=== PATIENT | male | born 1955 | race Caucasian/White ===

== ENCOUNTER 2020-07-11 02:40 | Emergency (ER) | payer SELFPAY ==
[~2020-07-11] VITALS: Ht 182.9 cm; Wt 99.8 kg
[2020-07-11] MEDS ORDERED: ONDANSETRON HCL INJ 2MG/ML 2ML 2 MG/ML VIAL IV STA ×2 (02:43→07:45)
[2020-07-11] MEDS ORDERED: CHLORDIAZEPOXIDE HCL 25 MG CAP PO ONE (02:45)
[2020-07-11] MEDS ORDERED: MULTIVITAMINS- 12 INJECTION 10 ML, FOLIC ACID MDV 5 MG, THIAMINE HCL INJ 100 MG in SODI... IV ONE (02:45)
[2020-07-11 03:15] LABS: BASOPHILS # (AUTO) 0.1 (0.0-0.1); BASOPHILS % 0.9 % (0.0-1.0); EOSINOPHILS # (AUTO) 0.1 (0.0-0.4); EOSINOPHILS % 1.1 % (0.0-6.0); HEMATOCRIT 42.2 % (38.2-49.6); HEMOGLOBIN 15.2 g/dL (14.0-18.0); LYMPHOCYTES # (AUTO) 4.4 (1.0-3.2); LYMPHOCYTES % 40.7 % (18.0-39.1); MEAN CORPUSCULAR HEMOGLOBIN 36.1 pg (28-32); MEAN CORPUSCULAR VOLUME 100.2 fL (81-99); MONOCYTES # (AUTO) 1.6 (0.2-0.8); MONOCYTES % 14.8 % (4.4-11.3); NEUTROPHILS # (AUTO) 4.5 (2.1-6.9); NEUTROPHILS % 42.1 % (38.7-80.0); PLATELET COUNT 428 x10e3/uL (140-360); RED BLOOD COUNT 4.21 x10e6/uL (4.3-5.7); RED CELL DISTRIBUTION WIDTH 15.5 % (11.7-14.4)
[2020-07-11 03:35] LABS: ALANINE AMINOTRANSFERASE 87 IU/L (0-55); ALBUMIN 4.3 g/dL (3.5-5.0); ALBUMIN/GLOBULIN RATIO 0.9 (0.8-2.0); ALKALINE PHOSPHATASE 61 IU/L (40-150); ANION GAP 20.8 mmol/L (8-16); BLOOD UREA NITROGEN 12 mg/dL (7-26); BUN/CREATININE RATIO 11 (6-25); CALCIUM 8.7 mg/dL (8.4-10.2); CARBON DIOXIDE 22 mmol/L (22-29); CHLORIDE 101 mmol/L (98-107); CREATINE KINASE 142 IU/L (30-200); CREATININE, SERUM 1.06 mg/dL (0.72-1.25); EST GLOMERULAR FILTRATION RATE > 60 ML/MIN (60-); GLUCOSE 101 mg/dL (74-118); POTASSIUM 3.8 mmol/L (3.5-5.1); SODIUM 140 mmol/L (136-145)
[2020-07-11] MEDS ORDERED: ONDANSETRON HCL INJ 2MG/ML 2ML 2 MG/ML VIAL ONE (03:53)
--- NOTE | 2020-07-11 03:57 | Emergency Department Note ---
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 Arrival Mode: [place] Campaign Management Senior Manager Required: No Onset (how long ago): day(s) (2) Location: all over Quality: shakes, nausea Radiation: Reports non-radiation Severity: severe Onset quality: gradual Duration (how long): day(s) (2) Timing of current episode: intermittent Progression: worsening Chronicity: recurrent Context: Denies recent illness, Denies recent surgery Relieving factors: other (drinking etoh) Exacerbating factors: other (stop drinking etoh) Associated symptoms: Reports denies other symptoms Past Medical/Family History Physician Review I have reviewed the patient's past medical and family history. Any updates have been documented here. Past Medical History Recent Fever: No Clinical Suspicion of Infectio: No New/Unexplained Change in Ment: No Past Medical History: Hypothyroidism, Hepatitis C, Seizure Disorder, Anxiety, Depression Other Medical History: ETOH ABUSE/WITHDRAWL Other Surgery: SPLEENECTOMY EXPLORATORY LAP. Social History Smoking Cessation: Never Smoker Alcohol Use: Daily (heavy) Any Illegal Drug Use: No Family History Family history of heart diseas: No Review of Systems Review of Systems Constitutional: Reports no symptoms EENTM: Reports no symptoms Cardiovascular: Reports no symptoms Respiratory: Reports no symptoms Gastrointestinal: Reports no symptoms Genitourinary: Reports no symptoms Musculoskeletal: Reports no symptoms Integumentary: Reports no symptoms Neurological: Reports as per HPI Psychological: Reports no symptoms Endocrine: Reports no symptoms Hematological/Lymphatic: Reports no symptoms Physical Exam Related Data Allergies: Coded Allergies: No Known Allergies (Unverified , 07/11/20) Triage Vital Signs Vital Signs Date Time Temp Pulse Resp B/P (MAP) Pulse Ox O2 Delivery O2 Flow Rate FiO2 07/11/20 02:40 98.8 109 24 133/113 96 Room Air Vital signs reviewed: Yes Physical Exam CONSTITUTIONAL Constitutional: Present well-developed, Present well-nourished, Present distressed (mild) HENT HENT: Present normocephalic, Present atraumatic, Present oropharynx clear/moist, Present nose normal HENT L/R: Present left ext ear normal, Present right ext ear normal EYES Eyes: Reports PERRL, Reports conjunctivae normal NECK Neck: Present ROM normal PULMONARY Pulmonary: Present effort normal, Present breath sounds normal CARDIOVASCULAR Cardiovascular: Present regular rhythm, Present heart sounds normal, Present capillary refill normal, Present tachycardia GASTROINTESTINAL Abdominal: Present soft, Present nontender, Present bowel sounds normal GENITOURINARY Genitourinary: Present exam deferred SKIN Skin: Present warm, Present dry MUSCULOSKELETAL pt with left knee pain with rom, mild swelling present NEUROLOGICAL Neurological: Present alert, Present oriented x 3, Present no gross motor or sensory deficits PSYCHOLOGICAL Psychological: Present mood/affect normal, Present judgement normal Results Laboratory Result Diagram: 07/11/20 0255 07/11/20 0255 Laboratory Laboratory Tests Test 07/11/20 02:55 07/11/20 02:53 White Blood Count 10.75 x10e3/uL (4.8-10.8) Red Blood Count 4.21 x10e6/uL (4.3-5.7) Hemoglobin 15.2 g/dL (14.0-18.0) Hematocrit 42.2 % (38.2-49.6) Mean Corpuscular Volume 100.2 fL (81-99) Mean Corpuscular Hemoglobin 36.1 pg (28-32) Mean Corpuscular Hemoglobin Concent 36.0 g/dL (31-35) Red Cell Distribution Width 15.5 % (11.7-14.4) Platelet Count 428 x10e3/uL (140-360) Neutrophils (%) (Auto) 42.1 % (38.7-80.0) Lymphocytes (%) (Auto) 40.7 % (18.0-39.1) Monocytes (%) (Auto) 14.8 % (4.4-11.3) Eosinophils (%) (Auto) 1.1 % (0.0-6.0) Basophils (%) (Auto) 0.9 % (0.0-1.0) Neutrophils # (Auto) 4.5 (2.1-6.9) Lymphocytes # (Auto) 4.4 (1.0-3.2) Monocytes # (Auto) 1.6 (0.2-0.8) Eosinophils # (Auto) 0.1 (0.0-0.4) Basophils # (Auto) 0.1 (0.0-0.1) Absolute Immature Granulocyte (auto 0.04 x10e3/uL (0-0.1) Sodium Level 140 mmol/L (136-145) Potassium Level 3.8 mmol/L (3.5-5.1) Chloride Level 101 mmol/L (98-107) Carbon Dioxide Level 22 mmol/L (22-29) Anion Gap 20.8 mmol/L (8-16) Blood Urea Nitrogen 12 mg/dL (7-26) Creatinine 1.06 mg/dL (0.72-1.25) Estimat Glomerular Filtration Rate > 60 ML/MIN (60-) BUN/Creatinine Ratio 11 (6-25) Glucose Level 101 mg/dL (74-118) Calcium Level 8.7 mg/dL (8.4-10.2) Total Bilirubin 0.8 mg/dL (0.2-1.2) Aspartate Amino Transf (AST/SGOT) 109 IU/L (5-34) Alanine Aminotransferase (ALT/SGPT) 87 IU/L (0-55) Alkaline Phosphatase 61 IU/L (40-150) Creatine Kinase 142 IU/L (30-200) Creatine Kinase MB 1.30 ng/mL (0-5.0) Troponin I 0.005 ng/mL (0-0.300) Total Protein 8.9 g/dL (6.5-8.1) Albumin 4.3 g/dL (3.5-5.0) Globulin 4.6 g/dL (2.3-3.5) Albumin/Globulin Ratio 0.9 (0.8-2.0) Amylase Level 63 U/L (25-125) Lipase 21 U/L (8-78) Ethyl Alcohol Level 219.6 mg/dL (0.0-10.0) Coronavirus (PCR) Not detected (NOTDETECTED) Laboratory Tests Test 07/11/20 02:55 07/11/20 02:53 White Blood Count 10.75 x10e3/uL (4.8-10.8) Red Blood Count 4.21 x10e6/uL (4.3-5.7) Hemoglobin 15.2 g/dL (14.0-18.0) Hematocrit 42.2 % (38.2-49.6) Mean Corpuscular Volume 100.2 fL (81-99) Mean Corpuscular Hemoglobin 36.1 pg (28-32) Mean Corpuscular Hemoglobin Concent 36.0 g/dL (31-35) Red Cell Distribution Width 15.5 % (11.7-14.4) Platelet Count 428 x10e3/uL (140-360) Neutrophils (%) (Auto) 42.1 % (38.7-80.0) Lymphocytes (%) (Auto) 40.7 % (18.0-39.1) Monocytes (%) (Auto) 14.8 % (4.4-11.3) Eosinophils (%) (Auto) 1.1 % (0.0-6.0) Basophils (%) (Auto) 0.9 % (0.0-1.0) Neutrophils # (Auto) 4.5 (2.1-6.9) Lymphocytes # (Auto) 4.4 (1.0-3.2) Monocytes # (Auto) 1.6 (0.2-0.8) Eosinophils # (Auto) 0.1 (0.0-0.4) Basophils # (Auto) 0.1 (0.0-0.1) Absolute Immature Granulocyte (auto 0.04 x10e3/uL (0-0.1) Sodium Level 140 mmol/L (136-145) Potassium Level 3.8 mmol/L (3.5-5.1) Chloride Level 101 mmol/L (98-107) Carbon Dioxide Level 22 mmol/L (22-29) Anion Gap 20.8 mmol/L (8-16) Blood Urea Nitrogen 12 mg/dL (7-26) Creatinine 1.06 mg/dL (0.72-1.25) Estimat Glomerular Filtration Rate > 60 ML/MIN (60-) BUN/Creatinine Ratio 11 (6-25) Glucose Level 101 mg/dL (74-118) Calcium Level 8.7 mg/dL (8.4-10.2) Total Bilirubin 0.8 mg/dL (0.2-1.2) Aspartate Amino Transf (AST/SGOT) 109 IU/L (5-34) Alanine Aminotransferase (ALT/SGPT) 87 IU/L (0-55) Alkaline Phosphatase 61 IU/L (40-150) Creatine Kinase 142 IU/L (30-200) Total Protein 8.9 g/dL (6.5-8.1) Albumin 4.3 g/dL (3.5-5.0) Globulin 4.6 g/dL (2.3-3.5) Albumin/Globulin Ratio 0.9 (0.8-2.0) Amylase Level 63 U/L (25-125) Lipase 21 U/L (8-78) Ethyl Alcohol Level 219.6 mg/dL (0.0-10.0) Lab results reviewed: Yes Imaging Imaging results reviewed: Yes Impressions Procedure: [id number] DX/KNEE LEFT THREE VIEWS Exam Date: Exam Time: REPORT STATUS: Signed KNEE LEFT THREE VIEWS - 3 views HISTORY: Pain COMPARISON: None available. FINDINGS: Bones: No acute displaced fracture. Osseous alignment is within normal limits. Joints: The joint spaces are well-maintained. Soft tissues: The soft tissues appear unremarkable. IMPRESSION: No acute radiographic abnormality. Signed by: Dr. Alex Krishnan MD on 07/11/2020 3:55 AM Dictated By: ALEX KRISNHAN MD 4 Transcribed By: MILKA on 07/11/20354 COPY TO: LEVY HERNANDEZ MD~ Procedure: [id number] DX/CHEST SINGLE (PORTABLE) Exam Date: Exam Time: REPORT STATUS: Signed EXAMINATION: CHEST SINGLE (PORTABLE) INDICATION: ^S/P FALL, ETOH WITHDRAWAL ^Y COMPARISON: None FINDINGS: AP view TUBES and LINES: None. LUNGS: Limited by body habitus and slight rotation. There is no evidence of pneumonia or pulmonary edema. PLEURA: No pleural effusion or pneumothorax. HEART AND MEDIASTINUM: The cardiomediastinal silhouette is unremarkable. BONES AND SOFT TISSUES: No acute osseous lesion. Soft tissues are unremarkable. UPPER ABDOMEN: No free air under the diaphragm. IMPRESSION: No acute thoracic abnormality. Signed by: Dr. Alex Krishnan MD on 07/11/2020 3:54 AM Dictated By: ALEX KRISHNAN MD 3 Transcribed By: MILKA on 07/11/20353 COPY TO: LEVY HERNANDEZ MD~ Procedure: [id number] CT/CT BRAIN WO Exam Date: 07/11/20 Exam Time: 0330 REPORT STATUS: Signed EXAMINATION: Head CT without contrast. HISTORY:Status post fall. COMPARISON:None. TECHNIQUE: Multidetector axial images were obtained from the foramen magnum to the vertex without contrast. The images were reconstructed using brain and bone algorithms. Thin section brain images were reformatted into coronal and sagittal planes. Dose modulation, iterative reconstruction, and/or weight based adjustment of the mA/kV was utilized to reduce the radiation dose to as low as reasonably achievable. Intravenous contrast: None IMAGE QUALITY: Acceptable. FINDINGS: Skull/scalp: No lytic or blastic. lesions. No surgical changes. Parenchyma: Nonspecific bilateral frontoparietal patchy white matter hypodensity are likely related to small vessel ischemic changes. No acute hemorrhage, mass or acute major vascular territorial infarct. Arteries: No density suggestive of thrombosis. Dural sinuses: No abnormal density suggestive of thrombosis. Ventricles: Mild to moderate compensated dilatation due to volume loss. No acute hydrocephalus. Extra-axial spaces: No abnormal density. Brain volume: Moderate generalized predominantly bilateral frontal cerebral volume loss. Craniocervical junction: No mass, Chiari malformation, or basilar invagination. Sella: No mass. Paranasal/mastoid sinuses: Imaged portions unremarkable. IMPRESSION: 1. No acute intracranial abnormality, particularly no acute hemorrhage, mass or major vascular territorial infarct. 2. Mild supratentorial white matter microvascular ischemic changes. 3. Moderate predominantly bilateral frontal cerebral volume loss. Mild cerebellar volume loss. Signed by: Dr. Tana Alan M.D. on 07/11/2020 4:04 AM Dictated By: TANA ALAN MD 3 Transcribed By: MILKA on 07/11/20403 COPY TO: LEVY HERNANDEZ MD~ Procedures 12 Lead ECG Interpretation ECG Interpretation : ECG: ECG 1 Campaign Management Senior Manager: Interpreted by ED physician Date: Jul 11, 2020 Time: 03:09 Rhythm: sinus tachycardia Rate: tachycardia BPM: 102 QRS axis: normal ST segments normal: Yes T waves normal: Yes Clinical Impression: non-specific ECG Assessment & Plan Medical Decision Making MDM pt with etoh withdrawal, pt with tachycardia and hypertensive on arrival cbc,cmp, ekg, cxr, ct brain, etoh, ordered to eval for subdural bleed, etoh intoxication, electrolyte abnormality, anemia banana bag 1 liter ordered at rate of 150 cc/hour librium 25 mg po ordered zofran 4 mg iv ordered pt needs icu bed, no icu beds available at this facility dr calvo at [facility] accepts pt for transfer Assessment & Plan Final Impression: (1) Alcohol withdrawal (2) Alcohol withdrawal syndrome Depart Disposition: [facility]ANS TO OTHER [facility] Last Vital Signs Date Time Temp Pulse Resp B/P (MAP) Pulse Ox O2 Delivery O2 Flow Rate FiO2 07/11/20 03:33 111 28 144/109 96 Room Air 07/11/20 02:40 98.8 Medications in the ED Multivitamins 10 ml/Folic Acid 5 mg/Thiamine HCl 100 mg/Sodium Chloride 1,012 ml @ 150 mls/hr [id number] ONCE IV ; Start 07/11/20 at 02:45; Stop 07/11/20 at 09:29 Ondansetron HCl 4 mg NOW STAT IV ; Start 07/11/20 at 02:43; Stop 07/11/20 at 02:44 Chlordiazepoxide HCl 25 mg ONCE ONCE PO ; Start 07/11/20 at 02:45; Stop 07/11/20 at 02:46 Ondansetron HCl 4 mg STK-MED ONCE .ROUTE ; Start 07/11/20 at 03:53; Stop 07/11/20 at 03:46; Status DC LEVY HERNANDEZ MD Jul 11, 2020 03:57
--- NOTE | 2020-07-11 04:08 | Diagnostic Imaging Report ---
EXAMINATION: Head CT without contrast. HISTORY:Status post fall. COMPARISON:None. TECHNIQUE: Multidetector axial images were obtained from the foramen magnum to the vertex without contrast. The images were reconstructed using brain and bone algorithms. Thin section brain images were reformatted into coronal and sagittal planes. Dose modulation, iterative reconstruction, and/or weight based adjustment of the mA/kV was utilized to reduce the radiation dose to as low as reasonably achievable. Intravenous contrast: None IMAGE QUALITY: Acceptable. FINDINGS: Skull/scalp: No lytic or blastic. lesions. No surgical changes. Parenchyma: Nonspecific bilateral frontoparietal patchy white matter hypodensity are likely related to small vessel ischemic changes. No acute hemorrhage, mass or acute major vascular territorial infarct. Arteries: No density suggestive of thrombosis. Dural sinuses: No abnormal density suggestive of thrombosis. Ventricles: Mild to moderate compensated dilatation due to volume loss. No acute hydrocephalus. Extra-axial spaces: No abnormal density. Brain volume: Moderate generalized predominantly bilateral frontal cerebral volume loss. Craniocervical junction: No mass, Chiari malformation, or basilar invagination. Sella: No mass. Paranasal/mastoid sinuses: Imaged portions unremarkable. IMPRESSION: 1. No acute intracranial abnormality, particularly no acute hemorrhage, mass or major vascular territorial infarct. 2. Mild supratentorial white matter microvascular ischemic changes. 3. Moderate predominantly bilateral frontal cerebral volume loss. Mild cerebellar volume loss. Signed by: Dr. Tana Alan M.D. on 07/11/2020 4:04 AM
--- OUTSIDE RECORDS SUMMARY | 2020-07-11 04:08 | XMS REPORT | Clinical Summary ---
Author Author [facility] Organization [facility] Address Unknown Phone Unavailable Care Team Providers Care Assisted Living Director Name Role Phone Daly Underwood CONTROLLER INSTRUCTOR PCP Allergies No Known Allergies Medications End Date Status Medication Sig Dispensed Refills Start Date Active gabapentin (NEURONTIN) 1 capsule 90 capsule 0 300 mg every 6 hours 9 capsuleIndications: on Day 1; 1 Alcohol withdrawal capsule every syndrome without 8 hours on complication day 2.; 1 capsule every 12 hours on day 3; 1 capsule daily on day 4. Active folic acid (FOLVITE) 1 mg Take 1 tablet 30 tablet 0 tabletIndications: by mouth 9 Alcohol withdrawal daily. syndrome without complication Active metoprolol succinate Take 0.5 30 tablet 2 06/24 (TOPROL XL) 50 mg tablets by 9 extended release mouth daily. tabletIndications: Essential hypertension, benign Active naproxen (NAPROSYN) 500 Take 1 tablet 40 tablet 0 mg tabletIndications: by mouth 2 9 Chronic right-sided low times daily back pain with as needed for right-sided sciatica Pain. Active GUAIFENESIN-DM CR Take 1 tablet 30 tablet 0 (MUCINEX DM) 30-600 mg by mouth 2 0 tabletIndications: Acute times daily URI as needed for Cough or Congestion. Active loratadine (CLARITIN) 10 Take 1 tablet 30 tablet 0 mg tabletIndications: by mouth 0 Acute URI daily. Active chlordiazePOXIDE DO NOT TAKE 20 capsule 0 (LIBRIUM) 25 mg IF DRINKING 0 capsuleIndications: ALCOHOL. Take Alcohol withdrawal two tablets syndrome without every six complication hours on the first day, then one tablet every six hours on day 2 and 3. Active amLODIPine (NORVASC) 5 mg Take 1 tablet 30 tablet 1 tabletIndications: by mouth 0 Essential hypertension, daily. 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 08/07/2019 Discontinued (Reorder) naproxen (NAPROSYN) 500 Take 1 tablet 40 tablet 0 mg tabletIndications: by mouth 2 9 Chronic right-sided low times daily back pain with as needed for right-sided sciatica Pain. 07/14/2019 Discontinued sertraline (ZOLOFT) 50 mg Take 1 tablet 30 tablet 1 tabletIndications: ASTRID by mouth 9 (generalized anxiety daily for 60 disorder), Moderate days. episode of recurrent major depressive disorder 07/14/2019 Discontinued hydrOXYzine (ATARAX) 25 Take 1-2 60 tablet 1 mg tabletIndications: ASTRID tablets by 9 (generalized anxiety mouth nightly disorder), Moderate at bedtime as episode of recurrent needed for up major depressive disorder to 60 days for Anxiety or Insomnia. 09/10/2019 ledipasvir-sofosbuvir Take 1 tablet 28 tablet 2 (HARVONI) 90-400 mg by mouth 9 TabIndications: Chronic daily for 84 hepatitis C without days. 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 benign 09/07/2019 Discontinued (Reorder) sertraline (ZOLOFT) 50 mg Take 1 tablet 30 tablet 1 tabletIndications: ASTRID by mouth 9 (generalized anxiety daily for 60 disorder), Moderate days. episode of recurrent major depressive disorder 09/07/2019 Discontinued (Reorder) hydrOXYzine (ATARAX) 25 Take 1 to 2 60 tablet 1 mg tabletIndications: ASTRID tablets by 9 (generalized anxiety mouth nightly disorder), Moderate at bedtime as episode of recurrent needed for up major depressive disorder to 60 days for Anxiety or Insomnia. 10/13/2019 Discontinued (Reorder) loratadine (CLARITIN) 10 Take 1 tablet 30 tablet 0 mg tabletIndications: by mouth 9 Environmental allergies daily. 09/15/2019 Discontinued sertraline (ZOLOFT) 50 mg Take 1 tablet 30 tablet 0 tabletIndications: ASTRID by mouth 0 (generalized anxiety daily. disorder), Moderate episode of recurrent major depressive disorder 02/22/2020 Discontinued (Alternate ther apy) amLODIPine (NORVASC) 2.5 Take 1 tablet 30 tablet 0 mg tabletIndications: by mouth 0 Essential hypertension, daily. benign 09/15/2019 Discontinued hydrOXYzine (ATARAX) 25 Take 1-2 60 tablet 0 mg tabletIndications: ASTRID tablets by 0 (generalized anxiety mouth nightly disorder), Moderate at bedtime as episode of recurrent needed for major depressive disorder Anxiety or Insomnia. 10/09/2019 Discontinued sertraline (ZOLOFT) 50 mg Take 1 tablet 90 tablet 0 tabletIndications: ASTRID by mouth 0 (generalized anxiety daily for 90 disorder), Moderate days. episode of recurrent major depressive disorder 12/17/2019 hydrOXYzine (ATARAX) 25 Take 1-2 180 tablet 0 mg tabletIndications: ASTRID tablets by 0 (generalized anxiety mouth nightly disorder), Moderate at bedtime as episode of recurrent needed for up major depressive disorder to 90 days for Anxiety or Insomnia. 12/29/2019 Discontinued (Reorder) sertraline (ZOLOFT) 50 mg Take 1 tablet 30 tablet 1 tabletIndications: ASTRID by mouth 0 (generalized anxiety daily for 90 disorder), Moderate days. episode of recurrent major depressive disorder 06/21/2020 Discontinued sertraline (ZOLOFT) 50 mg Take 1 tablet 90 tablet 1 tabletIndications: ASTRID by mouth 0 (generalized anxiety daily for 90 disorder), Moderate days. episode of recurrent major depressive disorder 01/08/2020 hydrOXYzine (ATARAX) 25 Take 1 tablet 30 tablet 0 mg tabletIndications: ASTRID by mouth 3 0 (generalized anxiety times daily disorder) as needed for up to 10 days for Itching. Active Problems Problem Noted Date Hypothyroidism due to acquired atrophy of thyroid Essential hypertension, benign 02/06/2019 MDD (major depressive disorder) 02/06/2019 ASTRID (generalized anxiety disorder) 02/06/2019 Alcohol withdrawal 06/02/2018 Nausea 05/20/2018 Obesity, Class I, BMI 30-34.9 05/03/2018 Chronic right-sided low back pain with right-sided sc iatica since 201405/03/2018 Chronic hepatitis C without hepatic coma 05/03/2018 Alcoholic intoxication without complica tion Encounters Care Team Description Date Type Specialty Caryl Rodrigues MD Medications 06/21/2020 Refill Family Practice Emperatriz Ambrocio MD Zaidi, Hashim Q, MD Alcoholic intoxication without complicat ion (Primary Dx); Hypokalemia 04/09/2020 Emergency Emergency Medicine Ya Fischer NP 02/29/2020 Telephonic Gastroenterology Encounter Ania Adams MD Hypothyroidism due to acquired atrophy o f thyroid 02/15/2020 Telephonic Family Practice Encounter Ania Adams MD Medications 02/12/2020 Refill Internal Medicine Amy Stratton LVN 01/08/2020 Orders Only Family Practice Caryl Rodrigues MD ASTRID (generalized anxiety disorder); Moderate episode of recurrent major depressive disorder; Alcohol withdrawal syndrome without complication 12/29/2019 Telephonic Family Practice Encounter Caryl Rodrigues MD 12/29/2019 Orders Only Family Practice Casie Oswald NP Acute URI (Primary Dx); Essential hypertension; Preventative health care; Screening for HIV (human immunodeficiency virus); Homeless; Health education 10/13/2019 Office Visit Family Practice Daly Underwood NP Medications 10/09/2019 Refill Family Practice Aria Horn MD Alcohol use disorder, severe, in early r emission, in controlled environment, dependence (Primary Dx); ASTRID (generalized anxiety disorder); Moderate episode of recurrent major depressive disorder; History of posttraumatic stress disorder (PTSD) 09/15/2019 Office Visit Psychiatry Ya Fischer NP Chronic hepatitis C without hepatic coma (Primary Dx) 09/14/2019 Office Visit Gastroenterology Nolan Engel NP Essential hypertension, benign (Primary Dx); Screening for HIV (human immunodeficiency virus); ASTRID (generalized anxiety disorder); Moderate episode of recurrent major depressive disorder; Dietary counseling for Above / Below Normal BMI 09/07/2019 Office Visit Family Practice Nolan Engel NP Environmental allergies; Chronic right-sided low back pain with right-sided sciatica x 3 years 08/07/2019 Office Visit Family [facility] Ya Fischer NP Anderson, Tonya Nicole, LUIS 07/20/2019 Nurse Only Aria Horn MD ASTRID (generalized anxiety disorder); Moderate episode of recurrent major depressive disorder 07/14/2019 Office Visit Psychiatry after 07/11/2019 Immunizations Name Administration Dates Next Due Influenza Vaccine 11/14/2018 (Deferred: Vacci ne Unavailable) Influenza, Seasonal, 06/26/2017 Injectable Influenza, 06/30/2019 Vaccine<FLUCELVAX>(Multi- Dose) PPD 05/13/2019 PPV 23 (Pneumococcal 10/28/2017 Polysaccharide 23 Valent) Twinrix-HEP A&b 07/20/2019, 06/18/2019 Family History Medical History Relation Name Comments Hypertension Father Stroke Father Hypertension Mother Relation Name Status Comments Brother Alive Father Mother Alive Social History Date Tobacco Use Types Packs/Day Years Used Never Smoker Smokeless Tobacco: Never Used Tobacco Cessation: Counseling Given: Yes Drinks/Week oz/Week Comments Alcohol Use 60 Shots of liquor 60.0 Last time used 05/13/19 Yes Food Insecurity Answer Date Recorded Within the past 12 months, you worried that your Never salvador e 05/13/2019 food would run out before you got money to buy more. Within the past 12 months, the food you bought Never true 05/13/2019 just didn't last and you didn't have mo tish to get more. Sex Assigned at Date Recorded Not on file Industry Job Start Date Occupation Not on file Not on file Not on file Travel End Travel History Travel Start No recent travel history available. Last Filed Vital Signs Reading Time Taken Comments Vital Sign 151/93 04/09/2020 8:00 AM CDT Blood Pressure 72 04/09/2020 8:00 AM CDT Pulse 36.5 C (97.7 F) 04/09/2020 8:00 AM CDT Temperature 17 04/09/2020 8:00 AM CDT Respiratory Rate 96% 04/09/2020 8:00 AM CDT Oxygen Saturation - - Inhaled Oxygen Concentration 102.1 kg (225 lb) 10/13/2019 1:26 PM PART MAKER Weight 179.3 cm (5' 10.6") 10/13/2019 1:26 PM PART MAKER Height 31.74 10/13/2019 1:26 PM PART MAKER Body Mass Index Plan of Treatment Health Maintenance Due Date Last Done Comments Colorectal Cancer Scrn 05/20/2020 05/20/2019 Annual (FIT/FOBT) Age 50 to 75 IMM Influenza Seasonal 06/02/2020 06/30/2019, Jun to October (>/= 19 yrs) 06/26/2017 Goals Goal Patient Associated Recent Progress Patient-Stat Aut hor Goal Type Problems ed? 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 Mechanic Procedures Comments Procedure Name Priority Date/Time Associated Diag nosis LIPASE STAT 04/09/2020 7:06 AM CDT LIVER PROFILE STAT 04/09/2020 7:06 AM CDT BASIC METABOLIC PANEL STAT 04/09/2020 7:06 AM CDT CBC STAT 04/09/2020 6:00 AM CDT CBC/DIFF STAT 04/09/2020 6:00 AM CDT CONSULT CLINICAL CASE STAT 04/09/2020 MANAGEMENT (RN/SW) 5:45 AM CDT POC RAPID HIV Routine 10/13/2019 Screening for H IV (human 1:25 PM PART MAKER immunodeficiency virus) after 07/11/2019 Results * Liver Profile (04/09/2020 7:06 AM CDT) Total Protein 7.0 6.0 - 8.3 g/dL [facility] Bilirubin, 0.8 0.2 - 1.2 mg/dL [facility] Total Alkaline 70 34 - 104 U/L [facility] Phosphatase AST 83 (H) 13 - 39 U/L [facility] Direct 0.2 0.0 - 0.2 mg/dL [facility] Bilirubin ALT 53 (H) 7 - 52 U/L [facility] Albumin 3.8 (L) 4.2 - 5.5 g/dL [facility] Specimen Blood - Arm, left Performing Organization Address [facility] [address] [place] [address] [phone] * Lipase (04/09/2020 7:06 AM CDT) Lipase 14 11 - 82 U/L [facility] Specimen Blood - Arm, left Performing Organization Address [facility] [address] [place] [address] [phone] * Basic Metabolic Panel (04/09/2020 7:06 AM CDT) Sodium 141 136 - 145 mmol/L [facility] Potassium 3.1 (L) 3.5 - 5.1 mmol/L [facility] Chloride 101 98 - 107 mmol/L [facility] CO2 26 21 - 31 mmol/L [facility] Urea Nitrogen 9.0 7.0 - 25.0 mg/dL [facility] Creatinine 1.1 0.7 - 1.3 mg/dL [facility] Glucose 101 70 - 110 mg/dL [facility] Calcium 7.9 (L) 8.6 - 10.3 mg/dL [facility] GFR, Estimated 68 (L) >=90 mL/min/1.73 m2 [facility] Anion Gap 14 5 - 16 mmol/L [facility] Specimen Blood - Arm, left Performing Organization Address [facility] [address] [place] [address] [phone] * CBC/Diff (04/09/2020 6:00 AM CDT) WBC 10.3 4.5 - 12.0 K/uL [facility] RBC 3.65 (L) 4.60 - 6.20 M/uL [facility] Hemoglobin 13.2 (L) 14.0 - 18.0 g/dL [facility] Hematocrit 38.4 (L) 40.0 - 54.0 % [facility] MCV 105.2 (H) 82.0 - 92.0 fL [facility] MCH 36.2 (H) 27.0 - 31.0 pg [facility] MCHC 34.4 32.0 - 36.0 g/dL [facility] RDW 59.2 (H) 35.1 - 43.9 fL [facility] Platelet 447 (H) 150 - 400 K/uL [facility] Mean Platelet 10.2 9.4 - 12.4 fL [facility] Volume Percent NRBC 0.0 % [facility] Neutrophil 47.6 34.0 - 67.9 % [facility] Lymphs 29.8 21.8 - 50.0 % [facility] Monocytes 20.3 (H) 5.3 - 12.0 % [facility] Eos 0.8 0.8 - 5.0 % [facility] Basos 1.2 0.2 - 1.2 % [facility] Immature 0.3 0.0 - 0.5 % [facility] Granulocytes Neutrophils 4.91 1.78 - 5.36 K/uL [facility] (Absolute) Lymphs 3.07 1.32 - 3.57 K/uL [facility] (Absolute) Monocytes(Absol 2.09 (H) 0.30 - 0.82 K/uL [facility] RY suzette) Eos (Absolute) 0.08 0.04 - 0.54 K/uL [facility] Baso (Absolute) 0.12 (H) 0.01 - 0.08 K/uL [facility] Immature Grans 0.03 0.00 - 0.03 K/uL [facility] (Abs) Absolute NRBC 0.00 K/uL [facility] Specimen Blood Performing Organization Address City/State/Zipcode Ph one Number [facility] [address] [place] [address] * POC RAPID HIV (10/13/2019 1:25 PM PART MAKER) Rapid HIV Negative Result Rapid HIV Pass Control Specimen Blood after 07/11/2019 Advance Directives Patient Time Study Engineer Explanation Type Date Recorded Advance Directives 09/07/2019 1:49 PM and Living Will Advance Directives 10/13/2019 1:30 PM and Living Will
--- OUTSIDE RECORDS SUMMARY | 2020-07-11 04:09 | XMS REPORT | Clinical Summary ---
Author Author [facility] Address Unknown Phone Unavailable Care Team Providers Care Senior Controls Analyst Name Role Phone Asked, No Pcp PCP Unavailable Allergies No Known Active Allergies Medications End Date Status Medication Sig Dispensed Refills Start Date Active metoprolol succinate XL Take 25 mg by 0 (TOPROL-XL) 25 mg 24 hr mouth daily. tablet Active levothyroxine (SYNTHROID) Take 88 mcg 0 88 mcg tablet by mouth daily. 04/01/2020 Discontinued (Stop Taking at Discharge) ondansetron ODT (Zofran Take 1 tablet 6 tablet 0 ODT) 4 MG disintegrating (4 mg total) 0 tablet by mouth every 8 (eight) hours as needed for vomiting for up to 30 days. 03/09/2020 chlordiazePOXIDE Take 1 15 capsule 0 (LIBRIUM) 25 MG capsule capsule (25 0 mg total) by mouth 3 (three) times a day as needed for anxiety or withdrawal for up to 5 days. 04/09/2020 chlordiazePOXIDE 10mg tid x 24 capsule 0 (LIBRIUM) 5 MG capsule 2days, then 0 5mg tid x 2d, then 5mg bid x 2d, then 5mg qhs for 2d 05/01/2020 gabapentin (NEURONTIN) Take 1 90 capsule 0 100 mg capsule capsule (100 0 mg total) by mouth 3 (three) times a day for 30 days. 05/02/2020 pantoprazole (PROTONIX) Take 1 tablet 30 tablet 0 40 MG EC tablet (40 mg total) 0 by mouth daily for 30 days. 04/06/2020 traMADoL (Ultram) 50 mg Take 1 tablet 10 tablet 0 tabletIndications: acute (50 mg total) 0 pain by mouth every 6 (six) hours as needed for moderate pain for up to 5 days .acute pain. 04/22/2020 sulfamethoxazole-trimetho Take 1 tablet 42 tablet 0 prim (Bactrim DS) 800-160 by mouth 2 0 mg per tablet (two) times a day for 21 days. Active Problems Not on file Resolved Problems Problem Noted Date Resolved Date Sepsis 03/28/2020 04/01/2020 Encounters Care Team Description Date Type Specialty Kelly Tovar MA 04/11/2020 Telephone Orthopedic Surgery Tiburcio Dumont MD Adeniyi, Muniru O., MD Patel, MD Jose Hope Sanjay R., MD Sepsis, due to unspecified organism, uns pecified whether acute organ dysfunction present (HCC) (Primary Dx); Left leg cellulitis; Alcohol withdrawal syndrome without complication (HCC); Septic prepatellar bursitis of left knee 03/28/2020 [facility] Internal Pr dicine - Encounter 04/01/2020 03/28/2020 Travel Norah White MD 03/27/2020 Emergency Emergency Medicine Tristin Mcmillan Jr., MD Alcoholic intoxication with complication (HCC) (Primary Dx); Non-intractable vomiting with nausea, unspecified vomiting type 03/04/2020 Emergency Emergency Medicine 03/04/2020 Travel after 07/11/2019 Surgical History Surgery Date Site/Laterality Comments SPLENECTOMY, TOTAL 09/02/1979 - 09/01/1980 Medical History Medical History Date Comments Hepatitis C History of blood transfusion Depression Spleen injury Seizures (HCC) Alcoholism (HCC) Family History Medical History Relation Name Comments No Known Problems Brother Stroke Father No Known Problems Mother No Known Problems Sister Relation Name Status Comments Brother Alive Father Mother Alive Sister Social History Date Tobacco Use Types Packs/Day Years Used Never Smoker Smokeless Tobacco: Never Used Drinks/Week oz/Week Comments Alcohol Use "trying to stop and go into a treatment center" Yes Education Answer Date Recorded What is the highest level of school you have Bachelor's de gree (e.g., BA, 03/29/2020 completed or the highest degree you have received? A B, BS) Sex Assigned at Date Recorded Not on file Last Filed Vital Signs Reading Time Taken Comments Vital Sign 131/79 04/01/2020 8:21 AM CDT Blood Pressure 67 04/01/2020 2:08 PM CDT Pulse 35.8 C (96.4 F) 04/01/2020 8:21 AM CDT Temperature 18 04/01/2020 2:08 PM CDT Respiratory Rate 98% 04/01/2020 8:21 AM CDT Oxygen Saturation - - Inhaled Oxygen Concentration 95.3 kg (210 lb) 03/28/2020 5:16 AM CDT Weight 182.9 cm (6') 03/28/2020 5:16 AM CDT Height 28.48 03/28/2020 5:16 AM CDT Body Mass Index Plan of Treatment Health Maintenance Due Date Last Done Comments COLONOSCOPY SCREENING 11/10/2007 SHINGLES VACCINES (#1) 11/10/2007 INFLUENZA VACCINE 04/02/2020 06/26/2017 Procedures Comments Procedure Name Priority Date/Time Associated Diag nosis XR CHEST 1 VW PORTABLE Routine 04/01/2020 9:33 AM CDT ESTIMATED GFR Routine 04/01/2020 4:25 AM CDT MAGNESIUM LEVEL Routine 04/01/2020 4:25 AM CDT HEPATIC FUNCTION PANEL Routine 04/01/2020 4:25 AM CDT HC COMPLETE BLD COUNT Routine 04/01/2020 W/AUTO DIFF 4:25 AM CDT BASIC METABOLIC PANEL Routine 04/01/2020 4:25 AM CDT PROSTATE SPECIFIC ANTIGEN Routine 03/31/2020 9:53 AM CDT HEPATITIS ACUTE PANEL Routine 03/31/2020 5:04 AM CDT PROCALCITONIN Routine 03/31/2020 5:04 AM CDT ESTIMATED GFR Routine 03/31/2020 4:55 AM CDT PROTHROMBIN TIME WITH INR Routine 03/31/2020 4:55 AM CDT MAGNESIUM LEVEL Routine 03/31/2020 4:55 AM CDT HEPATIC FUNCTION PANEL Routine 03/31/2020 4:55 AM CDT HC COMPLETE BLD COUNT Routine 03/31/2020 W/AUTO DIFF 4:55 AM CDT BASIC METABOLIC PANEL Routine 03/31/2020 4:55 AM CDT CBC HEMOGRAM Routine 03/30/2020 6:10 AM CDT VANCOMYCIN LEVEL, TROUGH Timed 03/29/2020 8:01 PM CDT NBIA-BCWT-AYE-2 TOTAL Routine 03/29/2020 3:20 PM CDT COVID-19 QUALITATIVE PCR Routine 03/29/2020 2:46 PM CDT GRAM STAIN Routine 03/29/2020 2:00 PM CDT AEROBIC CULTURE Routine 03/29/2020 2:00 PM CDT ANAEROBIC CULTURE Routine 03/29/2020 2:00 PM CDT GENERAL Routine 03/29/2020 Septic prepatel lar 1:55 PM CDT bursitis of left knee CT ABDOMEN PELVIS W WO Routine 03/29/2020 CONTRAST 9:33 AM CDT URINE CULTURE Routine 03/29/2020 7:09 AM CDT URINALYSIS SCREEN AND Routine 03/29/2020 MICROSCOPY, WITH REFLEX 6:37 AM CDT TO CULTURE ESTIMATED GFR Routine 03/29/2020 4:52 AM CDT TRIGLYCERIDES Routine 03/29/2020 4:52 AM CDT LDH Routine 03/29/2020 4:52 AM CDT FIBRINOGEN Routine 03/29/2020 4:52 AM CDT FERRITIN LEVEL Routine 03/29/2020 4:52 AM CDT D-DIMER Routine 03/29/2020 4:52 AM CDT COMPREHENSIVE METABOLIC Routine 03/29/2020 PANEL 4:52 AM CDT C-REACTIVE PROTEIN Routine 03/29/2020 4:52 AM CDT HC COMPLETE BLD COUNT Routine 03/29/2020 W/AUTO DIFF 4:52 AM CDT TYPE AND SCREEN Routine 03/29/2020 4:[address] CHEST WO CONTRAST Routine 03/29/2020 2:02 AM CDT ARTERIAL BLOOD GAS Routine 03/29/2020 12:15 AM CDT RESPIRATORY PATHOGEN Routine 03/28/2020 PANEL 11:09 PM CDT LACTIC ACID LEVEL, SEPSIS Timed 03/28/2020 - NOW AND REPEAT 2X EVERY 1:45 PM CDT 3 HOURS TROPONIN Routine 03/28/2020 9:28 AM CDT LACTIC ACID LEVEL, SEPSIS Timed 03/28/2020 - NOW AND REPEAT 2X EVERY 9:28 AM CDT 3 HOURS COVID-19 QUALITATIVE PCR STAT 03/28/2020 9:05 AM CDT URINALYSIS SCREEN AND Routine 03/28/2020 MICROSCOPY, WITH REFLEX 8:21 AM CDT TO CULTURE URINE CULTURE Routine 03/28/2020 8:21 AM CDT XR CHEST 1 VW PORTABLE STAT 03/28/2020 7:00 AM CDT LACTIC ACID LEVEL, SEPSIS Timed 03/28/2020 - NOW AND REPEAT 2X EVERY 6:55 AM CDT 3 HOURS BLOOD CULTURE, AEROBIC & Routine 03/28/2020 ANAEROBIC 6:15 AM CDT ECG ED PRELIMINARY Routine 03/28/2020 INTERPRETATION 6:05 AM CDT SC CRITICAL CARE, E/M Routine 03/28/2020 30-74 MINUTES 6:05 AM CDT BLOOD CULTURE, AEROBIC & Routine 03/28/2020 ANAEROBIC 6:00 AM CDT TROPONIN Routine 03/28/2020 5:44 AM CDT ECG 12-LEAD STAT 03/28/2020 5:32 AM CDT XR KNEE 3 VW LEFT STAT 03/27/2020 6:48 PM CDT ESTIMATED GFR STAT 03/27/2020 5:56 PM CDT TROPONIN Timed 03/27/2020 5:56 PM CDT ALCOHOL LEVEL, BLOOD STAT 03/27/2020 5:56 PM CDT SEDIMENTATION RATE STAT 03/27/2020 5:56 PM CDT C-REACTIVE PROTEIN STAT 03/27/2020 5:56 PM CDT LACTIC ACID LEVEL, SEPSIS STAT 03/27/2020 - NOW AND REPEAT 2X EVERY 5:56 PM CDT 3 HOURS COMPREHENSIVE METABOLIC STAT 03/27/2020 PANEL 5:56 PM CDT HC COMPLETE BLD COUNT STAT 03/27/2020 W/AUTO DIFF 5:56 PM CDT BLOOD CULTURE, AEROBIC & Routine 03/27/2020 ANAEROBIC 5:56 PM CDT BLOOD CULTURE, AEROBIC & Routine 03/27/2020 ANAEROBIC 5:50 PM CDT ECG 12-LEAD STAT 03/27/2020 5:46 PM CDT XR CHEST 1 VW PORTABLE STAT 03/04/2020 2:13 PM CDT TROPONIN Timed 03/04/2020 11:09 AM CDT URINE DRUGS OF ABUSE STAT 03/04/2020 SCREEN 8:46 AM CDT URINALYSIS SCREEN AND Routine 03/04/2020 MICROSCOPY, WITH REFLEX 8:46 AM CDT TO CULTURE URINE CULTURE Routine 03/04/2020 8:46 AM CDT ESTIMATED GFR STAT 03/04/2020 7:52 AM CDT SALICYLATE LEVEL STAT 03/04/2020 7:52 AM CDT ACETAMINOPHEN LEVEL STAT 03/04/2020 7:52 AM CDT ALCOHOL LEVEL, BLOOD STAT 03/04/2020 7:52 AM CDT COMPREHENSIVE METABOLIC STAT 03/04/2020 PANEL 7:52 AM CDT HC COMPLETE BLD COUNT STAT 03/04/2020 W/AUTO DIFF 7:52 AM CDT TROPONIN Timed 03/04/2020 7:52 AM CDT ECG ED PRELIMINARY Routine 03/04/2020 INTERPRETATION 7:45 AM CDT ECG 12-LEAD STAT 03/04/2020 7:32 AM CDT after 07/11/2019 Results * XR Chest 1 Vw Portable (04/01/2020 9:33 AM CDT) Only the most recent of 3 results within the time period is included. Specimen Narrative Performed At EXAMINATION: XR CHEST 1 VW PORTABLE [facility] CLINICAL HISTORY: wheezing COMPARISON: To a previous examination from 03/28/2020 IMPRESSION: The cardiomediastinal silhouette is nor mal in appearance. The lungs are clear. There is no eviden ce of consolidation, congestion, or pneumothorax. A pleural effusion is not present. Visualized skeletal structures demonstr ate no definite abnormality. The left hemidiaphragm is slightly elev ated. [facility]-[id number] Procedure Note Hm Interface, Radiology Results Incoming - 04/01/2020 10:01 AM CDT EXAMINATION: XR CHEST 1 VW PORTABLE CLINICAL HISTORY: wheezing COMPARISON: To a previous examination from 03/28/2020 IMPRESSION: The cardiomediastinal silhouette is normal in appearance. The lungs are clear. There is no evidence of consolidation, congestion, or pneumothorax. A pleural effusion is not present. Visualized skeletal structures demonstrate no definite abnormality. The left hemidiaphragm is slightly elevated. [facility]-[id number] Performing Organization Address City/State/ZIP Code P robbie Number [facility] [address] [place] [address] * Estimated GFR (04/01/2020 4:25 AM CDT) Only the most recent of 5 results within the time period is included. Estimated GFR >=90 mL/min/1.73 m2 [facility] G1 >=90 Normal or high G2 60-89 Mildly decreased G3a 45-59 Mildly to moderately decreased G3b 30-44 Moderately to severely decreased G4 15-29 Severely decreased G5 <15 Kidney failure The eGFR was calculated using the Chronic Kidney Disease Epidemiology Collaboration (CKD-EPI) equation. Interpretation is based on recommendations of the National Kidney Foundation-Kidney Disease Outcomes Quality Initiative (NKF-KDOQI) published in 2014. Specimen Performing Organization Address City/State/ZIP Code P robbie Number [facility] [address] [address] PATHOLOGY AND GENOMIC MEDICINE [address] [address] [facility] * CBC with platelet and differential (04/01/2020 4:25 AM CDT) Only the most recent of 5 results within the time period is included. Pathologist [facility] WBC 10.6 4.5 - 11.0 k/uL [facility] RBC 3.18 (L) 4.40 - 6.00 M/uL [facility] HGB 11.6 (L) 14.0 - 18.0 g/dL [facility] HCT 34.6 (L) 41.0 - 51.0 % [facility] MCV 108.8 (H) 82.0 - 100.0 fL [facility] MCH 36.5 (H) 27.0 - 34.0 pg [facility] MCHC 33.5 31.0 - 37.0 g/dL [facility] RDW - SD 59.9 (H) 37.0 - 55.0 fL [facility] MPV 10.1 8.8 - 13.2 fL [facility] Platelet count 371 150 - 400 K/uL [facility] Nucleated RBC 0.20 /100 WBC [facility] Neutrophils 51.3 39.0 - 69.0 % [facility] Lymphocytes 28.7 25.0 - 45.0 % [facility] Monocytes 15.5 (H) 0.0 - 10.0 % [facility] Eosinophils 3.3 0.0 - 5.0 % [facility] Basophils 0.8 0.0 - 1.0 % [facility] Immature 0.4Comment: "Immature 0.0 - 1.0 % [facility] granulocytes granulocytes" (promyelocytes, METHOD IST myelocytes, metamyelocytes) [facility] Specimen Blood Performing Organization Address City/[facility] [place] [address] PATHOLOGY AND GENOMIC MEDICINE [address] * Magnesium level (04/01/2020 4:25 AM CDT) Only the most recent of 2 results within the time period is included. Magnesium 1.4 (L) 1.7 - 2.4 mg/dL [facility] Specimen Blood Performing Organization Address City/[facility] [place] [address] PATHOLOGY AND GENOMIC MEDICINE [address] * Hepatic function panel (04/01/2020 4:25 AM CDT) Only the most recent of 2 results within the time period is included. Albumin 3.5 3.5 - 5.0 g/dL [facility] Total bilirubin 0.7 0.2 - 1.2 mg/dL [facility] Bilirubin 0.2 0.0 - 0.4 mg/dL [facility] direct [facility] Alkaline 56 30 - 115 U/L [facility] phosphatase [facility] Protein 6.7 6.3 - 8.2 g/dL [facility] ALT 38 10 - 55 U/L [facility] AST 42 15 - 46 U/L [facility] Specimen Blood Performing Organization Address City/State/ZIP [place] [address] PATHOLOGY AND GENOMIC MEDICINE [address] * Basic metabolic panel (04/01/2020 4:25 AM CDT) Only the most recent of 2 results within the time period is included. [facility] Sodium 140 135 - 148 mEq/L [facility] Potassium 3.5 3.5 - 5.0 mEq/L [facility] Chloride 100 99 - 109 mEq/L [facility] CO2 27 24 - 31 mEq/L [facility] Anion gap 13@ANIO 7 - 15 mEq/L [facility] BUN 11 8 - 24 mg/dL [facility] Creatinine 0.80 0.70 - 1.20 mg/dL [facility] Glucose 107 (H) 65 - 99 mg/dL [facility] Calcium 8.0 (L) 8.6 - 10.6 mg/dL [facility] Specimen Blood Performing Organization Address City/[facility] [place] [address] PATHOLOGY AND GENOMIC MEDICINE [address] * Prostate specific antigen (03/31/2020 9:53 AM CDT) [facility] PSA 3.7 0.0 - 4.0 ng/mL [facility] Comment: BAHAI The CONCHA 8000 PSA immunoassay HOSPITAL was used. Results obtained with different assay methods or kits should not be used interchangeably and may be different. Specimen Blood Performing Organization Address City/State/[place] [address] PATHOLOGY AND GENOMIC MEDICINE [address] * Procalcitonin (03/31/2020 5:04 AM CDT) Procalcitonin 0.07 <=0.07 ng/mL [facility] Comment: INTERPRETIVE INFORMATION: Procalcitonin Procalcitonin > 2.00 ng/mL: Procalcitonin levels above 2.00 ng/mL on the first day of ICU admission represent a high risk for progression to severe sepsis and/or septic shock. Procalcitonin < 0.50 ng/mL: Procalcitonin levels below 0.50 ng/mL on the first day of ICU admission represent a low risk for progression to severe sepsis and/or septic shock. If the procalcitonin measurement is performed shortly after the systemic infection process has started (usually less than 6 hours), these values may still be low. As various non-infectious conditions are known to induce procalcitonin as well, procalcitonin levels between 0.5 ng/mL and 2.00 ng/mL should be reviewed carefully to take into account the specific clinical background and condition(s) of the individual patient. Performed By: [place] [address] Street Light Mechanic: Mirian Davies DO, MPH Performed by [facility], [address] [place] [address] [email or web address] Estrada MD - Lab. Director Specimen Serum Performing Organization Address City/[facility] Code P robbie Number [facility] [address] [place] [address] REF [address] [place] [address] * Hepatitis acute panel (03/31/2020 5:04 AM CDT) Pathologist [facility] Hepatitis A IgM Non-reactive Non-reactive [facility] Hepatitis B Non-reactive Non-reactive [facility] core IgM [facility] Hepatitis B Non-reactive Non-reactive [facility] surface Ag [facility] Hepatitis C Ab Reactive (A) Non-reactive [facility] Comment: BAHAI HCV antibody testing initially HOSPITAL Reactive. Confirmation by HCV RNA PCR will be performed and reported separately when completed. Repeat HCV RNA PCR will not be performed if done within 30 days. Specimen Serum Performing Organization Address City/State/ZIP [facility] P robbie Number [facility] DEPARTMENT OF [address] [place] [address] PATHOLOGY AND GENOMIC MEDICINE [address] * Prothrombin time with INR (03/31/2020 4:55 AM CDT) Prothrombin 13.7 11.5 - 14.5 sec [facility] INR 1.0 [facility] Comment: BAHAI The International Normalized [place] Ratio (INR) is a therapeutic HOSPITAL monitoring tool for patients who are stable on oral anticoagulant therapy. An INR of 2.0-3.0 is suggested for deep vein thrombosis/pulmonary embolism. Specimen Blood Performing Organization Address City/[facility] [place] [address] PATHOLOGY [facility] MEDICINE [address] * CBC hemogram (03/30/2020 6:10 AM CDT) Pathologist [facility] WBC 14.8 (H) 4.5 - 11.0 k/uL [facility] RBC 3.49 (L) 4.40 - 6.00 M/uL [facility] HGB 12.9 (L) 14.0 - 18.0 g/dL [facility] HCT 37.6 (L) 41.0 - 51.0 % [facility] MCV 107.7 (H) 82.0 - 100.0 fL [facility] MCH 37.0 (H) 27.0 - 34.0 pg [facility] MCHC 34.3 31.0 - 37.0 g/dL [facility] RDW - SD 59.5 (H) 37.0 - 55.0 fL [facility] MPV 10.6 8.8 - 13.2 fL [facility] Platelet count 414 (H) 150 - 400 K/uL [facility] Nucleated RBC 0.30 /100 WBC [facility] Specimen Blood Performing Organization Address City/[facility] P robbie Number [address] [address] PATHOLOGY AND [facility] MEDICINE [address] * Vancomycin level, trough (03/29/2020 8:01 PM CDT) Vancomycin, 15.1 10.0 - 20.0 ug/mL [facility] trough Comment: BAHAI Therapeutic Ranges: [place] Peak 30.0 - 40.0 HOSPITAL ug/mL Trough 10.0 - 20.0 ug/mL Specimen Blood Performing Organization Address City/State/ZIP Code P robbie Number [facility] DEPARTMENT [address] [facility] [address] [place] [address] PATHOLOGY AND GENOMIC MEDICINE [facility] [place]HAI [address] [facility] [address] [place] [address] [facility] * Hwrm-PMMB-[id number]-2 total (03/29/2020 3:20 PM CDT) [id number] Non-reactive Non-reactive [facility] total Comment: BAHAI This test should not be used HOSPITAL for the diagnosis of acute SARS-CoV-2/COVID-19 infection. Results are for the detection of total SARS-CoV-2 antibodies. Reactive results can be indicative of acute or recent infection. Non-reactive results do not preclude SARS-CoV-2 infection and should not be used as the sole basis for patient management decisions. Results must be combined with clinical observations, patient history, and epidemiological information. The sensitivity of the SARS-CoV-2 Total assay early after infection is unknown. False reactive results may occur due to cross-reactivity from pre-existing antibodies or other possible causes. At this time, it is unknown for how long antibodies to SARS-CoV-2 virus may persist following infection. This test has not been FDA cleared or approved. This test has been authorized by FDA under an EUA for use by authorized laboratories. This test has been authorized only for the presence of total antibodies against SARS-CoV-2, not for any other viruses or pathogens. This test is only authorized for the duration of the declaration that circumstances exist justifying the authorization of emergency use of in vitro diagnostics for detection and/or diagnosis of COVID-19 under Section 564(b)(1) of the Act, 21 U.S.C. 360bbb-3(b)(1), unless authorization is terminated or revoked sooner. Specimen Serum Performing Organization Address City/State/ZIP Code P robbie Number [facility] DEPARTMENT [address] [place] [address] PATHOLOGY AND GENOMIC MEDICINE [facility] [place]HAI [address] [place] [id number] [facility] * COVID-19 qualitative PCR (03/29/2020 2:46 PM CDT) Only the most recent of 2 results within the time period is included. Interpretation Negative results do not [facility] preclude 2019-nCoV infection BAHAI and should not be used as the HOSPITAL sole basis for treatment or other patient management decisions. Negative results must be combined with clinical observations, patient history, and epidemiological information. COVID-19 Not-Detected Not-Detected [facility] qualitative PCR BAHAI result HOSPITAL COVID-19 See link below for PDF Lab [facility] qualitative PCR ReportComment: Case Number: BAHAI [id number] HOSPITAL Specimen Nasopharyngeal swab Performing Organization Address City/[facility]/ZIP Code P robbie Number [facility] [place] [address] PATHOLOGY AND GENOMIC MEDICINE [address] * Aerobic culture (03/29/2020 2:00 PM CDT) Aerobic culture Staphylococcus aureus [facility] isolate Occasional BAHAI susceptibility to follow HOSPITAL This organism is Methicillin Resistant. (A) Comment: Specimen Information Specimen Source: Abscess Specimen Site: Knee Specimen Abscess - Knee Antibiotic Method Susceptibility Organism Ampicillin [place] mcg/mL: Resistant Staphylococcus aureus Cefazolin [place] mcg/mL: Resistant Staphylococcus aureus Chloramphenicol [place] mcg/mL: Susceptible Staphylococcus aureus Clindamycin [place] <=0.5 mcg/mL: Susceptible Staphylococcus aureus Doxycycline [place] <=0.5 mcg/mL: Susceptible Staphylococcus aureus Erythromycin [place] <=0.25 mcg/mL: Susceptible Staphylococcus aureus Linezolid [place] 2 mcg/mL: Susceptible Staphylococcus aureus Minocycline [place] <=1 mcg/mL: Susceptible Staphylococcus aureus Oxacillin [place] >4 mcg/mL: Resistant Staphylococcus aureus Penicillin G [place] >1 mcg/mL: Resistant Staphylococcus aureus Rifampin [place] <=0.25 mcg/mL: Susceptible Staphylococcus aureus Tetracycline [place] <=0.5 mcg/mL: Susceptible Staphylococcus aureus Trimethoprim/Sulfamethoxazole [place] <=0.5/9.5 mcg/mL: Susceptible Staphylococcus aureus Vancomycin [place] 1 mcg/mL: Susceptible Staphylococcus aureus Performing Organization Address City/[facility] Code P robbie Number [facility] DEPARTMENT OF [address] [place] [address] PATHOLOGY AND GENOMIC MEDICINE [address] * Gram stain (03/29/2020 2:00 PM CDT) Gram stain Rare WBC's [facility] isolate No organisms seen BAHAI Comment: HOSPITAL Specimen Information Specimen Source: Abscess Specimen Site: Knee Specimen Abscess - Knee Performing Organization Address City/State/ZIP Code P robbie Number [facility] DEPARTMENT OF [address] [place] [address] PATHOLOGY AND GENOMIC MEDICINE [facility] [place]HAI [address] [place] [address] HOSPITAL * Anaerobic culture (03/29/2020 2:00 PM CDT) Anaerobic No anaerobic organisms [facility] culture isolate isolated. BAHAI Comment: HOSPITAL Specimen Information Specimen Source: Abscess Specimen Site: Knee Specimen Abscess - Knee Performing Organization Address City/[facility]/ZIP Code P robbie Number [facility] DEPARTMENT OF [address] [place] [address] PATHOLOGY AND GENOMIC MEDICINE [place]HAI [address] [place] [address] * Other (03/29/2020 1:55 PM CDT) Narrative Performed At Jose Walters MD 03/29/20 2:04 PM Other Date/Time: 03/29/2020 1:58 PM Performed by: Jose Walters MD Authorized by: Jose Walters M D Consent: Consent obtained: Verbal Consent given by: Patient Risks discussed: Bleeding, infectio n, pain, poor cosmetic result, nerve damage and incomplete drainage Alternatives discussed: No treatmen t, delayed treatment and observation Indications: Indications: Prepatellar septic bur sa Pre-procedure details: Skin preparation: Betadine and Chlo raPrep Preparation: Patient was prepped and draped in the usual sterile fashion Anesthesia (see MAR for exact dosages): Anesthesia method: Local infiltrati on Local anesthetic: Lidocaine 1% w/o epi Post-procedure details: Patient tolerance of procedure: Jeremiah erated well, no immediate complications Comments: I infiltrated the anterior knee with local anesthetic Utilzied a #15 blade and made a 5mm inc ision in the front of the knee I probed bursa and obtained a culture s wab from the bursa I packed the wound with 1/2 inch packin g and applied a clean dressing I sent culture for aerobic and anaerobi c cultures * CT Abdomen Pelvis W Wo Contrast (03/29/2020 9:33 AM CDT) Specimen Narrative Performed At EXAMINATION: CT ABDOMEN PELVIS W WO CONTRAST RA DIANT CLINICAL HISTORY: Hematuria unknown cause, renal stone protocol first and then urogram protocol of IV contrast on ly COMPARISON: CT chest dated March 29 020 TECHNIQUE: CT of the abdomen and pelv is with and without intravenous contrast. C T imaging was performed with iterative reconstruction techniques and/or automated exposure control to reduce ra diation dose. FINDINGS: LOWER THORAX: The visualized lung bas es are clear. There is elevation of the left hemidiaphragm. HEPATOBILIARY: There is severe hepati c steatosis. There are multiple calcified gallstones in the gallbladder neck. SPLEEN: The spleen is surgically abse nt, however there is a small remnant splenule. PANCREAS: No focal masses or ductal d ilation. ADRENALS: No adrenal nodules. KIDNEYS: No stones or hydronephrosis bilaterally. There is an exophytic nonenhancing cystic lesion in the super ior pole of the left kidney measuring 2.2 cm. This compatible with a Bosniak 2 le jenna. GI TRACT: Visualized portions of the bowel demonstrate no distention or wall thickening. PERITONEUM/RETROPERITONEUM: No free a ir or fluid. No lymphadenopathy. PELVIC ORGANS/BLADDER: Unremarkable. VASCULATURE: Abdominal aorta is nonaneu rysmal. BONES AND SOFT TISSUES: Unremarkable. IMPRESSION: 1.No etiology of hematuria was identifi ed. 2.Severe hepatic steatosis. [facility]-[id number] Dictated and approved by radiology resi dent/fellow: Aba Garcia M.D. I, Raf Gross MD, personally reviewed the images and resident's/fellow's findings and agree with the final repor t. Procedure Note [facility], Radiology Results Incoming - 03/29/2020 11:40 AM CDT EXAMINATION: CT ABDOMEN PELVIS W WO CONTRAST CLINICAL HISTORY: Hematuria unknown cause, renal stone protocol first and then urogram protocol of IV contrast only COMPARISON: CT chest dated March 29, 2020 TECHNIQUE: CT of the abdomen and pelvis with and without intravenous contrast. CT imaging was performed with iterative reconstruction techniques and/or automated exposure control to reduce radiation dose. FINDINGS: LOWER THORAX: The visualized lung bases are clear. There is elevation of the left hemidiaphragm. HEPATOBILIARY: There is severe hepatic steatosis. There are multiple calcified gallstones in the gallbladder neck. 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 PANCREAS: No focal masses or ductal dilation. ADRENALS: No adrenal nodules. KIDNEYS: No stones or hydronephrosis bilaterally. There is an exophytic nonenhancing cystic lesion in the superior pole of the left kidney measuring 2.2 cm. This compatible with a Bosniak 2 lesion. GI TRACT: Visualized portions of the bowel demonstrate no distention or wall thickening. PERITONEUM/RETROPERITONEUM: No free air or fluid. No lymphadenopathy. PELVIC ORGANS/BLADDER: Unremarkable. VASCULATURE: Abdominal aorta is nonaneurysmal. BONES AND SOFT TISSUES: Unremarkable. IMPRESSION: 1.No etiology of hematuria was identifie d. 2.Severe hepatic steatosis. [facility]-[id number] Dictated and approved by residential coordinator/fellow: Aba Garcia M.D. I, Raf Gross MD, personally reviewed the images and resident's/fellow's findings and agree with the final report. Performing Organization Address City/State/ZIP [place] [address] * Urine culture (03/29/2020 7:09 AM CDT) Only the most recent of 3 results within the time period is included. [facility] Urine culture No growth after 24 hours [facility] isolate Comment: BAHAI Specimen Information HOSPITAL Specimen Source: Urine Specimen Site: Clean catch Specimen Urine Performing Organization Address City/State/ZIP Code P robbie Number [facility] DEPARTMENT OF [address] [place] [address] PATHOLOGY AND GENOMIC MEDICINE [address] * Urinalysis screen and microscopy, with reflex to culture (03/29/2020 6:37 AM CDT) Only the most recent of 3 results within the time period is included. Specimen site Clean catch [facility] Color, UA Solange YELLOW [facility] Appearance, UA Clear Clear [facility] Specific 1.016 1.005 - 1.030 [facility] gravity, UA [facility] pH, UA 8.0 5.0 - 8.0 [facility] Protein, UA Negative Negative [facility] Glucose, UA Negative Negative [facility] Ketones, UA Negative Negative [facility] Bilirubin, UA Negative Negative [facility] Blood, UA Moderate (A) Negative [facility] Nitrite, UA Negative NEGATIVE [facility] Urobilinogen, 4.0 <2.0 E.U./dL [facility] UA [facility] Leukocyte Negative Negative [facility] esterase, UA [facility] WBC, UA 7 (H) 0 - 5 /Hpf [facility] RBC, UA 155 (H) 0 - 5 /HPF [facility] Bacteria, UA None seen None seen [facility] Yeast, UA None seen None Seen [facility] Yeast with None seen [facility] pseudohyphae, [facility] Specimen Urine Performing Organization Address City/State/[facility] [place] [address] PATHOLOGY AND GENOMIC MEDICINE [address] * Fibrinogen (03/29/2020 4:52 AM CDT) [facility] Fibrinogen 407.0Comment: The reference 200.0 - 450.0 mg/d L [facility] range has changed starting BAHAI 01/31/2010 @12:00pm [facility] Specimen Blood Performing Organization Address City/State/[facility] [place] [address] PATHOLOGY AND GENOMIC MEDICINE [address] * D-dimer (03/29/2020 4:52 AM CDT) D-dimer 3.97 (H) 0.00 - 0.40 ug/mL [facility] Comment: FEU [facility]HAI When combined with low [place] clinical probability, D-dimer HOSPITAL results of less than 0.5 ug/ml FEU have a good negative predictive value in excluding PE or DVT. For D-dimer results greater than 0.5 ug/ml FEU further testing is indicated if PE or DVT is suspected clinically. Elevated D-dimer results have been reported in DVT, PE, and DIC cases and may indicate the presence of a clot. D-dimer results may be elevated due to old age, , inflammatory diseases, trauma, post-operative states, sepsis, and malignancies. Specimen Blood Performing Organization Address City/State/ZIP Code [place] [address] PATHOLOGY AND GENOMIC MEDICINE [address] * C-reactive protein (03/29/2020 4:52 AM CDT) Only the most recent of 2 results within the time period is included. CRP 7.32 (H) 0.00 - 1.00 mg/dL [facility] Specimen Blood Performing Organization Address City/State/ZIP Code [place] [address] PATHOLOGY AND GENOMIC MEDICINE [address] * Triglycerides (03/29/2020 4:52 AM CDT) Triglycerides 69 0 - 149 mg/dL [facility] Specimen Blood Performing Organization Address City/State/ZIP Code [place] [address] PATHOLOGY AND GENOMIC MEDICINE [address] * LDH (03/29/2020 4:52 AM CDT) LDH 312 300 - 600 U/L [facility] Specimen Blood Performing Organization Address City/State/ZIP Code [place] [address] PATHOLOGY AND GENOMIC MEDICINE [address] * Ferritin level (03/29/2020 4:52 AM CDT) Ferritin level 593 (H) 18 - 464 ng/mL [facility] Specimen Blood Performing Organization Address City/State/ZIP Code [place] [address] PATHOLOGY AND GENOMIC MEDICINE [address] * Comprehensive metabolic panel (03/29/2020 4:52 AM CDT) Only the most recent of 3 results within the time period is included. Sodium 131 (L) 135 - 148 mEq/L [facility] Potassium 3.8 3.5 - 5.0 mEq/L [facility] Chloride 93 (L) 99 - 109 mEq/L [facility] CO2 26 24 - 31 mEq/L [facility] Anion gap 12@ANIO 7 - 15 mEq/L [facility] BUN 10 8 - 24 mg/dL [facility] Creatinine 0.80 0.70 - 1.20 mg/dL [facility] Glucose 93 65 - 99 mg/dL [facility] Calcium 7.9 (L) 8.6 - 10.6 mg/dL [facility] Protein 6.9 6.3 - 8.2 g/dL [facility] Albumin 3.7 3.5 - 5.0 g/dL [facility] A/G ratio 1.16 0.70 - 3.80 [facility] Alkaline 58 30 - 115 U/L [facility] phosphatase [facility] AST 62 (H) 15 - 46 U/L [facility] ALT 47 10 - 55 U/L [facility] Total bilirubin 3.3 (H) 0.2 - 1.2 mg/dL [facility] Specimen Blood Performing Organization Address City/[facility]/ZIP [place] [address] PATHOLOGY AND GENOMIC MEDICINE [address] * Type and screen (03/29/2020 4:45 AM CDT) ABO grouping O [facility] Rh type POS [facility] Antibody screen NEG [facility] (gel) [facility] Specimen Blood Performing Organization Address City/[facility] P robbie Number [place] [phone] PATHOLOGY AND GENOMIC MEDICINE [address] * CT Chest Wo Contrast (03/29/2020 2:02 AM CDT) Specimen Narrative Performed At EXAMINATION: CT CHEST WO CONTRAST [facility] CLINICAL HISTORY: 64 years Male PUI TECHNIQUE: Multiple axial images of t he chest were obtained without intravenous contrast. Sagittal and sophia nal computerized reformatted images were also obtained. CT imaging was performed with iterative reconstruction techniques and/or automated exposure control to reduce radiation do se. COMPARISON: None. IMPRESSION: Lungs and airways: No acute airspace di sease or suspicious pulmonary nodules. Pleura: No pleural effusion or pneumoth orax. Mediastinum and lymph nodes: No lymphad enopathy. Cardiovascular: The heart size is gordon l. No pericardial effusion. The thoracic aorta is normal in caliber. Upper abdomen: There is fatty infiltrat ion of the liver. There is a calcified gallstones are present within the nondi stended gallbladder. No pericholecystic inflammatory changes are identified. Bones: No suspicious osseous lesions. Other: None. SUMMARY: 1.No acute abnormality identified in th e abdomen or pelvis. [facility]-[id number] Procedure Note Interface, Radiology Results Incoming - 03/29/2020 2:16 AM CDT EXAMINATION: CT CHEST WO CONTRAST CLINICAL HISTORY: 64 years Male PUI TECHNIQUE: Multiple axial images of the chest were obtained without intravenous contrast. Sagittal and coronal computerized reformatted images were also obtained. CT imaging was performed with iterative reconstruction techniques and/or automated exposure control to reduce radiation dose. COMPARISON: None. IMPRESSION: Lungs and airways: No acute airspace disease or suspicious pulmonary nodules. Pleura: No pleural effusion or pneumothorax. Mediastinum and lymph nodes: No lymphadenopathy. Cardiovascular: The heart size is normal. No pericardial effusion. The thoracic aorta is normal in caliber. Upper abdomen: There is fatty infiltration of the liver. There is a calcified gallstones are present within the nondistended gallbladder. No pericholecystic inflammatory changes are identified. Bones: No suspicious osseous lesions. Other: None. SUMMARY: 1.No acute abnormality identified in the abdomen or pelvis. [facility]-[id number] Performing Organization Address City/State/ZIP Code P robbie Number [facility] [address] [place] [address] * Arterial blood gas (03/29/2020 12:15 AM CDT) pH, arterial 7.45 7.35 - 7.45 Units [facility] pCO2, arterial 40 35 - 45 mmHg [facility] pO2, arterial 67 (L) 83 - 108 mmHg [facility] Bicarbonate, 27.8 21.0 - 28.0 mEq/L [facility] Base excess, 4.0 (H) -0.2 - 0.3 mEq/L [facility] O2 saturation, 94 (L) 95 - 98 % [facility] FiO2 21.0 [facility] Total CO2 25 mEq/L [facility] O2 content 16.4 15.0 - 23.0 VOL % [facility] Specimen Blood Performing Organization Address City/State/ZIP Code P robbie Number [facility] DEPARTMENT [address] [place] [address] PATHOLOGY AND GENOMIC MEDICINE [facility] [id number] [place] [address] [address] [place] [address] [facility] * Respiratory pathogen panel (03/28/2020 11:09 PM CDT) Adenovirus PCR Not Detected [facility] Comment: BAHAI Specimen Information HOSPITAL Specimen Source: Nares Specimen Site: Left Coronavirus Not Detected [facility] HKU1 PCR [facility] Coronavirus Not Detected [facility] NL63 PCR [facility] Coronavirus Not Detected [facility] 229E PCR [facility] Coronavirus Not Detected [facility] OC43 PCR [facility] Human Not Detected [facility] metapneumovirus [facility] Not Detected [facility] rhinovirus/ente [facility]I rovirus PCR HOSPITAL Influenza A PCR Not Detected [facility] Influenza A/H1 Not Reported [facility] PCR [facility] Influenza A/H3 Not Reported [facility] PCR [facility] Influenza Not Reported [facility] A/H1-2009 PCR [facility] Influenza B PCR Not Detected [facility] Parainfluenza Not Detected [facility] virus 1 PCR [facility] Parainfluenza Not Detected [facility] virus 2 PCR [facility] Parainfluenza Not Detected [facility] virus 3 PCR [facility] Parainfluenza Not Detected [facility] virus 4 PCR [facility] Respiratory Not Detected [facility] syncytial virus BAHAI PCR [facility] Bordetella Not Detected [facility] pertussis PCR [facility] Bordetella Not Detected [facility] parapertussis [facility] Chlamydia Not Detected [facility] pneumoniae PCR [facility] Mycoplasma Not Detected [facility] pneumoniae PCR [facility] Influenza A no Not Reported [facility] sub type [facility] Specimen Nares - Left Performing Organization Address City/State/ZIP Code P robbie Number [facility] DEPARTMENT OF [address] [place] [address] PATHOLOGY AND GENOMIC MEDICINE [facility] [place] [address] [place] [id number] [facility] * Lactic acid level, SEPSIS - Now and repeat 2x every 3 hours (03/28/2020 1:45 PM CDT) Only the most recent of 4 results within the time period is included. Lactic acid 1.7 0.5 - 2.2 mmol/L [facility] Specimen Blood Performing Organization Address City/State/ZIP Code P robbie Number [facility] [address] [facility] [address] [place] [address] PATHOLOGY AND GENOMIC MEDICINE [facility] [address] [facility] [address] [place] [address] [facility] * Troponin (03/28/2020 9:28 AM CDT) Only the most recent of 5 results within the time period is included. Troponin <0.006 0.000 - 0.040 ng/mL [facility] Comment: BAHAI In patients suspected of [place] having a myocardial HOSPITAL infarction, along with all other appropriate clinical measures and actions including ECG and other diagnostics as appropriate, measure Ultra TnI at 0 hrs and at 3 hrs. Myocardial infarction VERY LIKELY The 0 hr TnI level is > 0.10 ng/mL Myocardial infarction LIKELY The 0 hr TnI level is > 0.04 ng/mL and 3 hr level is increased or decreased by at least 0.020 ng/mL Myocardial infarction VERY UNLIKELY Both the 0 hr and 3 hr TnI levels <= 0.04 ng/mL(within normal limits) OR 0 hr is > 0.04 ng/mL and 3 hr is increased OR decreased by less than 0.020 ng/mL Specimen Blood Performing Organization Address City/State/ZIP Code [place] [address] [facility]. [address] [place] [address] PATHOLOGY AND GENOMIC MEDICINE [facility] [place] [address] [facility] [address] [place] [address] [facility] * Blood culture, aerobic & anaerobic (03/28/2020 6:15 AM CDT) Only the most recent of 4 results within the time period is included. Blood culture No growth after 5 days of [facility] isolate incubation. [facility]I Comment: HOSPITAL Specimen Information Specimen Source: Blood Specimen Site: Forearm, left Specimen Blood - Forearm, left Performing Organization Address City/[facility] Code P robbie Number [facility] DEPARTMENT OF [address] [place] [address] PATHOLOGY AND GENOMIC MEDICINE [facility] [place] [address] [place], [place] [id number] [place] [address] * ECG ED Preliminary Interpretation - Not an Order (03/28/2020 6:05 AM CDT) Only the most recent of 2 results within the time period is included. Narrative Performed At Tiburcio Dumont MD 03/29/20 7:38 AM ECG ED Preliminary Interpretation - Not an Order Performed by: Tiburcio Dumont MD Authorized by: Tiburcio Dumont M D ECG reviewed by ED Physician in the abs ence of a treatment coordinator: yes Interpretation: Interpretation: non-specific Rate: ECG rate: 88 ECG rate assessment: normal Rhythm: Rhythm: sinus rhythm Ectopy: Ectopy: none QRS: QRS axis: Normal QRS intervals: Normal Conduction: Conduction: normal ST segments: ST segments: Normal T waves: T waves: normal Other findings: Other findings: prolonged qTc interva l * CRITICAL CARE (03/28/2020 6:05 AM CDT) Narrative Performed At Tiburcio Dumont MD 03/29/20 7:38 AM Critical Care Performed by: Tiburcio Dumont MD Authorized by: Tiburcio Dumont M D Critical care provider statement: Critical care time (minutes): 35 Critical care was necessary to treat or prevent imminent or life-threatening deterioration of the f ollowing conditions: Sepsis and toxidrome Critical care was time spent personal ly by me on the following activities: Ordering and performing t reatments and interventions, ordering and review of laboratory studi es, ordering and review of radiographic studies, pulse oximetry, r e-evaluation of patient's condition, review of old charts, develo pment of treatment plan with patient or surrogate, discussions with consultants, discussions with primary provider, evaluation of patient 's response to treatment, examination of patient, interpretation of cardiac output measurements and obtaining history from patient or surro gate * ECG 12 lead (03/28/2020 5:32 AM CDT) Only the most recent of 3 results within the time period is included. Ventricular 88 [facility] rate Atrial rate 88 [facility] SC interval 132 [facility] QRSD interval 76 [facility] QT interval 406 [facility] QTC interval 491 [facility] P axis 1 35 [facility] QRS axis 1 3 [facility] T wave axis 37 [facility] EKG impression ^^^ Poor data quality, [facility] M[facility] interpretation may be adversely affected-Normal sinus rhythm-Prolonged QT-Abnormal ECG-In automated comparison with ECG of 27-MAR-2020 17:46,-No significant change was found- Specimen Narrative Performed At This result has an attachment that is n ot available. Performing Organization Address City/[facility]/ZIP Code P robbie Number [facility] MUSE [address] [place] [phone] * XR Knee 3 Vw Left (03/27/2020 6:48 PM CDT) Specimen Narrative Performed At EXAMINATION: XR KNEE 3 VW LEFT [facility] CLINICAL HISTORY: trauma COMPARISON: None. IMPRESSION: Single crosstable lateral film demonstr ates no definite fracture or effusion. [facility]-[id number] Procedure Note Hm Interface, Radiology Results Incoming - 03/27/2020 6:56 PM CDT EXAMINATION: XR KNEE 3 VW LEFT CLINICAL HISTORY: trauma COMPARISON: None. IMPRESSION: Single crosstable lateral film demonstrates no definite fracture or effusion. [id number] Performing Organization Address [facility]/ZIP Code P robbie Number [facility] [address] [place] [phone] * Sedimentation rate (03/27/2020 5:56 PM CDT) Sedimentation 13 (H) 1 - 10 mm/hr PHILLIPS rate [facility] Specimen Blood Performing Organization Address City/State/ZIP [place] [address] PATHOLOGY AND GENOMIC MEDICINE [address] * Alcohol level, blood (03/27/2020 5:56 PM CDT) Only the most recent of 2 results within the time period is included. Alcohol 365.7 mg/dl [facility] Alcohol percent 0.37 (H) 0.00 - 0.08 % [facility] Comment: [facility]HAI Normal [place] None Detected HOSPITAL Legal Intoxication in [place] 80 mg/dL (0.08%) - Whole Blood Toxic Concentration 200 mg/dL (0.2%) Potentially Fatal 350 - 500 mg/dL (0.35 - 0.5%) Specimen Blood Performing Organization Address City/[facility] [place] [address] PATHOLOGY AND GENOMIC MEDICINE [address] * Urine drugs of abuse screen (03/04/2020 8:46 AM CDT) Amphetamine Negative [facility] screen, urine [facility] Barbiturate Negative [facility] screen, urine [facility] Benzodiazepine Positive (A) [facility] screen, urine [facility] Cocaine screen, Negative [facility] urine [facility] Methadone Negative [facility] metabolite BAHAI (EDDP), urine [facility] Opiates screen, Negative [facility] urine [facility] Oxycodone Negative [facility] screen, urine [facility] Phencyclidine Negative [facility] screen, urine [facility] Tricyclic Negative [facility] screen, urine [facility] Cannabinoid Negative [facility] screen, urine Comment: [facility] Drug screen minimum [place] concentration of detectability HOSPITAL Amphetamines 1000 ng/mL Barbiturates 200 ng/mL Benzodiazepines 300 ng/mL Cocaine 300 ng/mL Methadone 300 ng/mL Opiates 300 ng/mL Oxycodone 300 ng/mL Phencyclidine 25 ng/mL Cannabinoids 50 ng/mL Tricyclics 1000 ng/mL Results are from screening tests and should only be used for medical evaluation. Drug testing for legal purposes requires definitive (or confirmatory) testing methods, which are available upon request. Contact the laboratory if definitive testing is required. Specimen Urine - Urine, clean catch Performing Organization Address City/State/ZIP [place] [address] PATHOLOGY AND GENOMIC MEDICINE [address] * Acetaminophen level (03/04/2020 7:52 AM CDT) Acetaminophen <15.0 10.0 - 30.0 ug/mL [facility] Specimen Blood Performing Organization Address [facility]/State/[facility] [place] [address] PATHOLOGY AND GENOMIC MEDICINE [address] * Salicylate level (03/04/2020 7:52 AM CDT) Salicylate <0.3 (L) 5.0 - 30.0 mg/dL WINSTED Comment: BAHAI Therapeutic Range: [place] 5 - 30 mg/dL [facility] Specimen Blood Performing Organization Address [facility] [place] [address] PATHOLOGY AND GENOMIC MEDICINE [address] after 07/11/2019 Advance Directives For more information, please contact: [phone] 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
--- OUTSIDE RECORDS SUMMARY | 2020-07-11 04:09 | XMS REPORT | Clinical Summary ---
Author Author ADINA [facility] Address Unknown Phone Unavailable Care Team Providers Care Outsole Handler Name Role Phone Pcp, No PCP Unavailable Allergies No Known Allergies Medications End Date Status Medication Sig Dispensed Refills Start Date Active levothyroxine (SYNTHROID, Take 88 mcg 0 LEVOTHROID) 88 MCG tablet by mouth Every morning on an empty stomach. 07/26/2020 Active multivitamins (FOLTX, Take 1 tablet 30 tablet 0 FOLBIC) 2-1.13-25 mg Tab by mouth 0 tablet daily for 60 days. 06/04/2020 chlordiazePOXIDE Take 1 30 capsule 0 (LIBRIUM) 25 MG capsule capsule (25 0 mg total) by mouth 3 (three) times daily for 2 days, THEN 1 capsule (25 mg total) 2 (two) times daily for 3 days, THEN 1 capsule (25 mg total) daily for 3 days. Max Daily Amount: 75 mg. Active Problems Problem Noted Date Alcohol withdrawal syndrome with complication 2019 Elevated LFTs 05/26/2020 Hypomagnesemia 05/26/2020 Hypertension 05/26/2020 Hypothyroidism 05/26/2020 Encounters Care Team Description Date Type Specialty Norris Salmon MD Li, Ya, MD Alcohol withdrawal syndrome with complic ation (HCC) (Primary Dx); Tremors of nervous system 05/26/2020 Emergency General Internal Me dicine - 05/27/2020 05/26/2020 Orders Only General Internal Me dicine 05/26/2020 Travel Lyndsay Villa MD History of alcohol abuse (Primary Dx); Fall, initial encounter; Hypokalemia; Alcohol withdrawal syndrome with complication (HCC) 03/16/2020 Emergency Emergency Medicine 03/16/2020 Orders Only General Internal Me dicine 03/16/2020 Travel after 07/11/2019 Social History Date Tobacco Use Types Packs/Day Years Used Never Smoker Smokeless Tobacco: Never Used Drinks/Week oz/Week Comments Alcohol Use 10 Standard drinks or equivalent 10.0 1/2 a "handle" per da y Yes Sex Assigned at Date Recorded Not on file Last Filed Vital Signs Reading Time Taken Comments Vital Sign 150/85 05/27/2020 8:15 AM CDT Blood Pressure 80 05/27/2020 8:15 AM CDT Pulse 35.9 C (96.7 F) 05/27/2020 8:15 AM CDT Temperature 18 05/27/2020 8:15 AM CDT Respiratory Rate 94% 05/27/2020 8:15 AM CDT Oxygen Saturation - - Inhaled Oxygen Concentration 105.5 kg (232 lb 9.4 oz) 05/27/2020 9:00 AM CDT Weight 182.9 cm (6') 05/26/2020 3:55 AM CDT Height 31.54 05/26/2020 3:55 AM CDT Body Mass Index Plan of Treatment Health Maintenance Due Date Last Done Comments COLON CANCER SCREENING 1955 COLONOSCOPY INFLUENZA VACCINE (#1) 2020 06/26/2017 LIPID PANEL 05/27/2023 05/27/2020 Procedures Comments Procedure Name Priority Date/Time Associated Diag nosis RHYTHM STRIP - SCAN 05/31/2020 9:21 AM CDT REPORT OF PROCEDURE - 05/31/2020 ENDOSCOPY SCAN 9:21 AM CDT VITAMIN B12 Routine 05/27/2020 3:34 AM CDT LIPID PANEL Routine 05/27/2020 3:34 AM CDT COMPREHENSIVE METABOLIC Routine 05/27/2020 PANEL 3:34 AM CDT TSH/FREE T4 IF INDICATED Routine 05/26/2020 3:19 PM CDT US ABDOMEN LIMITED STAT 05/26/2020 7:50 AM CDT SARS-COV2/RT-PCR ([facility] & STAT 05/26/2020 REF LABS) 6:21 AM CDT URINALYSIS W/ REFLEX STAT 05/26/2020 URINE CULTURE 5:35 AM CDT RAPID DRUG SCREEN, URINE STAT 05/26/2020 5:35 AM CDT ECG 12-LEAD Routine 05/26/2020 4:38 AM CDT Procedure Note - Interface, External Ris In - 05/26/2020 4:41 AM CDT Ventricula r Rate 86 BPM Atrial Rate 86 BPM P-R Interval 144 ms QRS Duration 90 ms Q-T Interval 424 ms QTC Calculatio n(Bazett) 507 ms P Victoria 49 degrees R Victoria 13 degrees T Victoria 15 degrees Normal sinus rhythm Prolonged QT Abnormal ECG When compared with ECG of 0 15:45, No significan t change was found ECG 12-LEAD STAT 05/26/2020 4:38 AM CDT CBC W/PLT COUNT & AUTO STAT 05/26/2020 DIFFERENTIAL 4:24 AM CDT MAGNESIUM STAT 05/26/2020 4:24 AM CDT LIPASE STAT 05/26/2020 4:24 AM CDT HEPATIC FUNCTION PANEL STAT 05/26/2020 4:24 AM CDT ETHANOL STAT 05/26/2020 4:24 AM CDT BASIC METABOLIC PANEL (7) STAT 05/26/2020 4:24 AM CDT CBC W/PLT COUNT & AUTO STAT 05/26/2020 DIFFERENTIAL 4:24 AM CDT XR CHEST 1 VIEW STAT 05/26/2020 PORTABLE/BEDSIDE 4:23 AM CDT REPORT OF PROCEDURE - 03/22/2020 ENDOSCOPY SCAN 10:52 AM CDT ECG 12-LEAD Routine 03/16/2020 3:45 PM CDT Procedure Note - Interface, External Ris In - 03/16/2020 3:47 PM CDT Ventricula r Rate 83 BPM Atrial Rate 83 BPM P-R Interval 134 ms QRS Duration 80 ms Q-T Interval 424 ms QTC Calculatio n(Bazett) 498 ms P Victoria 41 degrees R Victoria 2 degrees T Victoria 26 degrees Normal sinus rhythm Prolonged QT Abnormal ECG No previous ECGs available ECG 12-LEAD STAT 03/16/2020 3:45 PM CDT CBC W/PLT COUNT & AUTO STAT 03/16/2020 DIFFERENTIAL 3:12 PM CDT ETHANOL STAT 03/16/2020 3:12 PM CDT COMPREHENSIVE METABOLIC STAT 03/16/2020 PANEL 3:12 PM CDT CBC W/PLT COUNT & AUTO STAT 03/16/2020 DIFFERENTIAL 3:[address] BRAIN WITHOUT IV STAT 03/16/2020 CONTRAST 2:59 PM CDT after 07/11/2019 Results * RHYTHM STRIP - SCAN (05/31/2020 9:21 AM CDT) Narrative Performed At This result has an attachment that is n ot available. * EKG-SCANNED (05/31/2020 9:21 AM CDT) Only the most recent of 2 results within the time period is included. Narrative Performed At This result has an attachment that is n ot available. * Vitamin B12 (05/27/2020 3:34 AM CDT) Vitamin B12 235 213 - 816 pg/mL [facility] Specimen Blood - Entire right upper arm (body structure) Narrative Performed At Geochemist ID - SHAQUILLE Mazariegos [facility] Performing Organization Address City/State/Zipcode Ph one Number [place] [address] [facility] * Lipid panel (05/27/2020 3:34 AM CDT) Triglycerides 70 mg/dL [facility] Cholesterol 139 mg/dL [facility] HDL 65 mg/dL [facility] LDL Calculated 60 mg/dL [facility] Specimen Blood - Entire right upper arm (body structure) Narrative Performed At Triglyceride Reference Range: [facility] Low Risk <150 Borderline 150-199 High Risk 200-499 Very High Risk >=500 Cholesterol Reference Range: Low Risk <200 Borderline 200-239 High Risk >240 HDL Cholesterol Reference Range: Low Risk >=60 High Risk <40 LDL Cholesterol Reference Range: Optimal <100 Near Optimal 100-129 Borderline 130-159 High 160-189 Very High >=190 Geochemist ID - Tamar T Specimen slightly icteric Performing Organization Address [facility] one Number [facility] [address] [facility] [address] * Comprehensive metabolic panel (05/27/2020 3:34 AM CDT) Only the most recent of 2 results within the time period is included. Protein, Total 6.7 6.0 - 8.5 gm/dL [facility] Albumin 3.7 3.5 - 5.0 g/dL [facility] Alkaline 54 30 - 115 U/L [facility] Total Bilirubin 4.3 (H) 0.1 - 1.2 mg/dL [facility] Sodium 137 135 - 148 meq/L [facility] Potassium 3.3 (L) 3.6 - 5.5 meq/L [facility] Chloride 100 98 - 106 meq/L [facility] CO2 26 20 - 29 meq/L [facility] BUN 12 10 - 26 mg/dL [facility] Creatinine 0.78 0.50 - 1.20 mg/dL [facility] Glucose 94 70 - 110 mg/dL [facility] Calcium 7.7 (L) 8.5 - 10.5 mg/dL [facility] AST 251 (H) 5 - 40 U/L [facility] ALT 191 (H) 5 - 50 U/L [facility] EGFR 101Comment: ESTIMATED GFR IS mL/min/1.73 sq m [facility] NOT ACCURATE CREATININE LABORATORY CLEARANCE IN PREDICTING GLOMERULAR FILTRATION RATE. ESTIMATED GFR IS NOT APPLICABLE FOR DIALYSIS PATIENTS. Specimen Blood - Entire right upper arm (body structure) Narrative Performed At Geochemist ID - Tamar T [facility] Specimen slightly icteric Performing Organization Address [facility] one Number [facility] [address] [facility] [address] * TSH/Free T4 If Indicated (05/26/2020 3:19 PM CDT) TSH 1.608 0.350 - 5.500 uIU/mL [facility] Specimen Blood Narrative Performed At Geochemist ID - DAVID [facility] Performing Organization Address City/State/Zipcode Ph one Number [facility] [place] [address] [facility] [address] [place], [place] [address] * US abdomen limited (05/26/2020 7:50 AM CDT) Specimen Narrative Performed At FINAL REPORT [facility] TECHNIQUE: Grayscale ultrasound of the right abdomen. INDICATION: Elevated LFT. COMPARISON: None. FINDINGS: MIDLINE VASCULATURE: The visualized inf erior vena cava is patent. Portal vein is patent and measures 1 cm in diameter. The maximum visualized aortic diameter is 2.5 cm. LIVER: Markedly echogenic liver. Liver measures 16.6 cm in craniocaudal dimension.. No focal lesio ns. BILIARY: Gallbladder: Cholelithiasis. No gallbla dder wall thickening, pericholecystic fluid, or distention. N egative sonographic Talley sign. Common bile duct measures 0.4 cm, withi n normal limits. No intrahepatic biliary ductal dilatation. PANCREAS: Incompletely visualized due t o overlying bowel gas. PERITONEUM: No free fluid. RIGHT KIDNEY: The right kidney is gordon l in size and measures 11.1 cm in length. No hydronephrosis. No sonogr aphically evident solid mass lesion. IMPRESSION: Hepatic steatosis and/or diffuse hepato cellular disease. Cholelithiasis without sonographic evid ence of acute cholecystitis.. Signed: Keiko Daniel MD Report Verified Date/Time: 05/26/2020 07:55:09 Reading Location: [facility] Reading Room - [place] [address] Procedure Note Interface, External Ris In - 05/26/2020 7:58 AM CDT FINAL REPORT TECHNIQUE: Grayscale ultrasound of the right abdomen. INDICATION: Elevated LFT. COMPARISON: None. FINDINGS: MIDLINE VASCULATURE: The visualized inferior vena cava is patent. Portal vein is patent and measures 1 cm in diameter. The maximum visualized aortic diameter is 2.5 cm. LIVER: Markedly echogenic liver. Liver measures 16.6 cm in craniocaudal dimension.. No focal lesions. BILIARY: Gallbladder: Cholelithiasis. No gallbladder wall thickening, pericholecystic fluid, or distention. Negative sonographic Talley sign. Common bile duct measures 0.4 cm, within normal limits. No intrahepatic biliary ductal dilatation. PANCREAS: Incompletely visualized due to overlying bowel gas. PERITONEUM: No free fluid. RIGHT KIDNEY: The right kidney is normal in size and measures 11.1 cm in length. No hydronephrosis. No sonographically evident solid mass lesion. IMPRESSION: Hepatic steatosis and/or diffuse hepatocellular disease. Cholelithiasis without sonographic evidence of acute cholecystitis.. Signed: Keiko Daniel MD Report Verified Date/Time: 05/26/2020 07:55:09 Reading Location: [facility] Diagnostic Imaging Reading Room - [place] [address] Performing Organization Address City/State/Zipcode Ph one Number [facility] * SARS-CoV2/RT-PCR (Asymptomatic ONLY) (05/26/2020 6:21 AM CDT) SARS-COV2/RT-PC Negative Not Detected, [facility] R Negative, See [facility] external report for MEDICAL CENTER linked test SARS-COV-2 [facility] PERFORMING LAB [facility] Specimen Other - Nasopharyngeal wall structure (body structure) Narrative Performed At Negative result for this test determine s that SARS-CoV-2 RNA was not present in [facility] the specimen above the Limit of Detecti on (LOD). However, Negative results do [facility] not preclude SARS-CoV-2 infection and s hould not be used as the sole basis for treatment or patient management decisio ns. Negative results must be combined with clinical observations, patient his tory, and epidemiological information. A false negative result may occur if a sp ecimen is improperly collected, transported or handled. A false negat freda result should be considered if patient's recent exposures or clinical presentation indicate that COVID-19 (SARS-CoV-2) is likely and diagnostic t ests for other causes of illness are negative. Re-testing should be consid ered in cases of suspected false negatives. The limit of detection for this assay i s 800 copies/mL. This SARS CoV-2 test is a real-time RT- PCR test intended for the qualitative detection of nucleic acid from SARS-CoV -2 in a nasopharyngeal swab specimen collected from individuals suspected of COVID-19 by their healthcare provider. This test has not been Food and Drug Ad ministration (FDA) cleared or approved. This is a modified version of an appr asa Emergency Use Authorization (EUA) and is in the process of review by the FDA. Once authorized by the FDA, the issued EUA will be effective until the declaration that circumstances exist justifying the authorization of the megan rgency use of in vitro diagnostic tests for detection and/or diagnosis of COVID -19 is terminated under Section 564(b)(2) of the Act or the EUA is revoked under Section 564(g) of the Act. Fact Sheet for Healthcare Providers: https://www.[employer]/sites/default/files/product/documents/Fact_Sheet_HC_Provi zxhu_Kjgs_RHXM-MmD-6.pdf Fact Sheet for Healthcare Patients: https://www.[employer]/sites/default/files/product/documents/Fact_Sheet_Patients _Wvfd_LOLA-TiU-0.pdf Performing Laboratory: [address] [place] [address] Performing Organization Address City/State/Zipcode Ph one Number [place] [address] [facility] * Urinalysis w/Microscopic + Reflex to Culture (05/26/2020 5:35 AM CDT) Color, UA Yellow [facility] Clarity, UA Clear [facility] Specific 1.015 1.001 - 1.035 [facility] [place] pH, UA 7.0 5.0 - 8.0 [facility] Protein, UA Negative Negative [facility] Glucose, UA Negative Negative [facility] Ketones, UA Trace (A) Negative [facility] Bilirubin, UA Negative Negative [facility] Blood, UA Negative Negative [facility] Nitrite, UA Negative Negative [facility] Leukocytes, UA Negative Negative [facility] Urobilinogen, 0.2 0.2 - 1.0 mg/dL [facility]A [facility] Bacteria, UA None Seen [facility] RBC, UA None Seen /HPF [facility] WBC, UA None Seen /HPF [facility] SQUAMOUS None Seen /HPF [facility] EP[facility]HELIAL [facility] Specimen Source [facility] Specimen Urine - Urine specimen collection, clean catch (procedure) Performing Organization Address [facility] one Number [facility] [place] [address] [facility] [address] * Rapid drug screen, urine (05/26/2020 5:35 AM CDT) Barbiturate Negative Negative [facility] Benzodiazepine Positive (A) Negative [facility] Cocaine Negative Negative [facility] (Metab.) Screen LABOR[facility] Opiate Screen Negative Negative [facility] Cannabinoid Negative Negative [facility] Amph/Methamph Negative Negative [facility] Phencyclidine Negative Negative [facility] pH, UA 7.0 5.0 - 8.0 [facility] Specimen Urine Narrative Performed At [facility] Cocaine 300 n g/mL Cannabinoid 50 ng/ mL Benzodiazepine 200 ng/mL Barbiturate 200 ng/ mL Phencyclidine 25 ng/m L Opiate 300 n g/mL Amphetamine/ 1000 ng/m L Methamphetamine This assay provides an unconfirmed qual itative test result for the clinical management of patients in emergency sit uations. Chain of custody not maintained. Some xeio-ile-kbetuty medications, as w ell as adulterants, may cause inaccurate results. Clinical correlation should be applied. A more comprehensive drug screen or confirmation of a detected dr weiss may be performed upon request. Geochemist ID - ELIEL Performing Organization Address [facility] one Number [facility] [place] [address] [facility] [place] [address] * ECG 12 lead (05/26/2020 4:38 AM CDT) Only the most recent of 2 results within the time period is included. Specimen Narrative Performed At [facility] Ventricular Rate 86 BPM Atrial Rate 86 BPM P-R Interval 144 ms QRS Duration 90 ms Q-T Interval 424 ms QTC Calculation(Bazett) 507 ms P Victoria 49 degrees R Victoria 13 degrees T Victoria 15 degrees Normal sinus rhythm Prolonged QT Abnormal ECG When compared with ECG of 16-MAR-2020 1 5:45, No significant change was found Confirmed by Rafael Patel ([id number]) on 06/17/2020 4:48:15 PM Procedure Note Interface, External Ris In - 06/17/2020 4:48 PM CDT Ventricular Rate 86 BPM Atrial Rate 86 BPM P-R Interval 144 ms QRS Duration 90 ms Q-T Interval 424 ms QTC Calculation(Bazett) 507 ms P Victoria 49 degrees R Victoria 13 degrees T Victoria 15 degrees Normal sinus rhythm Prolonged QT Abnormal ECG When compared with ECG of 16-MAR-2020 15:45, No significant change was found Confirmed by Rafael Patel ([id number]) on 06/17/2020 4:48:15 PM Performing Organization Address City/State/[facility] Ph one Number [facility] * CBC with platelet count + automated diff (05/26/2020 4:24 AM CDT) Only the most recent of 2 results within the time period is included. WBC 9.6 4.0 - 10.0 K/L [facility] RBC 4.13 (L) 4.20 - 5.80 M/L [facility] Hemoglobin 15.1 13.0 - 16.8 GM/DL [facility] Hematocrit 41.2 36.0 - 50.0 % [facility] MCV 99.8 (H) 82.0 - 99.0 fL [facility] MCH 36.6 (H) 27.0 - 33.0 pg [facility] MCHC 36.7 (H) 32.0 - 36.0 GM/DL [facility] RDW 15.9 (H) 12.0 - 15.0 % [facility] Platelets 332 150 - 430 K/CU MM [facility] MPV 10.0 6.0 - 11.5 fL [facility] nRBC 0 0 - 0 /100 WBC [facility] % Neutros 45 % [facility] % Lymphs 38 % [facility] % Monos 16 % [facility] % Eos 1 % [facility] % Baso 1 % [facility] # Neutros 4.32 1.80 - 8.00 K/L [facility] # Lymphs 3.62 1.48 - 4.50 K/L [facility] # Monos 1.50 (H) 0.00 - 1.30 K/L [facility] # Eos 0.12 0.00 - 0.50 K/L [facility] # Baso 0.05 0.00 - 0.20 K/L [facility] Immature 0 0 - 0 % [facility] Granulocytes-Re [facility] lative Specimen Blood Performing Organization Address [facility] one Number [facility] [place] [address] [facility] [place] [address] [place] [address] * Magnesium (05/26/2020 4:24 AM CDT) Magnesium 1.1 (L) 1.5 - 3.0 mg/dL [facility] Specimen Blood Narrative Performed At [facility]ochemist [facility] Performing Organization Address [facility] one Number [facility] [place] [address] [facility] [place] [address] * Lipase (05/26/2020 4:24 AM CDT) Lipase 14 6 - 51 U/L [facility] Specimen Blood Narrative Performed At Geochemist [email or web address] [facility] Specimen slightly icteric Performing Organization Address [facility] one Number [facility] [place] [address] [facility] [place] [address] * Ethanol (05/26/2020 4:24 AM CDT) Only the most recent of 2 results within the time period is included. Ethanol Lvl 25 (H) <=10 mg/dL [facility] Specimen Blood Narrative Performed At [email or web address] [email or web address] [facility] Performing Organization Address [facility] one Number [facility] [place] [address] [facility] [place] [address] * Hepatic function panel (05/26/2020 4:24 AM CDT) Protein, Total 8.6 (H) 6.0 - 8.5 gm/dL [facility] Albumin 4.5 3.5 - 5.0 g/dL [facility] Total Bilirubin 3.9 (H) 0.1 - 1.2 mg/dL [facility] Bilirubin, 1.4 (H) 0.0 - 0.4 mg/dL [facility] Alkaline 64 30 - 115 U/L [facility] AST 309 (H) 5 - 40 U/L [facility] ALT 244 (H) 5 - 50 U/L [facility] Specimen Blood Narrative Performed At Geochemist [employer] [facility] Specimen slightly icteric Performing Organization Address [facility] one Number [facility] [address] [facility] [place] [address] * Basic metabolic panel (Na, K+, Cl, CO2, Glu, Ca, BUN, Cr) (05/26/2020 4:24 AM CDT) Sodium 140 135 - 148 meq/L [facility] Potassium 3.5 (L) 3.6 - 5.5 meq/L [facility] Chloride 94 (L) 98 - 106 meq/L [facility] CO2 25 20 - 29 meq/L [facility] BUN 10 10 - 26 mg/dL [facility] Creatinine 0.94 0.50 - 1.20 mg/dL [facility] Glucose 76 70 - 110 mg/dL [facility] Calcium 9.5 8.5 - 10.5 mg/dL [facility] EGFR 81Comment: ESTIMATED GFR IS mL/min/1.73 sq m [facility] NOT ACCURATE CREATININE LABORATORY CLEARANCE IN PREDICTING GLOMERULAR FILTRATION RATE. ESTIMATED GFR IS NOT APPLICABLE FOR DIALYSIS PATIENTS. Specimen Blood Narrative Performed At Geochemist [facility] [facility] Specimen slightly icteric Performing Organization Address [facility] one Number [facility] [place] [address] [facility] [place] [address] * XR chest 1 view portable / bedside (05/26/2020 4:23 AM CDT) Specimen Narrative Performed At FINAL REPORT [email or web address] RAD, CHEST, 1 VIEW, NON DEPT CLINICAL HISTORY: ALCOHOL PROBLEM TECHNIQUE: Single view of the chest. COMPARISON: None IMPRESSION: There are no focal infiltrates or effus ions. No pneumothorax. The cardiomediastinal silhouette is magnifi ed by technique. The osseous structures appear intact. Signed: Leonidas Baird MD Report Verified Date/Time: 05/26/2020 04:25:20 Procedure Note Interface, External Ris In - 05/26/2020 4:27 AM CDT FINAL REPORT RAD, CHEST, 1 VIEW, NON DEPT CLINICAL HISTORY: ALCOHOL PROBLEM TECHNIQUE: Single view of the chest. COMPARISON: None IMPRESSION: There are no focal infiltrates or effusions. No pneumothorax. The cardiomediastinal silhouette is magnified by technique. The osseous structures appear intact. Signed: Leonidas Baird MD Report Verified Date/Time: 05/26/2020 04:25:20 Performing Organization Address [facility] one Number [facility] * CT brain without IV contrast (03/16/2020 2:59 PM CDT) Specimen Narrative Performed At FINAL REPORT [email or web address] CT, BRAIN, WITHOUT CONTRAST INDICATION: Head trauma, minor, normal mental status (Age 19-64y) ALCOHOL PROBLEM FALL TECHNIQUE: Noncontrast axial imaging wa s obtained from the vertex to the skull base. Axial images were recon structed using a bone algorithm. DOSE REDUCTION: Dose modulation, iterat freda reconstruction, and/or weight-based adjustment of the mA/kV wa s utilized to reduce the radiation dose to as low as reasonably achievable. COMPARISON: None. FINDINGS: Intracranial: No intracranial hemorrhag e or abnormal extra-axial collection. No evidence of acute territ orial infarct. No mass effect. No hydrocephalus. Generalized cerebral atrophy with ex va cuo dilatation of the ventricular system proportionate to sul ci. Scattered foci of hypoattenuation within the periventricu lar and subcortical white matter are a nonspecific finding common ly attributed to chronic small vessel ischemic disease. Osseous structures: No fracture. No geovani picious lesion. Paranasal sinuses and mastoid air cells : No evidence of sinusitis. Mastoids are clear. Orbital contents: Globes are intact. IMPRESSION: No acute intracranial hemorrhage. If there is persistent clinical concern for intracranial pathology, MR examination is recommended for furth er characterization. Signed: Giselle Medina MD Report Verified Date/Time: 03/16/2020 15:07:36 Procedure Note Interface, External Ris In - 03/16/2020 3:09 PM CDT FINAL REPORT CT, BRAIN, WITHOUT CONTRAST INDICATION: Head trauma, minor, normal mental status (Age 19-64y) ALCOHOL PROBLEM FALL TECHNIQUE: Noncontrast axial imaging was obtained from the vertex to the skull base. Axial images were reconstructed using a bone algorithm. DOSE REDUCTION: Dose modulation, iterative reconstruction, and/or weight-based adjustment of the mA/kV was utilized to reduce the radiation dose to as low as reasonably achievable. COMPARISON: None. FINDINGS: Intracranial: No intracranial hemorrhage or abnormal extra-axial collection. No evidence of acute territorial infarct. No mass effect. No hydrocephalus. Generalized cerebral atrophy with ex vacuo dilatation of the ventricular system proportionate to sulci. Scattered foci of hypoattenuation within the periventricular and subcortical white matter are a nonspecific finding commonly attributed to chronic small vessel ischemic disease. Osseous structures: No fracture. No suspicious lesion. Paranasal sinuses and mastoid air cells: No evidence of sinusitis. Mastoids are clear. Orbital contents: Globes are intact. IMPRESSION: No acute intracranial hemorrhage. If there is persistent clinical concern for intracranial pathology, MR examination is recommended for further characterization. Signed: Giselle Medina MD Report Verified Date/Time: 03/16/2020 15:07:36 Performing Organization Address City/State/Zipcode Ph one Number GE RIS after 07/11/2019 Insurance Type Payer Benefit Subscriber ID Effective Phone Address Plan / Dates Group CDC REVIEW CDC REVIEW [id number] 2020- [address] [place] [address] Advance Directives For more information, please contact: [phone] Date Inactivated Comments Code Status Date Activated 05/27/2020 1:14 PM Full Code 05/26/2020 6:21 AM This code status was determined by: Patient
--- OUTSIDE RECORDS SUMMARY | 2020-07-11 04:10 | XMS REPORT | Continuity of Care Document ---
Author Author [facility] t Organization [facility] Address [address] [place] [address] Phone Unavailable Care Team Providers Care Hearing Aid Repair Technician Name Role Phone Pcp, No PCP Unavailable Monserrat HERNANDEZ Attphys Unavailable Leslie Rodrigues MD Attphys Tiburcio Kelly MD Attphys Tracey BERUMEN, Ya Attphys TIBURCIO KELLY Attphys Unavailable Guy HYMAN, Kelly Attphys Unavailable Josh LAMBERT Attphys Unavailable Cristóbal BERUMEN, Monserrat Awan Attphys Julia BERUMEN, Betito Dey Attphys Rivera BERUMEN, Phillip Bourne Attphys Gennaro BERUMEN, Santosh Burrell Attphys Jose BERUMEN, Jose Hernandez Attphys Christopher BERUMEN, Lizette Almazan Attphys [phone] Talon BERUMEN, Ivteh Umana Attphys TALON, IVETH ROSA Attphys Unavailable Deyanira BERUMEN, Betito Crow Attphys Aaliyah MACHINE FELLER, S Ya Attphys [phone] Bryan BERUMEN, G Ania Attphys Viral RING STRIKER, Amy Attphys Unavailable Darek MACHINE FELLER, Tiffani Jason Attphys Yasmine MACHINE FELLER, U Daly Attphys Kory BERUMEN, Leslie Knapp Attphys Toro MACHINE FELLER, Nolan Attphys Bharath RING STRIKER, Maryjo Garciaya Attphys Unavailable LI, YA Admphys Unavailable RIVERA, MUNIRU Admphys Unavailable Payers Payer Name Policy Type Policy Number Effective Date Expiration Date S scotty [facility] REVIEWCDC [id number] MELL ANTOINE [id number] 2020 00:00:00 [facility] Problems Condition Name Condition Details Condition Category Status Onset Date Resolution Date Last Treatment Date Treating Clinician Comments Source Alcohol withdrawal syndrome with complication Alcohol withdrawal syndrome with complication Disease Active 2020-05-26 00:00:00 [facility] Elevated LFTs Elevated LFTs Disease Active 2020-05-26 00:00:00 [facility] Hypomagnesemia Hypomagnesemia Disease Active 2020-05-26 00:00:00 [facility] Hypertension Hypertension Disease Active 2020-05-26 00:00:00 [facility] Hypothyroidism Hypothyroidism Disease Active 2020-05-26 00:00:00 [facility] Hypothyroidism due to acquired atrophy of thyroid Hypo thyroidism due to acquired atrophy of thyroid Disease Active 2019-02-06 00:00:00 [facility] Essential hypertension, benign Essential hypertension, benign Disea se Active 2019-02-06 00:00:00 [facility] MDD (major depressive disorder) MDD (major depressive disorder) Dis ease Active 2019-02-06 00:00:00 [facility] ASTRID (generalized anxiety disorder) ASTRID (generalized anxiety diso rder) Disease Active 2019-02-06 00:00:00 [facility] Alcohol withdrawal Alcohol withdrawal Disease Active 2018-06-02 00:00:0 0 [facility] Nausea Nausea Disease Active 2018-05-20 00:00:00 [facility] Obesity, Class I, BMI 30-34.9 Obesity, Class I, BMI 30-34.9 Disease Active 2018-05-03 00:00:00 [facility] Chronic right-sided low back pain with right-sided sci atica since 2014 Chronic right-sided low back pain with right-sided sciatica since 2014 Disease Active 2018-05-03 00:00:00 [facility] Chronic hepatitis C without hepatic coma Chronic hepat itis C without hepatic coma Disease Active 2018-05-03 00:00:00 [facility] Alcoholic intoxication without complication Alcoholic intoxication without complication Disease Active [facility] History of Past Illness Condition Name Condition Details Condition Category Status Onset Date Resolution Date Last Treatment Date Treating Clinician Comments Source Sepsis Sepsis Disease Resolved 2020-03-28 00:00:00 2020-04-01 00:00:00 2020-04-01 12:54:11 Alan Queen Allergies, Adverse Reactions, Alerts Allergy Name Allergy Type Status Severity Reaction(s) Onset Date Inacti ve Date Treating Clinician Comments Source No Known Allergies DA Active U 2020-03-11 00:00:00 [facility] No Known Allergies DA Active U 2019-04-20 00:00:00 [facility] Family History Family Member Diagnosis Comments Start Date Stop Date Source Natural brother No Known Problems Emanuel Queen Natural father Stroke [facility] Natural father Hy[facility] Natural father [facility] Natural mother No Known Problems Darrion joyce Sabianist Natural mother Hypertension [facility] Natural sister No Known Problems Darrion Queen Social History Social Habit Start Date Stop Date Quantity Comments Source Sex [facility] Alcohol intake 2020-04-09 00:00:00 2020-04-09 00:00:00 Current drinker of alcohol (finding) [facility] Tobacco use and exposure 2020-03-29 00:00:00 2020-03-29 00:00:00 Kym r used [facility] History SDOH Education 2020-03-29 00:00:00 2020-03-29 00:00:00 17 [facility] History SDOH Food Worry 2019-05-13 00:00:00 2019-05-13 00:00:00 1 [facility] History SDOH Food Scarcity 2019-05-13 00:00:00 2019-05-13 00:00:00 1 [facility] Alcohol Comment 2019-05-13 00:00:00 2019-05-13 00:00:00 Last time u sed 05/13/19 [facility] Smoking Status Start Date Stop Date Source Never smoker [facility] Medications Ordered Medication Name Filled Medication Name Start Date Stop Da te Current Medication? Ordering Clinician Indication Dosage Frequency Signature (SIG) Comments Components Source sertraline (ZOLOFT) 50 mg tablet 2020-06-21 00:00:00 Yes Moderate episode of recurrent major depressive disorder TAKE 1 TABLET BY [facility] EVERY DAY [facility] levothyroxine (SYNTHROID, LEVOTHROID) 88 MCG tablet 05-27 11:14:18 Yes 88ug Take 88 mcg by mouth Every morning on an empty stomach. [facility] multivitamins (FOLTX, FOLBIC) 2-1.13-25 mg Tab tablet 2020-05-27 00:00:00 2020-07-26 23:59:00 Yes 1{tbl} QD Take 1 tab let by mouth daily for 60 days. [facility] Antoline r chlordiazePOXIDE (LIBRIUM) 25 MG capsule 2020-05 00:00:00 2020-06-04 23:59:00 No Take 1 capsule (25 mg total) by mouth 3 (three) times daily for 2 days, THEN 1 capsule (25 mg total) 2 (two) times daily for 3 days, THEN 1 capsule (25 mg total) daily for 3 days. Max Daily Amount: 75 mg. [facility] pantoprazole (PROTONIX) 40 MG EC tablet 00:00:00 2020-05-02 23:59:00 No 40mg QD Take 1 tablet (40 mg total) by mouth daily for 30 days. Alan Queen metoprolol succinate XL (TOPROL-XL) 25 mg 24 hr tablet 2020-04-01 15:47:22 Yes 25mg QD Take 25 mg by mouth daily. Aaln Queen levothyroxine (SYNTHROID) 88 mcg tablet 2020-04-01 15:47:22 Yes 88ug QD Take 88 mcg by mouth daily. Alan alexis gabapentin (NEURONTIN) 100 mg capsule 2020-04-01 00:00 :00 2020-05-01 23:59:00 No 100mg Q.[id number] Take 1 capsule (100 mg total) by mouth 3 (three) times a day for 30 days. Alan Queen sulfamethoxazole-trimethoprim (Bactrim DS) 800-160 mg per ta blet 2020-04-01 00:00:00 2020-04-22 23:59:00 No 1{tbl} Q.5D Take 1 tablet by mouth 2 (two) times a day for 21 days. Alan agustin chlordiazePOXIDE (LIBRIUM) 5 MG capsule 00:00:00 2020-04-09 23:59:00 No 10mg tid x 2da ys, then 5mg tid x 2d, then 5mg bid x 2d, then 5mg qhs for 2d Alan Queen traMADoL (Ultram) 50 mg tablet 2020-04-01 00:00:00 5 23:59:00 No acute pain 50mg Q6H Take 1 tablet (50 mg total) by mouth every 6 (six) hours as needed for moderate pain for up to 5 days .acute pain. Alan Queen ondansetron ODT (Zofran ODT) 4 MG disintegrating tablet 2020-03-04 00:00:00 2020-04-01 00:00:00 No 4mg Q8H Take 1 tablet (4 mg total) by mouth every 8 (eight) hours as needed for vomiting for up to 30 days. Alan Queen chlordiazePOXIDE (LIBRIUM) 25 MG capsule 2020-03 00:00:00 2020-03-09 23:59:00 No 25mg Q.[id number] Ta ke 1 capsule (25 mg total) by mouth 3 (three) times a day as needed for anxiety or withdrawal for up to 5 days. Alan Queen amLODIPine (NORVASC) 5 mg tablet 2020-02-22 00:00:00 Yes Essential hypertension, benign 5mg QD Take 1 tablet by mouth daily. [facility] levothyroxine (SYNTHROID) 88 mcg tablet 2020-02-15 00:00:00 Yes Hypothyroidism due to acquired atrophy of thyroid 88ug QD Take 1 tablet by mouth daily. [facility] chlordiazePOXIDE (LIBRIUM) 25 mg capsule 2019-12-29 00:00:00 Yes Alcohol withdrawal syndrome without complication DO NOT TAKE IF DRINKING ALCOHOL. Take two tablets every six hours on the first day, then one tablet every six hours on day 2 and 3. [facility] sertraline (ZOLOFT) 50 mg tablet 2019-12-29 00:00:00 2020-06 00:00:00 No Moderate episode of recurrent major depressive disorder 50mg QD Take 1 tablet by mouth daily for 90 days. [facility] hydrOXYzine (ATARAX) 25 mg tablet 2019-12-29 00:00:00 2019 23:59:00 No ASTRID (generalized anxiety disorder) 25mg Take 1 tablet by mouth 3 times daily as needed for up to 10 days for Itching. [facility] GUAIFENESIN-DM CR (MUCINEX DM) 30-600 mg tablet 2019-10-13 0 0:00:00 Yes Acute URI 1{tbl} Take 1 tablet by gucci th 2 times daily as needed for Cough or Congestion. [facility] loratadine (CLARITIN) 10 mg tablet 2019-10-13 00:00:00 Y es Acute URI 10mg QD Take 1 tablet by mouth daily. [facility] sertraline (ZOLOFT) 50 mg tablet 2019-10-13 00:00:00 2019-12 00:00:00 No Moderate episode of recurrent major depressive disorder 50mg QD Take 1 tablet by mouth daily for 90 days. [facility] hydrOXYzine (ATARAX) 25 mg tablet 2019-09-15 00:00:00 2019 23:59:00 No Moderate episode of recurrent major depressive disorder 25mg Take 1-2 tablets by mouth nightly at bedtime as needed for up to 90 days for Anxiety or Insomnia. [facility] sertraline (ZOLOFT) 50 mg tablet 2019-09-15 00:00:00 2019-10 00:00:00 No Moderate episode of recurrent major depressive disorder 50mg QD Take 1 tablet by mouth daily for 90 days. [facility] amLODIPine (NORVASC) 2.5 mg tablet 2019-09-07 00:00:00 00:00:00 No Essential hypertension, benign 2.5mg QD Take 1 tablet by mo uth daily. [facility] sertraline (ZOLOFT) 50 mg tablet 2019-09-07 00:00:00 2019-09 00:00:00 No Moderate episode of recurrent major depressive disorder 50mg QD Take 1 tablet by mouth daily. [facility] hydrOXYzine (ATARAX) 25 mg tablet 2019-09-07 00:00:00 2019 00:00:00 No Moderate episode of recurrent major depressive disorder 25mg Take 1-2 tablets by mouth nightly at bedtime as needed for Anxiety or Insomnia. [facility] naproxen (NAPROSYN) 500 mg tablet 2019-08-07 00:00:00 Yes Chronic right- sided low back pain with right-sided sciatica 500mg Take 1 tablet by mouth 2 times daily as needed for Pain. [facility] loratadine (CLARITIN) 10 mg tablet 2019-08-07 00:00:00 00:00:00 No Environmental allergies 10mg QD Take 1 tablet by mouth andreia ly. [facility] sertraline (ZOLOFT) 50 mg tablet 2019-07-14 00:00:00 2019-09 00:00:00 No Moderate episode of recurrent major depressive disorder 50mg QD Take 1 tablet by mouth daily for 60 days. [facility] hydrOXYzine (ATARAX) 25 mg tablet 2019-07-14 00:00:00 2019 00:00:00 No Moderate episode of recurrent major depressive disorder 25mg Take 1 to 2 tablets by mouth nightly at bedtime as needed for up to 60 days for Anxiety or Insomnia. [facility] metoprolol succinate (TOPROL XL) 50 mg extended release tabl et 2019-06-24 00:00:00 Yes Essential hypertension, benign 25mg QD Take 0.5 tablets by mouth daily. [facility] levothyroxine (SYNTHROID) 88 mcg tablet 00:00:00 2020-02-15 00:00:00 No Hypothyroidism due to acquired atrophy of thyro id 88ug QD Take 1 tablet by mouth daily. [facility] amLODIPine (NORVASC) 5 mg tablet 2019-06-24 00:00:00 2020-02 00:00:00 No Essential hypertension, benign 5mg QD Take 1 tablet by mouth mei rodriguez [facility] ledipasvir-sofosbuvir (HARVONI) 90-400 mg Tab 20 20-06-17 00:00:00 2019-09-10 23:59:00 No Chronic hepatitis C without hepatic coma 1{tbl} QD Take 1 tablet [facility] tablet 2019-06-16 00:00:00 2019-07 00:00:00 No Moderate episode of recurrent major depressive disorder 50mg QD Take 1 tablet by mouth daily for 60 days. [facility] hydrOXYzine (ATARAX) 25 mg tablet 2019-06-16 00:00:00 2018 00:00:00 No Moderate episode of recurrent major depressive disorder 25mg Take 1-2 tablets by mouth nightly at bedtime as needed for up to 60 days for Anxiety or Insomnia. [facility] loratadine (CLARITIN) 10 mg tablet 2019-06-08 00:00:00 05-14-06 00:00:00 No Environmental allergies 10mg QD Take 1 tablet by mouth andreia oakley [facility] naproxen (NAPROSYN) 500 mg tablet 2019-06-08 00:00:00 2018 00:00:00 No Chronic right-sided low back pain with right-sided sciatica 500m g Take 1 tablet by mouth 2 times daily as needed for Pain. [facility] gabapentin (NEURONTIN) 300 mg capsule 2019-05-13 00:00:00 Yes Alcohol withdrawal syndrome without complication 1 capsule every 6 hours on Day 1; 1 capsule every 8 hours on day 2.; 1 capsule every 12 hours on day 3; 1 capsule daily on day 4. [facility] folic acid (FOLVITE) 1 mg tablet 2019-05-13 00:00:00 Yes Alcohol withdrawal syndrome without complication 1mg QD Take 1 tablet by mouth daily. [facility] Immunizations Ordered Immunization Name Filled Immunization Name Date Status Comments Source Twinrix-HEP A&b 2019-07-20 00:00:00 Completed [facility] Influenza, Vaccine<FLUCELVAX>(Multi-Dose) 2019-06-30 00:00 :00 Completed [facility] Twinrix-HEP A&b 2019-06-18 00:00:00 Completed [facility] PPD 2019-05-13 00:00:[address] [facility] [place] [facility] 23 (Pneumococcal Polysaccharide 23 Valent) 2017-10 00:00:00 Completed [facility] Influenza, Seasonal, Injectable 2017-06-26 00:00:00 Comple italia [facility] Vital Signs Vital Name Observation Time Observation Value Comments Source Body weight 2020-05-27 09:00:00 105.5 kg [facility] BMI 2020-05-27 09:00:00 31.54 kg/m2 [facility] Systolic blood pressure 2020-05-27 08:15:00 150 mm[Hg] [facility] Diastolic blood pressure 2020-05-27 08:15:00 85 mm[Hg] [facility] Heart rate 2020-05-27 08:15:00 80 /min [facility] Body temperature 2020-05-27 08:15:00 35.94 Carmen [facility] Respiratory rate 2020-05-27 08:15:00 18 /min [facility] Oxygen saturation in Arterial blood by Pulse oximetry 05-27 08:15:00 94 /[facility] 2020-05-26 03:55:00 182.9 cm [facility] Systolic blood pressure 2020-04-09 08:00:00 151 mm[Hg] [facility] Diastolic blood pressure 2020-04-09 08:00:00 93 mm[Hg] [facility] Heart rate 2020-04-09 08:00:00 72 /min [facility] Body temperature 2020-04-09 08:00:00 36.5 Carmen [facility] Respiratory rate 2020-04-09 08:00:00 17 /min [facility] Oxygen saturation in Arterial blood by Pulse oximetry 04-09 08:00:00 96 /min [facility] Heart rate 2020-04-01 14:08:00 67 /min Alan Queen Respiratory rate 2020-04-01 14:08:00 18 /min Kandy Queen Systolic blood pressure 2020-04-01 08:21:02 131 mm[Hg] Alan Queen Diastolic blood pressure 2020-04-01 08:21:02 79 mm[Hg] Alan Queen Body temperature 2020-04-01 08:21:02 35.78 Carmen Hous ton [facility] Oxygen saturation in Arterial blood by Pulse oximetry 04-01 08:21:02 98 /min Alan Queen Body height 2020-03-28 05:16:00 182.9 cm Alan Queen Body weight 2020-03-28 05:16:00 95.255 kg Alan Felixist BMI 2020-03-28 05:16:00 28.48 kg/m2 Alan Queen Body height 2019-10-13 13:26:00 179.3 cm [facility] Body weight 2019-10-13 13:26:00 102.059 kg [facility] BMI 2019-10-13 13:26:00 31.74 kg/m2 [facility] Procedures Procedure Date / Time Performed Performing Clinician Sour e RHYTHM STRIP - SCAN 2020-05-31 09:21:44 Provider, Default Scanni dandre [facility] REPORT OF PROCEDURE - ENDOSCOPY SCAN 2020-05-31 09:21:40 Pro vider, Default Scanning [facility] COMPREHENSIVE METABOLIC PANEL 2020-05-27 03:34:00 Tracey [facility] LIPID PANEL 2020-05-27 03:34:00 Tracey [facility] VITAMIN B12 2020-05-27 03:34:00 Sheri Levy [facility] TSH/FREE T4 IF INDICATED 2020-05-26 15:19:00 Sheri Levy eeq [facility] US ABDOMEN LIMITED 2020-05-26 07:50:00 Olivia Webb [facility] SARS-COV2/RT-PCR (HS & REF LABS) 2020-05-26 06:21:00 Esteban Lees [facility] RAPID DRUG SCREEN, URINE 2020-05-26 05:35:00 Joseph Kelly [facility] URINALYSIS W/ REFLEX URINE CULTURE 2020-05-26 05:35:00 Norris Concepcion [facility] ECG 12-LEAD 2020-05-26 04:38:23 Unknown, Hl7 Doctor [facility] BASIC METABOLIC PANEL (7) 2020-05-26 04:24:00 Wilmer Kellyel [facility] ETHANOL 2020-05-26 04:24:00 Luis Antonio Norris Tiburcio [facility] HEPATIC FUNCTION PANEL 2020-05-26 04:24:00 Norris Kelly [facility] LIPASE 2020-05-26 04:24:00 Norris Kellyel [facility] MAGNESIUM 2020-05-26 04:24:[facility] AUTO DIFFERENTIAL 2020-05-26 04:24:00 [facility] PORT[facility]/BEDSIDE 2020-05-26 04:23:00 [facility] BASIC METABOLIC PANEL 2020-04-09 07:06:00 Dianna Leonardo [facility] LIVER PROFILE 2020-04-09 07:06:00 Dianna Leonardo [facility] LIPASE 2020-04-09 07:06:00 Dianna Leonardo [facility] CBC/DIFF 2020-04-09 06:00:00 Dianna Leonardo [facility] CBC 2020-04-09 06:00:00 Dianna Leonardo [facility] CONSULT CLINICAL CASE MANAGEMENT (RN/SW) 2020-04-09 05:45:46 Dianna Leonardo [facility] XR CHEST 1 VW PORTABLE 2020-04-01 09:33:06 David Castano BASIC METABOLIC PANEL 2020-04-01 04:25:00 David Castano HC COMPLETE BLD COUNT W/AUTO DIFF 2020-04-01 04:25:00 David Castano HEPATIC FUNCTION PANEL 2020-04-01 04:25:00 David Castano MAGNESIUM LEVEL 2020-04-01 04:25:00 David Castano ESTIMATED GFR 2020-04-01 04:25:00 David Castano PROSTATE SPECIFIC ANTIGEN 2020-03-31 09:53:00 Lokesh Sandoval PROCALCITONIN 2020-03-31 05:04:00 David Castano HEPATITIS ACUTE PANEL 2020-03-31 05:04:00 David Castano BASIC METABOLIC PANEL 2020-03-31 04:55:00 PallDavid maldonado HC COMPLETE BLD COUNT W/AUTO DIFF 2020-03-31 04:55:00 David Castano HEPATIC FUNCTION PANEL 2020-03-31 04:55:00 David Castano MAGNESIUM LEVEL 2020-03-31 04:55:00 David Castano PROTHROMBIN TIME WITH INR 2020-03-31 04:55:00 David Castano ESTIMATED GFR 2020-03-31 04:55:00 David Castano CBC HEMOGRAM 2020-03-30 06:10:00 Indra Burdick VANCOMYCIN LEVEL, TROUGH 2020-03-29 20:01:00 Indra Burdick TPAA-AZAG-EHO-2 TOTAL 2020-03-29 15:20:00 Irina HolmJulieth Alan Queen COVID-19 QUALITATIVE PCR 2020-03-29 14:46:00 Indra Burdick ANAEROBIC CULTURE 2020-03-29 14:00:00 Jose Walters AEROBIC CULTURE 2020-03-29 14:00:00 Jose Walters GRAM STAIN 2020-03-29 14:00:00 Jose Walters GENERAL 2020-03-29 13:55:[address] ABDOMEN PELVIS W WO CONTRAST 2020-03-29 09:33:54 Lokesh Sandoval URINE CULTURE 2020-03-29 07:09:00 Lokesh Sandoval Meth odist URINALYSIS SCREEN AND MICROSCOPY, WITH REFLEX TO CULTURE 202 06:37:00 Lokesh Sandoval HC COMPLETE BLD COUNT W/AUTO DIFF 2020-03-29 04:52:00 Alta Nohemi jhonatan Phillips [facility] C-REACTIVE PROTEIN 2020-03-29 04:52:00 Irina Holm [facility] COMPREHENSIVE METABOLIC PANEL 2020-03-29 04:52:00 HolmIrina D-DIMER 2020-03-29 04:52:00 HolmIrina perez on [facility] FERRITIN LEVEL 2020-03-29 04:52:00 HolmIrina on [facility] FIBRINOGEN 2020-03-29 04:52:00 Holm, Irina Kahn on [facility] LDH 2020-03-29 04:52:00 HolmIrina on [facility] TRIGLYCERIDES 2020-03-29 04:52:00 Holm, Irina Kahn on [facility] ESTIMATED GFR 2020-03-29 04:52:00 HolmIrina on [facility] TYPE AND SCREEN 2020-03-29 04:45:[address] on [facility] [address] CHEST WO CONTRAST 2020-03-29 02:02:45 Irina Holm ARTERIAL BLOOD GAS 2020-03-29 00:15:00 Irina Holm [facility] RESPIRATORY PATHOGEN PANEL 2020-03-28 23:09:00 HolmIrina dennis LACTIC ACID LEVEL, SEPSIS - NOW AND REPEAT 2X EVERY 3 HOURS 2020-03-28 13:45:00 Tiburcio Dumont LACTIC ACID LEVEL, SEPSIS - NOW AND REPEAT 2X EVERY 3 HOURS 2020-03-28 09:28:00 Tiburcio Dumont TROPONIN 2020-03-28 09:28:00 Indra Burdick COVID-19 QUALITATIVE PCR 2020-03-28 09:05:00 Tiburcio Dumont URINE CULTURE 2020-03-28 08:21:00 Tiburcio Dumont n [facility] URINALYSIS SCREEN AND MICROSCOPY, WITH REFLEX TO CULTURE 202 08:21:00 Tiburcio Dumont XR CHEST 1 VW PORTABLE 2020-03-28 07:00:00 Tiburcio Dumont LACTIC ACID LEVEL, SEPSIS - NOW AND REPEAT 2X EVERY 3 HOURS 2020-03-28 06:55:00 Tiburcio Dumont BLOOD CULTURE, AEROBIC & ANAEROBIC 2020-03-28 06:15:00 Nicolás Dumont MS CRITICAL CARE, E/M 30-74 MINUTES 2020-03-28 06:05:41 Tiffani Dumont ECG ED PRELIMINARY INTERPRETATION 2020-03-28 06:05:41 Rishabh Dumont BLOOD CULTURE, AEROBIC & ANAEROBIC 2020-03-28 06:00:00 Nicolás Dumont TROPONIN 2020-03-28 05:44:00 Philip Phillips ECG 12-LEAD 2020-03-28 05:32:11 Philip Phillips XR KNEE 3 VW LEFT 2020-03-27 18:48:23 Rachel Qureshi BLOOD CULTURE, AEROBIC & ANAEROBIC 2020-03-27 17:56:00 Rachel Pimentel HC COMPLETE BLD COUNT W/AUTO DIFF 2020-03-27 17:56:00 Rachel Murphy COMPREHENSIVE METABOLIC PANEL 2020-03-27 17:56:00 Alessandra Qureshi LACTIC ACID LEVEL, SEPSIS - NOW AND REPEAT 2X EVERY 3 HOURS 2020-03-27 17:56:00 Rachel Qureshi C-REACTIVE PROTEIN 2020-03-27 17:56:00 Rachel Qureshi SEDIMENTATION RATE 2020-03-27 17:56:00 Rachel Qureshi ALCOHOL LEVEL, BLOOD 2020-03-27 17:56:00 Rachel Qureshi TROPONIN 2020-03-27 17:56:00 Philip Phillips ESTIMATED GFR 2020-03-27 17:56:00 Rachel Qureshi [facility] BLOOD CULTURE, AEROBIC & ANAEROBIC 2020-03-27 17:50:00 DerickRachel simmons Alan Queen ECG 12-LEAD 2020-03-27 17:46:59 Philip Phillips REPORT OF PROCEDURE - ENDOSCOPY SCAN 2020-03-22 10:52:20 Pro vider, Default Scanning [facility] ECG 12-LEAD 2020-03-16 15:45:45 Unknown, Hl7 Doctor [facility] COMPREHENSIVE METABOLIC PANEL 2020-03-16 15:12:00 [facility] ETHANOL 2020-03-16 15:12:00 [facility] CBC W/PLT COUNT & AUTO DIFFERENTIAL 2020-03-16 15:12:[address] [facility] [address] BRAIN WITHOUT IV CONTRAST 2020-03-16 14:59:00 [facility] XR CHEST 1 VW PORTABLE 2020-03-04 14:13:44 Herman Mcmillan TROPONIN 2020-03-04 11:09:00 Philip Phillips URINE CULTURE 2020-03-04 08:46:00 Herman Mcmillan URINALYSIS SCREEN AND MICROSCOPY, WITH REFLEX TO CULTURE 202 08:46:00 Herman Mcmillan URINE DRUGS OF ABUSE SCREEN 2020-03-04 08:46:00 Herman Mcmillan TROPONIN 2020-03-04 07:52:00 Philip Phillips HC COMPLETE BLD COUNT W/AUTO DIFF 2020-03-04 07:52:00 Fredo Mcmillan COMPREHENSIVE METABOLIC PANEL 2020-03-04 07:52:00 Herman Mcmillan ALCOHOL LEVEL, BLOOD 2020-03-04 07:52:00 Herman Mcmillan ACETAMINOPHEN LEVEL 2020-03-04 07:52:00 Herman Mcmillan uston Sabianist SALICYLATE LEVEL 2020-03-04 07:52:00 Herman Mcmillan on Sabianist ESTIMATED GFR 2020-03-04 07:52:00 Herman Mcmillanto n Sabianist ECG ED PRELIMINARY INTERPRETATION 2020-03-04 07:45:24 Fredo Mcmillan ECG 12-LEAD 2020-03-04 07:32:00 Philip Phillips POC RAPID HIV 2019-10-13 13:25:00 Casie Oswald [facility] Plan of Care Planned Activity Planned Date Details Comments Source Future Scheduled Test 2023-05-27 00:00:00 Lipid panel (proce dure) [code = 25630219] [facility] Future Scheduled Test 2020-06-02 00:00:00 IMM Influenza Seas onal Jun to October (>/= 19 yrs) [code = IMM Influenza Seasonal Jun to October (>/= 19 yrs)] [facility] Scheduled Test 2020-05-20 00:00:00 Screening for lisa gnant neoplasm of colon (procedure) [code = 846877525] [facility] Scheduled Test 2020-05-03 00:00:00 INFLUENZA VACCINE (#1) [code = INFLUENZA VACCINE (#1)] [facility] Future Scheduled Test 2020-04-02 00:00:00 INFLUENZA VACCINE [code = INFLUENZA VACCINE] [facility] Scheduled Test 2007-11-10 00:00:00 COLONOSCOPY SCREEN ING [code = COLONOSCOPY SCREENING] [facility] Scheduled Test 2007-11-10 00:00:00 SHINGLES VACCINES (#1) [code = SHINGLES VACCINES (#1)] [facility] Scheduled Test 1955 00:00:00 Screening for lisa gnant neoplasm of colon (procedure) [code = 651406844] [facility] Encounters Start Date/Time End Date/Time Encounter Type Admission Type [facility] Care Department Encounter ID Source 2020-04-09 05:17:18 2020-04-09 08:56:00 Emergency LIZZIE LAMBERT [facility] [id number] [facility] 2020-03-28 00:00:00 2020-04-01 00:00:00 Inpatient KORY CASTANO [facility] [id number] [facility] 2020-03-27 00:00:00 2020-03-27 00:00:00 Emergency ZAIRA MARIANO [facility] [id number] [facility] 2020-03-04 00:00:00 2020-03-04 00:00:00 Emergency HERMAN MCMILLAN [facility] [id number] [facility] 2020-03-02 00:00:00 2020-03-02 00:00:[address] [facility] [id number] [place] [facility] 2020-02-29 06:53:30 2020-02-29 06:53:[address] [facility] [id number] [place] [facility] 2020-02-15 12:12:38 2020-02-15 12:12:[address] [facility] [id number] [place] [facility] 2020-01-08 00:00:00 2020-01-08 00:00:[address] [facility] [id number] [facility] 2020-01-08 00:00:00 2020-01-08 00:00:[address] [facility] [id number] [place] [facility] 2019-12-29 07:32:11 2019-12-29 07:32:[address] [facility] [id number] [place] [facility] 2019-12-18 00:00:00 2019-12-18 00:00:[address] [facility] [id number] [facility] 2019-12-07 00:00:00 2019-12-07 00:00:[address] [facility] [id number] [facility] 2019-11-10 11:37:00 2019-11-10 11:37:00 Emergency E [facility] 7500 [facility] 2019-10-27 00:00:00 2019-10-27 00:00:[address] [facility] [id number] [facility] 2019-10-13 13:20:21 2019-10-13 13:20:[address] [facility] [id number] [facility] 2019-09-15 09:54:38 2019-09-15 09:54:[address] [facility] [id number] [facility] 2019-09-14 13:40:31 2019-09-14 13:40:[address] [facility] [id number] [place] [facility] 2019-09-08 00:00:00 2019-09-08 00:00:[address] [facility] [id number] [facility] 2019-09-07 13:51:26 2019-09-07 13:51:[address] [facility] [id number] [facility] 2019-08-07 13:23:18 2019-08-07 13:23:[address] [facility] [id number] [facility] 2019-07-20 13:22:06 2019-07-20 13:22:[address] [facility] [id number] [facility] 2019-07-14 10:18:46 2019-07-14 10:18:[address] [facility] [id number] [facility] 2019-07-06 10:41:35 2019-07-06 10:41:[address] [facility] [id number] [facility] 2019-07-02 00:00:00 2019-07-02 00:00:[address] [facility] [id number] [facility] 2019-06-30 09:54:05 2019-06-30 09:54:[address] [facility] [id number] [facility] 2019-06-25 00:00:00 2019-06-25 00:00:[address] [facility] [id number] [facility] 2019-06-24 08:00:17 2019-06-24 08:00:[address] [facility] [id number] [facility] 2019-06-22 13:34:20 2019-06-22 13:34:[address] [facility] [id number] [facility] 2019-06-18 10:57:40 2019-06-18 10:57:[address] [facility] [id number] [facility] 2019-06-18 00:00:00 2019-06-18 00:00:[address] [facility] [id number] [facility] 2019-02-06 11:24:10 2019-02-06 11:24:[address] [facility] [id number] [facility] 2019-01-31 16:53:43 2019-01-31 16:53:43 Emergency [facility] [id number] [facility] 2018-12-25 00:00:00 2018-12-25 00:00:[address] [facility] [id number] [facility] 2018-11-14 09:10:40 2018-11-14 09:10:[address] [facility] [id number] [facility] 2018-10-15 15:55:00 2018-10-15 15:55:00 Emergency [facility] [id number] [facility] 2018-10-09 18:51:03 2018-10-09 18:51:[address] [facility] [id number] [facility] 2018-06-02 08:56:20 2018-06-02 08:56:20 Emergency [facility] [id number] [facility] 2018-06-01 15:13:00 2018-06-01 15:13:00 Emergency [facility] [id number] [facility] 2018-05-20 08:00:38 2018-05-20 08:00:[address] [facility] [id number] [facility] 2018-05-19 22:46:25 2018-05-19 22:46:25 Emergency [facility] [id number] [facility] 2018-05-03 08:32:20 2018-05-03 08:32:[address] [facility] [id number] [facility] Results Test Description Test Time Test Comments Results Result Comments Source KNEE LEFT THREE VIEWS 2020-07-11 03:55:00 [facility] 1955 Sex: M [place] [address] Patient Name: BILL BELTRAN MR #: [id number] : 1955 Age/Sex: 64/M Req #: [id number] [facility] Physician: Ordered by: LEVY HERNANDEZ MD Report #: [id number] Location: ER Room/Bed: Procedure: [id number] DX/KNEE LEFT THREE VIEWS Exam Date: Exam Time: REPORT STATUS: Signed KNEE LEFT THREE VIEWS - 3 views HISTORY: Pain COMPARISON: None available. FINDINGS: Bones: No acute displaced fracture. Osseous alignment is within normal limits. Joints: The joint spaces are well-maintained. Soft tissues: The soft tissues appear unremarkable. IMPRESSION: No acute radiographic abnormality. Signed by: Dr. Alycia Judd MD on 07/11/2020 3:55 AM Dictated By: ALYCIA JUDD MD 4 Transcribed By: MILKA on 07/11/20354 COPY TO: LEVY HENRANDEZ MD [facility] (PORTABLE) 2020-07-11 03:54:00 [facility] : 1955 Sex: M [facility] [address] [place] [address] Patient Name: BILL BELTRAN MR #: [id number] : 1955 Age/Sex: 64/M Req #: [id number] [facility] Physician: Ordered by: LEVY HERNANDEZ MD Report #: [id number] Location: ER Room/Bed: Procedure: [id number] DX/CHEST SINGLE (PORTABLE) Exam Date: Exam Time: REPORT STATUS: Signed EXAMINATION: CHEST SINGLE (PORTABLE) INDICATION: S/P FALL, ETOH WITHDRAWAL Y COMPARISON: None FINDINGS: AP view TUBES and LINES: None. LUNGS: Limited by body habitus and slight rotation. There is no evidence of pneumonia or pulmonary edema. PLEURA: No pleural effusion or pneumothorax. HEART AND MEDIASTINUM: The cardiomediastinal silhouette is unremarkable. BONES AND SOFT TISSUES: No acute osseous lesion. Soft tissues are unremarkable. UPPER ABDOMEN: No free air under the diaphragm. IMPRESSION: No acute thoracic abnormality. Signed by: Dr. Alycia escalante MD on 07/11/2020 3:54 AM Dictated By: ALYCIA JUDD MD 3 Transcribed By: MILKA on 07/11/20353 COPY TO: LEVY HERNANDEZ MD ECG 12 lead 2020-06-17 16:48:21 Ashley Ivy xternal Ris In - 06/17/2020 4:48 PM CDTVentricular Rate 86 BPMAtrial Rate 86 BPMP-R Interval 144 msQRS Duration 90 msQ-T Interval 424 msQTC Calculation(Bazett) 507 msP [place] 49 degreesR [place] 13 degreesT [place] 15 degreesNormal sinus rhythmProlonged QTAbnormal ECGWhen compared with ECG of 16-MAR-2020 15:45,No significant change was foundConfirmed by Rafael Patel ([id number]) on 06/17/2020 4:48:15 PM [facility] Vitamin B12 2020-05-27 10:38:00 Test Item Vitamin B12 (test code = 2132-9) 235 pg/mL 213-816 DENISE (test code = DENISE) Consulting Services Manager ID - SHAQUILLE C Lab Interpretation (test code = 01357-3) Normal [facility] UCLAVITAMIN [id number] 10:38:00* Test Item Value Reference Range Interpretation Comments VITAMIN B12 (BEAKER) (test code = 774) 235 pg/mL 213-816 Consulting Services Manager ID - SHAQUILLE CComprehensive metabolic [id number] 04:18:00* Test Item Value Reference Range Interpretation Comments Protein, Total (test code = 2885-2) 6.7 6.0- 8.5 gm/dL Albumin (test code = 91988-8) 3.7 g/dL 3.5-5 Alkaline Phosphatase (test code = 6768-6) 54 U/L 30-115 Total Bilirubin (test code = 1975-2) 4.3 mg/dL 0.1-1.2 H Sodium (test code = 2951-2) 137 meq/L 135-148 Potassium (test code = 2823-3) 3.3 meq/L 3.6-5.5 L Chloride (test code = 2075-0) 100 meq/L 98-106 CO2 (test code = 8-9) 26 meq/L 20-29 BUN (test code = 3094-0) 12 mg/dL 10-26 Creatinine (test code = 2160-0) 0.78 mg/dL 0.5-1.2 Glucose (test code = 2345-7) 94 mg/dL 70-110 Calcium (test code = 29407-3) 7.7 mg/dL 8.5-10.5 L AST (test code = 1920-8) 251 U/L 5-40 H ALT (test code = 1742-6) 191 U/L 5-50 H EGFR (test code = 88867-5) 101 mL/min/1.73 sq m ESTIMATED GFR IS NOT ACCURATE CREATININE CLEARANCE IN PREDICTING GLOMERULAR FILTRATION RATE. ESTIMATED GFR IS NOT APPLICABLE FOR DIALYSIS PATIENTS. DENISE (test code = DENISE) Consulting Services Manager ID - Tamar TSpecimen slightly icter ic Lab Interpretation (test code = 93275-4) Abnormal [facility] [id number] 04:18:00* Test Item Value Reference Range Interpretation Comments TOTAL PROTEIN (BEAKER) (test code = 770) 6.7 gm/dL 6.0-8.5 ALBUMIN (BEAKER) (test code = 1145) 3.7 g/dL 3.5-5.0 ALKALINE PHOSPHATASE (BEAKER) (test code = 346) 54 U/L 30-115 BILIRUBIN TOTAL (BEAKER) (test code = 377) 4.3 mg/dL 0.1-1.2 H SODIUM (BEAKER) (test code = 381) 137 meq/L 135-148 POTASSIUM (BEAKER) (test code = 379) 3.3 meq/L 3.6-5.5 L CHLORIDE (BEAKER) (test code = 382) 100 meq/L 98-106 CO2 (BEAKER) (test code = 355) 26 meq/L 20-29 BLOOD UREA NITROGEN (BEAKER) (test code = 354) 12 mg/dL 10-26 CREATININE (BEAKER) (test code = 358) 0.78 mg/dL 0.50-1.20 GLUCOSE RANDOM (BEAKER) (test code = 652) 94 mg/dL 70-110 CALCIUM (BEAKER) (test code = 697) 7.7 mg/dL 8.5-10.5 L AST (SGOT) (BEAKER) (test code = 353) 251 U/L 5-40 H ALT (SGPT) (BEAKER) (test code = 347) 191 U/L 5-50 H EGFR (BEAKER) (test code = 1092) 101 mL/min/1.73 sq m ESTIMATED GFR IS NOT ACCURATE CREATININE CLEARANCE IN PREDICTING GLOMERULAR FILTRATION RATE. ESTIMATED GFR IS NOT APPLICABLE FOR DIALYSIS PATIENTS. Consulting Services Manager EMMA Wiseman slightly ictericLipid [id number] 04:17:00* Test Item Value Reference Range Interpretation Comments Triglycerides (test code = 2571-8) 70 mg/dL Cholesterol (test code = 2093-3) 139 mg/dL HDL (test code = 2085-9) 65 mg/dL LDL Calculated (test code = 58897-3) 60 mg/dL DENISE (test code = DENISE) Triglyceride Reference Range : Low Risk <150 Borderline 150-199 High Risk 200-499 Very High Risk >=500 Cholesterol Reference Range: Low Risk <200 Borderline 200-239 High Risk >240 HDL Cholesterol Reference Range: Low Risk >=60 High Risk <40 LDL Cholesterol Reference Range: Optimal <100 Near Optimal 100-129 Borderline 130-159 High 160-189 Very High >=190 Consulting Services Manager EMMA Wolf Tamar Tahiradolfoimen slightly icteric [facility] [id number] 04:17:00* Test Item Value Reference Range Interpretation Comments TRIGLYCERIDES (BEAKER) (test code = 540) 70 mg/dL CHOLESTEROL (BEAKER) (test code = 631) 139 mg/dL HDL CHOLESTEROL (BEAKER) (test code = 976) 65 mg/dL LDL CHOLESTEROL CALCULATED (BEAKER) (test code = 633) 60 mg/dL Triglyceride Reference Range: Low Risk <150 Borderline 150-199 High Risk 200-499 Very High Risk >=500Cholesterol Reference Range: Low Risk <200 Borderline 200-239 High Risk >240HDL Cholesterol Reference Range: Low Risk >=60 High Risk <40LDL Cholesterol Reference Range: Optimal <100 Near Optimal 100-129 Borderline 130-159 High 160-189 Very High >=190 Consulting Services Manager ID - Tamar TSpecimen slightly ictericTSH/Free T4 If [id number] 16:25:00* Test Item Value Reference Range Interpretation Comments TSH (test code = 74724-8) 1.608 0.350- 5.500 uIU/mL DENISE (test code = DENISE) Consulting Services Manager ID - DAVID Lab Interpretation (test code = 11409-3) Normal [facility] CenterTSH/FREE T4 IF [id number] 16:25:00* Test Item Value Reference Range Interpretation Comments THYROID STIMULATING HORMONE (BEAKER) (test code = 772) 1.608 uIU /mL 0.350-5.500 Consulting Services Manager ID - DAVIDSARS-CoV2/RT-PCR (Asymptomatic ONLY)2020-05-26 14:16:00* Test Item Value Reference Range Interpretation Comments SARS-COV2/RT-PCR (test code = 23187-2) Negative N ot Detected, Negative, See external report for linked test SARS-COV-2 PERFORMING LAB (test code = 08213-0) [facility] DENISE (test code = DENISE) Negative result for this trevor t determines that SARS-CoV-2 RNA was not present in the specimen above the Limit of Detection (LOD). However, Negative results do not preclude SARS-CoV-2 infection and should not be used as the sole basis for treatment or patient management decisions. Negative results must be combined with clinical observations, patient history, and epidemiological information. A false negative result may occur if a specimen is improperly collected, transported or handled. A false negative result should be considered if patient's recent exposures or clinical presentation indicate that COVID-19 (SARS-CoV-2) is likely and diagnostic tests for other causes of illness are negative. Re-testing should be considered in cases of suspected false negatives. The limit of detection for this assay is 800 copies/mL. This SARS CoV-2 test is a real-time RT-PCR test intended for the qualitative detection of nucleic acid from SARS-CoV-2 in a nasopharyngeal swab specimen collected from individuals suspected of COVID-19 by their healthcare provider. This test has not been Food and Drug Administration (FDA) cleared or approved. This is a modified version of an approved Emergency Use Authorization (EUA) and is in the process of review by the FDA. Once authorized by the FDA, the issued EUA will be effective until the declaration that circumstances exist justifying the authorization of the emergency use of in vitro diagnostic tests for detection and/or diagnosis of COVID-19 is terminated under Section 564(b)(2) of the Act or the EUA is revoked under Section 564(g) of the Act. Fact Sheet for Healthcare Providers:https://www.[employer]/sites/default/files/product/documents/Fact_Shee w_JI_Nosnudqaj_Dqcq_RNHP-YqL-0.pdf Fact Sheet for Healthcare Patients:https://www.[employer]/sites/default/files/pro duct/documents/Wbmb_Zfxzu_Lwmlnesx_Pcwf_OBXN-DbD-4.pdf Performing Laboratory:[facility] Keena [place], [place] [address] [place], [place] [address]ARS-COV2/RT-PCR ([facility])2020-05-26 14:16:00* Test Item Value Reference Range Interpretation Comments SARS-COV2/RT-PCR (test code = 2087533) Negative N ot Detected, Negative, See external report for linked test SARS-COV-2 PERFORMING LAB (test code = 5522269) [facility] Negative result for this test determines that SARS-CoV-2 RNA was not present in the specimen above the Limit of Detection (LOD). However, Negative results do n ot preclude SARS-CoV-2 infection and should not be used as the sole basis for tr eatment or patient management decisions. Negative results must be combined with clinical observations, patient history, and epidemiological information. A false negative result may occur if a specimen is improperly collected, transported or handled. A false negative result should be considered if patient's recent expo sures or clinical presentation indicate that COVID-19 (SARS-CoV-2) is likely and diagnostic tests for other causes of illness are negative. Re-testing should be considered in cases of suspected false negatives.The limit of detection for this assay is 800 copies/mL.This SARS CoV-2 test is a real-time RT-PCR test intended for the qualitative detection of nucleic acid from SARS-CoV-2 in a nasopharyn geal swab specimen collected from individuals suspected of COVID-19 by their [facility] provider.This test has not been Food and Drug Administration (FDA) clear ed or approved. This is a modified version of an approved Emergency Use Authori zation (EUA) and is in the process of review by the FDA. Once authorized by [facility], the issued EUA will be effective until the declaration that circumstances exist justifying the authorization of the emergency use of in vitro diagnostic tests for detection and/or diagnosis of COVID-19 is terminated under Section 564 (b)(2) of the Act or the EUA is revoked under Section 564(g) of the Act.Fact She et for Healthcare Providers:https://www.[employer]/sites/default/files/product/d ocuments/Albk_Jiokw_NP_Vcahzgmds_Xbne_MHQD-DxF-5.pdfFact Sheet for Healthcare Pa nandini:https://www.[employer]/sites/default/files/product/documents/Fact_Sheet_P txgkmfa_Olpd_INHL-JgT-2.pdfPerforming Laboratory:[facility] r[address] [facility].[place], [place] [address]Y/S, ABDOMINAL, [id number] 07:55:00 Abdomen limited area? Add comment if clarification is needed.->Liverand gallbladderReason for exam:->ALCOHOL PROBLEM, elevated LFTlast drink yesterday around 1999, detoxingFINAL REPORT TECHNIQUE: Grayscale ultrasound of the right abdomen. INDICATION: Elevated LFT. COMPARISON: None. FINDINGS: MIDLINE VASCULATURE: The visualized inferior vena cava is patent. Portal vein is patent and measures 1 cm in diameter. The maximum visualized aortic diameter is 2.5 cm. LIVER: Markedly echogenic liver. Liver measures 16.6 cm in craniocaudal dimension.. No focal lesions. BILIARY:Gallbladder: Cholelithiasis. No gallbladder wall thickening, pericholecystic fluid, or distention. Negative sonographic Talley sign.Common bile duct measures 0.4 cm, within normal limits. No intrahepatic biliary ductal dilatation. PANCREAS: Incompletely visualized due to overlying bowel gas. PERITONEUM: No free fluid. RIGHT KIDNEY: The right kidney is normal in size and measures 11.1 cm in length. No hydronephrosis. No sonographically evident solid mass lesion. IMPRESSION:Hepatic steatosis and/or diffuse hepatocellular disease. C holelithiasis without sonographic evidence of acute cholecystitis.. Signed: Keiko Bean MDReport Verified Date/Time: 05/26/2020 07:55:09 Reading Loc ation: [facility] Diagnostic Imaging Reading Room - [facility] F1 1129 Electronically sig allan by: KEIKO BARRAZA MD on 05/26/2020 07:55 AM US abdomen limited 2020-05-26 07:55:00Interface, External Ris In - 05/26/2020 7:58 AM CDTFINAL REPORT TECHNIQUE: Grayscale ultrasound of the right abdomen. INDICATION: Elevated LFT. COMPARISON: None. FINDINGS: MIDLINE VASCULATURE: The visualized inferior vena cava is patent. Portal vein is patent and measures 1 cm in diameter. The maximum visualized aortic diameter is 2.5 cm. LIVER: Markedly echogenic liver. Liver measures 16.6 cm in craniocaudal dimension.. No focal lesions. BILIARY:Gallbladder: Cholelithiasis. No gallbladder wall thickening, pericholecystic fluid, or distention. Negative sonographic Talley sign.Common bile duct measures 0.4 cm, within normal limits. No intrahepatic biliary ductal dilatation. PANCREAS: Incompletely visualized due to overlying bowel gas. PERITONEUM: No free fluid. RIGHT KIDNEY: The right kidney is normal in size and measures 11.1 cm in length. No hydronephrosis. No sonographically evident solid mass lesion. IMPRESSION:Hepatic steatosis and/or diffuse hepatocellular disease. Cholelithiasis without sonographic evidence of acute cholecystitis.. Signed: Keiko Barraza MDReport Verified Date/Time: 05/26/2020 07:55:09 Reading Location: [facility] Diagnostic Imaging Reading Room - [place] [address] [facility] UCLARapid drug screen, urine 2020-05-26 06:12:00* Test Item Value Reference Range Interpretation Comments Barbiturate Screen (test code = 47506-4) Negative Negative Benzodiazepine Screen (test code = 34426-3) Positive Negative A Cocaine (Metab.) Screen (test code = 3397-7) Negative Negative Opiate Screen (test code = 27878-1) Negative Negative Cannabinoid Screen (test code = 23680-6) Negative Negative Amph/Methamph Screen (test code = 65160-2) Negative Negative Phencyclidine Screen (test code = 94091-0) Negative Negative pH, UA (test code = 5803-2) 7.0 5.0-8.0 DENISE (test code = DENISE) DRUG CUTOF F CONC.Cocaine 300 ng/mLCannabinoid 50 ng/mLBenzodiazepine 200 ng/mLBarbiturate 200 ng/mLPhencyclidine 25 ng/mLOpiate 300 ng/mLAmphetamine/ 1000 ng/mL Methamphetamine This assay provides an unconfirmed qualitative test result for the clinical management of patients in emergency situations. Chain of custody not maintained. Some ldkw-qwc-bnqnzgi medications, as well as adulterants, may cause inaccurate results. Clinical correlation should be applied. A more comprehensive drug scr een or confirmation of a detected drug may be performed upon request.Consulting Services Manager ID - ELIEL Lab Interpretation (test code = 58739-4) Abnormal [facility] UCLARAD DRUG SCREEN, [id number] 06:12:00* Test Item Value Reference Range Interpretation Comments BARBITURATE URINE (BEAKER) (test code = 725) Negative Negative BENZODIAZEPINE SCREEN URINE (BEAKER) (test code = 726) Positive Negative A COCAINE (METAB.) SCREEN (BEAKER) (test code = 1164) Negative Ne gative OPIATE SCREEN URINE (BEAKER) (test code = 734) Negative Negativ e CANNABINOID SCREEN URINE (BEAKER) (test code = 727) Negative Ne gative AMPH/METHAMPH SCREEN (BEAKER) (test code = 1438) Negative Negat freda PHENCYCLIDINE SCREEN URINE (BEAKER) (test code = 608) Negative Negative PH UA (BEAKER) (test code = 467) 7.0 5.0-8.0 DRUG CUTOFF CONC.Cocaine 300 ng/mLCannabinoid 50 ng/mLBenzodiazepine 200 ng/mLBarbiturate 200 ng/mLPhencyclidine 25 ng/mLOpiate 300 ng/mLA mphetamine/ 1000 ng/mL MethamphetamineThis assay provides an unconfi rmed qualitative test result for the clinical management of patients in emergenc y situations. Chain of custody not maintained. Some smag-cyr-jufutps medications , as well as adulterants, may cause inaccurate results. Clinical correlation glen uld be applied. A more comprehensive drug screen or confirmation of a detected d rug may be performed upon request.Consulting Services Manager ID - SHANNONUrinalysis w/Microscopic + Reflex to [id number] 05:57:00* Test Item Value Reference Range Interpretation Comments Color, UA (test code = 5778-6) Yellow Clarity, UA (test code = 5767-9) Clear Specific Logan, UA (test code = 5811-5) 1.015 1.001-1.035 pH, UA (test code = 5803-2) 7.0 5.0-8.0 Protein, UA (test code = 94106-0) Negative Negative Glucose, UA (test code = 365) Negative Negative Ketones, UA (test code = 2514-8) Trace Negative A Bilirubin, UA (test code = 16280-9) Negative Negative Blood, UA (test code = 96122-9) Negative Negative Nitrite, UA (test code = 5802-4) Negative Negative Leukocytes, UA (test code = 5799-2) Negative Negative Urobilinogen, UA (test code = 08857-1) 0.2 mg/dL 0.2-1 Bacteria, UA (test code = 87684-6) None Seen RBC, UA (test code = 799-7) None Seen /HPF WBC, UA (test code = 52495-3) None Seen /HPF SQUAMOUS EPITHELIAL (test code = 72855-8) None Seen /HPF Specimen Source (test code = 2795) Lab Interpretation (test code = 64098-3) [facility] [id number] 05:57:00* Test Item Value Reference Range Interpretation Comments COLOR (BEAKER) (test code = 470) Yellow CLARITY (BEAKER) (test code = 469) Clear SPECIFIC GRAVITY UA (BEAKER) (test code = 468) 1.015 1.001-1 .035 PH UA (BEAKER) (test code = 467) 7.0 5.0-8.0 PROTEIN UA (BEAKER) (test code = 464) Negative Negative GLUCOSE UA (BEAKER) (test code = 365) Negative Negative KETONES UA (BEAKER) (test code = 371) Trace Negative A BILIRUBIN UA (BEAKER) (test code = 462) Negative Negative BLOOD UA (BEAKER) (test code = 461) Negative Negative NITRITE UA (BEAKER) (test code = 465) Negative Negative LEUKOCYTE ESTERASE UA (BEAKER) (test code = 466) Negative Negat freda UROBILINOGEN UA (BEAKER) (test code = 463) 0.2 mg/dL 0.2-1.0 BACTERIA (BEAKER) (test code = 517) None Seen RBC UA-MANUAL (BEAKER) (test code = 1659) None Seen /HPF WBC UA-MANUAL (BEAKER) (test code = 1661) None Seen /HPF SQUAMOUS EPITHELIAL MANUAL (BEAKER) (test code = 1663) None Seen /H PF SOURCE(BEAKER) (test code = 2795) Basic metabolic panel (Na, K+, Cl, CO2, Glu, Ca, BUN, Cr)2020-05-26 04:57:00* Test Item Value Reference Range Interpretation Comments Sodium (test code = 2951-2) 140 meq/L 135-148 Potassium (test code = 2823-3) 3.5 meq/L 3.6-5.5 L Chloride (test code = 2075-0) 94 meq/L 98-106 L CO2 (test code = 8-9) 25 meq/L 20-29 BUN (test code = 3094-0) 10 mg/dL 10-26 Creatinine (test code = 2160-0) 0.94 mg/dL 0.5-1.2 Glucose (test code = 2345-7) 76 mg/dL 70-110 Calcium (test code = 86062-6) 9.5 mg/dL 8.5-10.5 EGFR (test code = 38523-3) 81 mL/min/1.73 sq m ESTIMATED GFR IS NOT ACCURATE CREATININE CLEARANCE IN PREDICTING GLOMERULAR FILTRATION RATE. ESTIMATED GFR IS NOT APPLICABLE FOR DIALYSIS PATIENTS. DENISE (test code = DENISE) Consulting Services Manager ID - ELIELSpecglorian slightly icteri c Lab Interpretation (test code = 99184-7) Abnormal [facility] UCLAHepatic function [id number] 04:57:00* Test Item Value Reference Range Interpretation Comments Protein, Total (test code = 2885-2) 8.6 6.0- 8.5 gm/dL H Albumin (test code = 63551-6) 4.5 g/dL 3.5-5 Total Bilirubin (test code = 1975-2) 3.9 mg/dL 0.1-1.2 H Bilirubin, Direct (test code = 1968-7) 1.4 mg/dL 0-0.4 H Alkaline Phosphatase (test code = 6768-6) 64 U/L 30-115 AST (test code = 1920-8) 309 U/L 5-40 H ALT (test code = 1742-6) 244 U/L 5-50 H DENISE (test code = DENISE) Consulting Services Manager ID - Fara slightly icteri c Lab Interpretation (test code = 96650-3) Abnormal [facility] UCLALipase2020-09-24 04:57:00* Test Item Value Reference Range Interpretation Comments Lipase (test code = 3040-3) 14 U/L 6-51 DEINSE (test code = DENISE) Consulting Services Manager ID - ELIELSpecimen slightly icteri c Lab Interpretation (test code = 24849-7) Normal [facility] UCLAMagnesium2020-09-24 04:57:00* Test Item Value Reference Range Interpretation Comments Magnesium (test code = 29403-2) 1.1 mg/dL 1.5-3 L DENISE (test code = DENISE) Consulting Services Manager ID - ELIEL Lab Interpretation (test code = 56349-9) Abnormal [facility] UCLAMAGNESIUM2020-09-24 04:57:00* Test Item Value Reference Range Interpretation Comments MAGNESIUM (BEAKER) (test code = 627) 1.1 mg/dL 1.5-3.0 L Consulting Services Manager ID - SHANNONBASIC METABOLIC [id number] 04:57:00* Test Item Value Reference Range Interpretation Comments SODIUM (BEAKER) (test code = 381) 140 meq/L 135-148 POTASSIUM (BEAKER) (test code = 379) 3.5 meq/L 3.6-5.5 L CHLORIDE (BEAKER) (test code = 382) 94 meq/L 98-106 L CO2 (BEAKER) (test code = 355) 25 meq/L 20-29 BLOOD UREA NITROGEN (BEAKER) (test code = 354) 10 mg/dL 10-26 CREATININE (BEAKER) (test code = 358) 0.94 mg/dL 0.50-1.20 GLUCOSE RANDOM (BEAKER) (test code = 652) 76 mg/dL 70-110 CALCIUM (BEAKER) (test code = 697) 9.5 mg/dL 8.5-10.5 EGFR (BEAKER) (test code = 1092) 81 mL/min/1.73 sq m ESTIMATED GFR IS NOT ACCURATE CREATININE CLEARANCE IN PREDICTING GLOMERULAR FILTRATION RATE. ESTIMATED GFR IS NOT APPLICABLE FOR DIALYSIS PATIENTS. Consulting Services Manager ID - SHANNONSpecimen slightly [id number] 04:57:00* Test Item Value Reference Range Interpretation Comments LIPASE (BEAKER) (test code = 749) 14 U/L 6-51 Consulting Services Manager ID - SHANNONSpecimen slightly ictericHEPATIC FUNCTION [id number] 04:57:00* Test Item Value Reference Range Interpretation Comments TOTAL PROTEIN (BEAKER) (test code = 770) 8.6 gm/dL 6.0-8.5 H ALBUMIN (BEAKER) (test code = 1145) 4.5 g/dL 3.5-5.0 BILIRUBIN TOTAL (BEAKER) (test code = 377) 3.9 mg/dL 0.1-1.2 H BILIRUBIN DIRECT (BEAKER) (test code = 706) 1.4 mg/dL 0.0-0.4 H ALKALINE PHOSPHATASE (BEAKER) (test code = 346) 64 U/L 30-115 AST (SGOT) (BEAKER) (test code = 353) 309 U/L 5-40 H ALT (SGPT) (BEAKER) (test code = 347) 244 U/L 5-50 H Consulting Services Manager ID - SHANNONSpecimen slightly fbhwtieUfrjgql2010-82-57 04:55:00* Test Item Value Reference Range Interpretation Comments Ethanol Lvl (test code = 5643-2) 25 mg/dL <=10 H DENISE (test code = DENIES) Consulting Services Manager ID - ELIEL Lab Interpretation (test code = 18095-3) [facility]normal [facility] Center[facility]ANOL2020-[facility] 04:55:00* Test Item Value Reference Range Interpretation Comments ETHANOL (BEAKER) (test code = 400) 25 mg/dL <=10 H Consulting Services Manager ID - ELIELCBC with platelet count + automated [id number] 04:43:00 * Test Item Value Reference Range Interpretation Comments WBC (test code = 6690-2) 9.6 4.0- 10.0 K/L RBC (test code = 789-8) 4.13 4.20- 5.80 M/L L MCHC (test code = 786-4) 36.7 32.0- 36.0 GM/DL H Hematocrit (test code = 4544-3) 41.2 % 36-50 MCV (test code = 787-2) 99.8 fL 82-99 H MCH (test code = 785-6) 36.6 pg 27-33 H RDW (test code = 788-0) 15.9 % 12-15 H Platelets (test code = 777-3) 332 150- 430 K/CU MM MPV (test code = 61760-8) 10.0 fL 6-11.5 nRBC (test code = 413) 0 0- 0 /100 WBC % Neutros (test code = 429) 45 % % Lymphs (test code = 430) 38 % % Monos (test code = 431) 16 % % Eos (test code = 432) 1 % % Baso (test code = 437) 1 % # Neutros (test code = 670) 4.32 1.80- 8.00 K/L # Lymphs (test code = 414) 3.62 1.48- 4.50 K/L # Monos (test code = 415) 1.50 0.00- 1.30 K/L H # Eos (test code = 416) 0.12 0.00- 0.50 K/L # Baso (test code = 417) 0.05 0.00- 0.20 K/L Immature Granulocytes-Relative (test code = 2801) 0 % 0-0 Lab Interpretation (test code = 81199-1) Abnormal [facility] W/PLT COUNT & AUTO [id number] 04:43:00* Test Item Value Reference Range Interpretation Comments WHITE BLOOD CELL COUNT (BEAKER) (test code = 775) 9.6 K/ L 4.0- 10.0 RED BLOOD CELL COUNT (BEAKER) (test code = 761) 4.13 M/ L 4.20-5 .80 L HEMOGLOBIN (BEAKER) (test code = 410) 15.1 GM/DL 13.0-16.8 HEMATOCRIT (BEAKER) (test code = 411) 41.2 % 36.0-50.0 MEAN CORPUSCULAR VOLUME (BEAKER) (test code = 753) 99.8 fL 82. 0-99.0 H MEAN CORPUSCULAR HEMOGLOBIN (BEAKER) (test code = 751) 36.6 pg 27.0-33.0 H MEAN CORPUSCULAR HEMOGLOBIN CONC (BEAKER) (test code = 752) 36.7 GM/DL 32.0-36.0 H RED CELL DISTRIBUTION WIDTH (BEAKER) (test code = 412) 15.9 % 12.0-15.0 H PLATELET COUNT (BEAKER) (test code = 756) 332 K/CU MM 150-430 MEAN PLATELET VOLUME (BEAKER) (test code = 754) 10.0 fL 6.0-11 .5 NUCLEATED RED BLOOD CELLS (BEAKER) (test code = 413) 0 /100 WBC 0 -0 NEUTROPHILS RELATIVE PERCENT (BEAKER) (test code = 429) 45 % LYMPHOCYTES RELATIVE PERCENT (BEAKER) (test code = 430) 38 % MONOCYTES RELATIVE PERCENT (BEAKER) (test code = 431) 16 % EOSINOPHILS RELATIVE PERCENT (BEAKER) (test code = 432) 1 % BASOPHILS RELATIVE PERCENT (BEAKER) (test code = 437) 1 % NEUTROPHILS ABSOLUTE COUNT (BEAKER) (test code = 670) 4.32 K/ L 1.80-8.00 LYMPHOCYTES ABSOLUTE COUNT (BEAKER) (test code = 414) 3.62 K/ L 1.48-4.50 MONOCYTES ABSOLUTE COUNT (BEAKER) (test code = 415) 1.50 K/ L 0. 00-1.30 H EOSINOPHILS ABSOLUTE COUNT (BEAKER) (test code = 416) 0.12 K/ L 0.00-0.50 BASOPHILS ABSOLUTE COUNT (BEAKER) (test code = 417) 0.05 K/ L 0. 00-0.20 IMMATURE GRANULOCYTES-RELATIVE PERCENT (BEAKER) (test code = 2801) 0 % 0-0 RAD, CHEST, 1 VIEW, NON [id number] 04:25:00Reason for exam:->ALCOHOL PROBLEMlast drink yesterday around 1999, detoxingShould this be performed at the bedside?->YesFINAL REPORT RAD, CHEST, 1 VIEW, NON DEPT CLINICAL HISTORY: ALCOHOL PROBLEM TECHNIQUE: Single view of the chest. COMPARISON: None IMPRESSION: There are no focal infiltrates or effusions. No pneumothorax. The cardiomediastinal silhouette is magnified by technique. The osseous structures appear intact. Signed: Leonidas Workman Verified Date/Time: 05/26/2020 04:25:20 chest 1 view portable / [id number] 04:25:00Interface, External Ris In - 05/26/2020 4:27 AM CDTFINAL REPORT RAD, CHEST, 1 VIEW, NON DEPT CLINICAL HISTORY: ALCOHOL PROBLEM TECHNIQUE: Single view of the chest. COMPARISON: None IMPRESSION: There are no focal infiltrates or effusions. No pneumothorax. The cardiomediastinal silhouette is magnified by technique. The osseous structures appear intact. Signed: Leonidas Workman Verified Date/Time: 05/26/2020 04:25:20 [facility] UCLABasi Metabolic [id number] 07:34:00* Test Item Value Reference Range Interpretation Comments Sodium (test code = 2951-2) 141 mmol/L 136-145 Potassium (test code = 2823-3) 3.1 mmol/L 3.5-5.1 L Chloride (test code = 2075-0) 101 mmol/L 98-107 CO2 (test code = 22824660) 26 mmol/L 21-31 Urea Nitrogen (test code = 53778315) 9.0 mg/dL 7-25 Creatinine (test code = 16728597) 1.1 mg/dL 0.7-1.3 Glucose (test code = 34861984) 101 mg/dL 70-110 Calcium (test code = 22918626) 7.9 mg/dL 8.6-10.3 L GFR, Estimated (test code = 56977709) 68 >=90 mL/min/1.73 m2 L Anion Gap (test code = 38711090) 14 mmol/L 5-16 Lab Interpretation (test code = 51994-3) [facility]normal [facility]40-45 07:34:00* Test Item Value Reference Range Interpretation Comments Lipase (test code = 98325098) 14 U/L 11-82 Lab Interpretation (test code = 80516-7) Normal [facility] HospitalLiver Cwisbxn8615-49-03 07:34:00* Test Item Value Reference Range Interpretation Comments Bilirubin, Total (test code = 2885-2) 0.8 mg/dL 0.2-1.2 Alkaline Phosphatase (test code = 86147106) 70 U/L 34-104 AST (test code = 88729606) 83 U/L 13-39 H Direct Bilirubin (test code = 1968-7) 0.2 mg/dL 0-0.2 ALT (test code = 60924129) 53 U/L 7-52 H Albumin (test code = 79787-3) 3.8 g/dL 4.2-5.5 L Lab Interpretation (test code = 02050-2) Abnormal [facility] HospitalCBC/[id number] 06:08:00* Test Item Value Reference Range Interpretation Comments WBC (test code = 6690-2) 10.3 K/uL 4.5-12 RBC (test code = 789-8) 3.65 4.60- 6.20 M/uL L Hemoglobin (test code = 718-7) 13.2 g/dL 14-18 L Hematocrit (test code = 4544-3) 38.4 % 40-54 L MCV (test code = 787-2) 105.2 fL 82-92 H MCH (test code = 785-6) 36.2 pg 27-31 H MCHC (test code = 786-4) 34.4 g/dL 32-36 RDW (test code = 74287-8) 59.2 fL 35.1-43.9 H Platelet (test code = 777-3) 447 K/uL 150-400 H Mean Platelet Volume (test code = 80066-2) 10.2 fL 9.4-12.4 Percent NRBC (test code = 96966467) 0.0 % Neutrophil (test code = 770-8) 47.6 % 34-67.9 Lymphs (test code = 736-9) 29.8 % 21.8-50 Monocytes (test code = 5905-5) 20.3 % 5.3-12 H Eos (test code = 713-8) 0.8 % 0.8-5 Basos (test code = 706-2) 1.2 % 0.2-1.2 Immature Granulocytes (test code = 57491060) 0.3 % 0-0.5 Neutrophils (Absolute) (test code = 46342858) 4.91 K/uL 1.78-5.3 6 Lymphs (Absolute) (test code = 05096290) 3.07 K/uL 1.32-3.57 Monocytes(Absolute) (test code = 91954386) 2.09 K/uL 0.3-0.82 H Eos (Absolute) (test code = 76290096) 0.08 K/uL 0.04-0.54 Baso (Absolute) (test code = 03470450) 0.12 K/uL 0.01-0.08 H Immature Grans (Abs) (test code = 62267807) 0.03 K/uL 0-0.03 Absolute NRBC (test code = 63304820) 0.00 K/uL Lab Interpretation (test code = 25794-2) [facility]normal [facility], aerobic & bzqkppxhm4210-39-22 16:33:03* Test Item Value Reference Range Interpretation Comments Blood culture isolate (test code = 600-7) No growth after 5 days of incubation. Specimen InformationSpecimen Source: BloodSpecimen Site: Forearm, left [facility] MethodistAnaerobic vxjnwae1885-12-33 09:19:03* Test Item Value Reference Range Interpretation Comments Anaerobic culture isolate (test code = 552) No anaerobic organis ms isolated. Specimen InformationSpecimen Source: Abs cessSpecimen Site: Knee Alan QueenQqaxonnpgYobxuaubuiinw6465-26-48 11:46:44* Test Item Value Reference Range Interpretation Comments Procalcitonin (test code = 00081-0) 0.07 ng/mL <=0.07 INTERPRETIVE INFORMATION: ProcalcitoninProcalcitonin > 2.00 ng/mL: Procalcitonin levels above 2.00 ng/mL on the first day of ICU admission represent a high risk for progression to severe sepsis and/or septic shock.Procalcitonin < 0.50 ng/mL: Procalcitonin levels below 0.50 ng/mL on the first day of ICU admission represent a low risk for progression to severe sepsis and/or septic shock.If t he procalcitonin measurement is performed shortly after the systemic infection process has started (usually less than 6 hours), these values may still be low. As various non-infectious conditions are known to induce procalcitonin as well, procalcitonin levels between 0.5 ng/mL and 2.00 ng/mL should be reviewed carefully to take into account the specific clinical background and condition(s) of the individual patient.Performed By: [facility] at [address] [address]Mrfquhsqcz Director: Mirian Davies DO, MPHPerformed by [facility], [address] [place] [id number] www.[email or web address], Shin Estrada MD - Lab. Director Alan QueenXR Chest 1 Vw Isreufka1036-93-64 09:58:51Hm Interface, Radiology Results Incoming 04/01/2020 10:01 AM CDTEXAMINATION: XR CHEST 1 VW PORTABLECLINICAL HISTORY: wheezingCOMPARISON: To a previous examination from 03/28/2020IMPRESSION:The cardiomediastinal silhouette is normal in appearance.The lungs are clear. There is no evidence of consolidation, congestion, or pneumothorax.A pleural effusion is not present.Visualized skeletal structures demonstrate no definite abnormality.The left hemidiaphragm is slightly elevat ed.[facility]-[id number] MethodistBasic metabolic gqlqt7702-65-29 05:40:04* Test Item Value Reference Range Interpretation Comments Sodium (test code = 2951-2) 140 135- 148 mEq/L Potassium (test code = 2823-3) 3.5 3.5- 5.0 mEq/L Chloride (test code = 5-0) 100 99- 109 mEq/L CO2 (test code = 2027-9) 27 24- 31 mEq/L Anion gap (test code = 27233-1) 13@ANIO 7- 15 mEq/L BUN (test code = 3094-0) 11 mg/dL 8-24 Creatinine (test code = 2160-0) 0.80 mg/dL 0.7-1.2 Glucose (test code = 2345-7) 107 mg/dL 65-99 H Calcium (test code = 06341-9) 8.0 mg/dL 8.6-10.6 L Lab Interpretation (test code = 60876-9) Abnormal [facility] Methodunm cancer centerHepatic function fckjw5736-23-37 05:40:03* Test Item Value Reference Range Interpretation Comments Albumin (test code = 1751-7) 3.5 g/dL 3.5-5 Total bilirubin (test code = 1974-2) 0.7 mg/dL 0.2-1.2 Bilirubin direct (test code = 1967-7) 0.2 mg/dL 0-0.4 Alkaline phosphatase (test code = 6768-6) 56 U/L 30-115 Protein (test code = 2885-2) 6.7 g/dL 6.3-8.2 ALT (test code = 1742-6) 38 U/L 10-55 AST (test code = 1920-8) 42 U/L 15-46 [facility] MethodistMagnesium sbohv1696-03-39 05:40:03* Test Item Value Reference Range Interpretation Comments Magnesium (test code = 52588-0) 1.4 mg/dL 1.7-2.4 L Lab Interpretation (test code = 23179-6) Abnormal [facility] MethodistEstimated [id number] 05:40:02* Test Item Value Reference Range Interpretation Comments Estimated GFR (test code = 5488) >=90 mL/min/1.73 m2 Catergory Units InterpretationG1 >=90 Normal or highG2 60-89 Mildly dnfaekcqkQ5q 45-59 Mildly to moderately wbqpptrxzD3m 30-44 Moderately to severely decreasedG4 15-29 Severely decreasedG5 <15 Kidney failureThe eGFR was calculated using the Chronic Kidney Disease Epidemiology Collaboration (CKD-EPI) equation. Interpretation is based on recommendations of the National Kidney Foundation-Kidney Disease Outcomes Quality Initiative (NKF-KDOQI) published in 2014. [facility] MethodistCBC with platelet and plmehxeitumo3541-60-41 04:42:35* Test Item Value Reference Range Interpretation Comments WBC (test code = 46243-2) 10.6 4.5- 11.0 k/uL RBC (test code = 97006-0) 3.18 4.40- 6.00 M/uL L HGB (test code = 718-7) 11.6 g/dL 14-18 L HCT (test code = 4544-3) 34.6 % 41-51 L MCV (test code = 787-2) 108.8 fL 82-100 H MCH (test code = 785-6) 36.5 pg 27-34 H MCHC (test code = 786-4) 33.5 g/dL 31-37 RDW - SD (test code = 10019-4) 59.9 fL 37-55 H MPV (test code = 30329-5) 10.1 fL 8.8-13.2 Platelet count (test code = 46180-1) 371 K/uL 150-400 Nucleated RBC (test code = 75800-1) 0.20 /100 WBC Neutrophils (test code = 35494-9) 51.3 % 39-69 Lymphocytes (test code = 22104-5) 28.7 % 25-45 Monocytes (test code = 93337-7) 15.5 % 0-10 H Eosinophils (test code = 01248-3) 3.3 % 0-5 Basophils (test code = 18341-7) 0.8 % 0-1 Immature granulocytes (test code = 02234-9) 0.4 % 0-1 "Immature granulocytes" (promyelocytes, myelocytes, metamyelocytes) Lab Interpretation (test code = 37472-4) Abnormal [facility] MethodistProstate specific lrrpjzc3211-73-40 15:58:27* Test Item Value Reference Range Interpretation Comments PSA (test code = 2857-1) 3.7 ng/mL 0-4 The CONCHA 8000 PSA immunoassay was used. Results obtained with different assay methods or kits should not be used interchangeably and may be different. [place] Methodunm cancer centerGram irydh0773-53-57 13:53:08Gram stain isolateRare WBC'sNo organisms seen Comment: Specimen InformationSpecimen Source: AbscessSpecimen Site: Knee [facility] MethodistHepatitis acute panel 2020-03-31 12:31:45* Test Item Value Reference Range Interpretation Comments Hepatitis A IgM (test code = 52254-5) Non-reactive Non-reactive Hepatitis B core IgM (test code = 24020-2) Non-reactive Non-reactiv e Hepatitis B surface Ag (test code = 5195-3) Non-reactive Non-reacti ve Hepatitis C Ab (test code = 78024-1) Reactive Non-reactive A HCV antibody testing initially Reactive. Confirmation by HCV RNA PCR will be performed and reported separately when completed. Repeat HCV RNA PCR will not be performed if done within 30 days. Lab Interpretation (test code = 25721-8) Abnormal [facility] RegionalProthrombin time with ERT7635-08-61 05:30:10* Test Item Value Reference Range Interpretation Comments Prothrombin time (test code = 5902-2) 13.7 11.5- 14.5 sec INR (test code = 31176-6) 1.0 Th e International Normalized Ratio (INR) is a therapeutic monitoring tool for patients who are stable on oral anticoagulant therapy. An INR of 2.0-3.0 is suggested for deep vein thrombosis/pulmonary embolism. [facility] RegionalUrine baywjhi4088-03-96 12:56:57* Test Item Value Reference Range Interpretation Comments Urine culture isolate (test code = 03903-3) No growth after 24 hour s Specimen InformationSpecimen Source: UrineSpecimen Site: Clean catch [facility] ghzzhxcz3582-97-50 06:25:43* Test Item Value Reference Range Interpretation Comments WBC (test code = 60857-3) 14.8 4.5- 11.0 k/uL H RBC (test code = 88014-4) 3.49 4.40- 6.00 M/uL L HGB (test code = 718-7) 12.9 g/dL 14-18 L HCT (test code = 4544-3) 37.6 % 41-51 L MCV (test code = 787-2) 107.7 fL 82-100 H MCH (test code = 785-6) 37.0 pg 27-34 H MCHC (test code = 786-4) 34.3 g/dL 31-37 RDW - SD (test code = 59896-8) 59.5 fL 37-55 H MPV (test code = 96688-9) 10.6 fL 8.8-13.2 Platelet count (test code = 50769-7) 414 K/uL 150-400 H Nucleated RBC (test code = 57031-1) 0.30 /100 WBC Lab Interpretation (test code = 13944-4) Abnormal [facility] MethodistCOVID-19 qualitative [id number] 04:04:15* Test Item Value Reference Range Interpretation Comments Interpretation (test code = 5745634) Negative results do not preclude 2019-nCoV infection and should not be used as the sole basis for treatment or other patient management decisions. Negative results must be combined with clinical observations, patient history, and epidemiological information. COVID-19 qualitative PCR result (test code = 10105-6) Not-Detect ed Not-Detected COVID-19 qualitative PCR (test code = 7070) See link below for P DF Lab Report [place] PonsoxyghFfjg-WKZO-DlD-2 akdtz0505-47-10 21:02:11* Test Item Value Reference Range Interpretation Comments Ybou-KXFW-IvZ-2 total (test code = 89958-6) Non-reactive Non-reacti ve This test should not be used for the diagnosis of acute SARS-CoV-2/COVID-19 infection. Results are for the detection of total SARS-CoV-2 antibodies. Reactive results can be indicative of acute or recent infection. Non-reactive results do not preclude SARS-CoV-2 infection and should notbe used as the sole basis for patient management decisions. Results must be combined with clinical observations, patient history, and epidemiological information. The sensitivity of the SARS-CoV-2 Total assay early after infection is unknown. False reactive results may occur due to cross-reactivity from pre-existingantibodies or other possible causes. At this time, it is unknown for howlong antibodies to SARS-CoV-2 virus may persist following infection. This test has not been FDA cleared or approved. This test has been authorized by FDA under an EUA for use by authorized laboratories.This test has been authorized only for the presence of total antibodies against SARS-CoV-2, not for any other viruses or pathogens. This test is only authorized for the duration of the declaration that circumstances exist justifying the authorization of emergency use of in vitro diagnostics for detection and/or diagnosis of COVID-19 under Ltbkcbr937(b)(1) of the Act, 21 U.S.C. 360bbb-3(b)(1), unless authorization isterminated or revoked sooner. [facility] MethodistVancomycin level, gpxkpp1704-92-51 20:35:59* Test Item Value Reference Range Interpretation Comments Vancomycin, trough (test code = 62907-5) 15.1 ug/mL 10-20 Therapeutic Ranges: Peak 30.0 - 40.0 ug/mL Trough 10.0 - 20.0 ug/mL Alan GdpxetkmrJeyzm7317-79-49 13:55:00Jose Walters MD 03/29/2020 2:04 PMOtherDate/Time: 03/29/2020 1:58 PMPerformed by: Jose Walters MDAuthorized by: Jose Walters MD Consent: Consent obtained: Verbal Consent given by: Patient Risks discussed: Bleeding, infection, pain, poor cosmetic result, nerve damage and incomplete drainage Alternatives discussed: No treatment, delayed treatment and observationIndications: Indications: Prepatellar septic bursaPre-procedure details: Skin preparation: Betadine and ChloraPrep Preparation: Patient was prepped and draped in the usual sterile fashion Anesthesia (see MAR for exact dosages): Anesthesia method: Local infiltration Local anesthetic: Lidocaine 1% w/o epiPost-procedure details: Patient tolerance of procedure: Tolerated well, no immediate complicationsComments: I infiltrated the anterior knee with local a nestheticUtilzied a #15 blade and made a 5mm incision in the front of the kneeI probed bursa and obtained a culture swab from the bursaI packed the wound with 1 /2 inch packing and applied a clean dressingI sent culture for aerobic and anaer obic cultures [facility] MethodistRespiratory pathogen pibjh5222-89-65 13:30:04* Test Item Value Reference Range Interpretation Comments Adenovirus PCR (test code = 7092) Not Detected Specimen InformationSpecimen Source: NaresSpecimen Site: Left Coronavirus HKU1 PCR (test code = 7093) Not Detected Coronavirus NL63 PCR (test code = 7094) Not Detected Coronavirus 229E PCR (test code = 7095) Not Detected Coronavirus OC43 PCR (test code = 7096) Not Detected Human metapneumovirus PCR (test code = 7097) Not Detected Human rhinovirus/enterovirus PCR (test code = 7098) Not Detected Influenza A PCR (test code = 7099) Not Detected Influenza A/H1 PCR (test code = 7100) Not Reported Influenza A/H3 PCR (test code = 7102) Not Reported Influenza A/H1-2009 PCR (test code = 7101) Not Reported Influenza B PCR (test code = 7104) Not Detected Parainfluenza virus 1 PCR (test code = 7105) Not Detected Parainfluenza virus 2 PCR (test code = 7106) Not Detected Parainfluenza virus 3 PCR (test code = 7107) Not Detected Parainfluenza virus 4 PCR (test code = 7108) Not Detected Respiratory syncytial virus PCR (test code = 7109) Not Detected Bordetella pertussis PCR (test code = 6067764) Not Detected Bordetella parapertussis PCR (test code = 9778963) Not Detected Chlamydia pneumoniae PCR (test code = 3753) Not Detected Mycoplasma pneumoniae PCR (test code = 7110) Not Detected Influenza A no sub type PCR (test code = 7127) Not Reported [facility] Wo Boghbeev2634-75-79 11:37:05Hm Interface, Radiology Results 03/29/2020 11:40 AM CDTEXAMINATION: CT ABDOMEN PELVIS W WO CONTRASTCLINICAL HISTORY: Hematuria unknown cause, renal stone protocol first and then urogram protocol of IV contrast onlyCOMPARISON: CT chest dated March 29, 2020TECHNIQUE: CT of the abdomen and pelvis with and w ithout intravenous contrast. CT imaging was performed with iterative reconstruct ion techniques and/or automated exposure control to reduce radiation dose. FINDI NGS:LOWER THORAX: The visualized lung bases are clear. There is elevation of th e left hemidiaphragm.HEPATOBILIARY: There is severe hepatic steatosis. 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 There is an exophytic nonenhancing cystic lesion in t he superior pole of the left kidney measuring 2.2 cm. This compatible with a Jovon niak 2 lesion.GI TRACT: Visualized portions of the bowel demonstrate no distent ion or wall thickening.PERITONEUM/RETROPERITONEUM: No free air or fluid. No lym phadenopathy.PELVIC ORGANS/BLADDER: Unremarkable.VASCULATURE: Abdominal aorta i s nonaneurysmal.BONES AND SOFT TISSUES: Unremarkable.IMPRESSION:1.No etiology o f hematuria was identified.2.Severe hepatic steatosis.[facility]-[id number] and approved by chief radiology/fellow: Markos Ramesh Nakul Gupta, M D, personally reviewed the images and resident's/fellow's findings and agree wit h the final report.[facility] MethodistUrinalysis screen and microscopy, with reflex to ajcxnow0455-91-85 07:18:41* Test Item Value Reference Range Interpretation Comments Specimen site (test code = 4033837) Clean catch Color, UA (test code = 5778-6) Solange YELLOW Appearance, UA (test code = 5767-9) Clear Clear Specific gravity, UA (test code = 5811-5) 1.016 1.005-1.030 pH, UA (test code = 5803-2) 8.0 5.0-8.0 Protein, UA (test code = 32077-2) Negative Negative Glucose, UA (test code = 10348-3) Negative Negative Ketones, UA (test code = 2514-8) Negative Negative Bilirubin, UA (test code = 5770-3) Negative Negative Blood, UA (test code = 5794-3) Moderate Negative A Nitrite, UA (test code = 5802-4) Negative NEGATIVE Urobilinogen, UA (test code = 81460-4) 4.0 <2.0 E.U./dL Leukocyte esterase, UA (test code = 5799-2) Negative Negative WBC, UA (test code = 5821-4) 7 0- 5 /Hpf H RBC, UA (test code = 22672-8) 155 0- 5 /HPF H Bacteria, UA (test code = 94333-8) None seen None seen Yeast, UA (test code = 54426-4) None seen None Seen Yeast with pseudohyphae, UA (test code = 79487-0) None seen Lab Interpretation (test code = 04673-0) Abnormal [facility] MethodistType and olykbd9634-37-12 05:47:00* Test Item Value Reference Range Interpretation Comments ABO grouping (test code = 883-9) O Rh type (test code = 84711-8) POS Antibody screen (gel) (test code = 890-4) NEG [facility] MethodistComprehensive metabolic bxiqz6197-30-02 05:42:17* Test Item Value Reference Range Interpretation Comments Sodium (test code = 2951-2) 131 135- 148 mEq/L L Potassium (test code = 2823-3) 3.8 3.5- 5.0 mEq/L Chloride (test code = 2075-0) 93 99- 109 mEq/L L CO2 (test code = 2027-9) 26 24- 31 mEq/L Anion gap (test code = 94362-1) 12@ANIO 7- 15 mEq/L BUN (test code = 3094-0) 10 mg/dL 8-24 Creatinine (test code = 2160-0) 0.80 mg/dL 0.7-1.2 Glucose (test code = 2345-7) 93 mg/dL 65-99 Calcium (test code = 47472-6) 7.9 mg/dL 8.6-10.6 L Protein (test code = 2885-2) 6.9 g/dL 6.3-8.2 Albumin (test code = 1751-7) 3.7 g/dL 3.5-5 A/G ratio (test code = 1759-0) 1.16 0.70-3.80 Alkaline phosphatase (test code = 6768-6) 58 U/L 30-115 AST (test code = 1920-8) 62 U/L 15-46 H ALT (test code = 1742-6) 47 U/L 10-55 Total bilirubin (test code = 1974-2) 3.3 mg/dL 0.2-1.2 H Lab Interpretation (test code = 37551-3) Abnormal Vernon MethodistFerritin ublki6438-08-26 05:42:16* Test Item Value Reference Range Interpretation Comments Ferritin level (test code = 2276-4) 593 ng/mL 18-464 H Lab Interpretation (test code = 85814-2) Abnormal Vernon MethodistC-reactive ybtcgym0389-38-52 05:42:16* Test Item Value Reference Range Interpretation Comments CRP (test code = 1988-5) 7.32 mg/dL 0-1 H Lab Interpretation (test code = 57049-3) Abnormal Vernon SuvwkudgeCVJ8273-26-31 05:33:35* Test Item Value Reference Range Interpretation Comments LDH (test code = 57665-2) 312 U/L 300-600 Vernon PxktkpubzJupqfwfvpnvdl8794-40-82 05:33:35* Test Item Value Reference Range Interpretation Comments Triglycerides (test code = 2571-8) 69 mg/dL 0-149 Vernon VkvxaouojU-oybks7440-64-28 05:26:47* Test Item Value Reference Range Interpretation Comments D-dimer (test code = 10993-8) 3.97 0.00- 0.40 ug/mL FEU H When combined with low clinical probability, D-dimer results of less than 0.5 ug/ml FEU have a good negative predictive value in excluding PE or DVT. For D-dimer results greater than 0.5 ug/ml FEU further testing is indicated if PE or DVT is suspected clinically.Elevated D-dimer results have been reported in DVT, PE, and DIC cases and may indicate the presence of a clot. D-dimer results may be elevated due to old age, , inflammatory diseases, trauma, post-operative states, sepsis, and malignancies. Lab Interpretation (test code = 64137-1) Abnormal Vernon QvrtnghtxXjbsktfugc2218-72-04 05:25:45* Test Item Value Reference Range Interpretation Comments Fibrinogen (test code = 71101-7) 407.0 mg/dL 200-450 The reference range has changed starting 01/31/2010 @12:00pm [facility]CT Chest Wo Dincnhev6771-72-80 02:13:44Hm Interface, Radiology Results 03/29/2020 2:16 AM CDTEXAMINATION: CT CHEST WO CONTRASTCLINICAL HISTORY: 64 years Male PUITECHNIQUE: Multiple axial images of the chest were obtained without intravenous contrast. Sagittal and coronal computerized reformatted images were also obtained. CT imaging was performed with iterative reconstruction techniques and/or automated exposure control to reduce radiation dose. COMPARISON:None.IMPRESSION:Lungs and airways: No acute airspace disease or suspicious pulmonary nodules. Pleura: No pleural effusion or pneumothorax.Mediastinum and lymph nodes: No lymphadenopathy. Cardiovascular: T he heart size is normal. No pericardial effusion. The thoracic aorta is normal i n caliber.Upper abdomen: There is fatty infiltration of the liver. There is a ca lcified gallstones are present within the nondistended gallbladder. No perichole cystic inflammatory changes are identified.Bones: No suspicious osseous lesions. Other: None.SUMMARY:1.No acute abnormality identified in the abdomen or pelvis. [facility]-[id number] MethodistArterial blood qfo0789-11-01 00:29:28* Test Item Value Reference Range Interpretation Comments pH, arterial (test code = 2744-1) 7.45 7.35- 7.45 Units pCO2, arterial (test code = 2019-8) 40 35- 45 mmHg pO2, arterial (test code = 2703-7) 67 83- 108 mmHg L Bicarbonate, arterial (test code = 1960-4) 27.8 21.0- 28.0 mEq/L Base excess, arterial (test code = 1925-7) 4.0 -0.2 - 0.3 mEq-L H O2 saturation, arterial (test code = 2708-6) 94 % 95-98 L FiO2 (test code = 3150-0) 21.0 Total CO2 (test code = 8-9) 25 mEq/L O2 content (test code = 1828) 16.4 15.0- 23.0 VOL % Lab Interpretation (test code = 68337-2) Abnormal [facility] MethodistEC 12 liby0883-53-11 19:22:15* Test Item Value Reference Range Interpretation Comments Ventricular rate (test code = 253) 88 Atrial rate (test code = 255) 88 MS interval (test code = 266) 132 QRSD interval (test code = 260) 76 QT interval (test code = 264) 406 QTC interval (test code = 265) 491 P axis 1 (test code = 267) 35 QRS axis 1 (test code = 268) 3 T wave axis (test code = 270) 37 EKG impression (test code = 273) ^^^ Poor data quality , interpretation may be adversely affected-Normal sinus rhythm-Prolonged QT-Abnormal ECG-In automated comparison with ECG of 27-MAR-2020 17:46,-No significant change was found-Elect ronically Signed By Jefferson Milan MD ([id number]) on 03/28/2020 7:22:14 PM Vernon MethodistLactic acid level, SEPSIS - Now and repeat 2x every 3 hours 2020-03-28 14:25:57* Test Item Value Reference Range Interpretation Comments Lactic acid (test code = 81169-6) 1.7 mmol/L 0.5-2.2 [facility]Fps[facility]flktoHszmbnlo0187-67-38 10:08:03* Test Item Value Reference Range Interpretation Comments Troponin (test code = 80698-2) <0.006 0-0.04 In patients suspected of having a myocardial infarction, along with all other appropriate clinical measures and actions including ECG and other diagnostics as appropriate, measure Ultra TnI at 0 hrs and at 3 hrs.Myocardial infarction VERY LIKELYThe 0 hr TnI level is > 0.10 ng/mL Aroldo cardial infarction LIKELYThe 0 hr TnI level is > 0.04 ng/mL and 3 hr level is increased or decreased by at least 0.020 ng/mL Myocardi al infarction VERY UNLIKELYBoth the 0 hr and 3 hr TnI levels <= 0.04 ng/mL(within normal limits) OR 0 hr is > 0.04 ng/mL and 3 hr is increased OR decreased by less than 0.020 ng/mL [facility] QTYB2991-11-13 06:05:41Tiburcio Dumont MD 03/29/2020 7:38 AMCritical CarePerformed by: Tiburcio Dumont MDAuthorized by: Tiburcio Dumont MD Critical care provider statement: Critical care time (minutes): 35 Critical care was necessary to treat or prevent imminent or life-threatening deterioration of the following conditions: Sepsis and toxidrome Critical care was time spent personally by me on the following activities: Ordering and performing treatments and interventions, ordering and review of laboratory studies, ordering and review of radiographic studies, pulse oximetry, re-evaluation of patient's condition, review of old charts, development of treatment plan with patient or surrogate, discussions with consultants, discussions with primary provider, evaluation of patient's response to treatment, examination of patient, interpretation of cardiac output marcela urements and obtaining history from patient or surrogateDeTar [facility] Preliminary Interpretation - Not an Zwgvw9594-74-07 06:05:41[facility] HealthTiburcio krishnamurthy MD 03/29/2020 7:38 [facility] Preliminary Interpretation - Not an OrderPerformed by: Tiburcio Dumont MDAuthorized by: Tiburcio Dumont MD ECG reviewed by ED Physician in the absence of a logistics engineer: yes Interpretation: Interpretation: non-specific Rate: ECG rate: 88 ECG rate assessment: normal Rhythm: Rhythm: sinus rhythm Ectopy: Ectopy: none QRS: QRS axis: Normal QRS intervals: NormalConduction: Conduction: normal ST segments: ST segments: NormalT waves: T waves: normal Other findings: Other findings: prolonged qTc interval [facility] Methodunm cancer centerXR Knee 3 Vw Left 2020-03-27 18:53:30Hm Interface, Radiology Results 03/27/2020 6:56 PM CDTEXAMINATION: XR KNEE 3 VW LEFTCLINICAL HISTORY: traumaCOMPARISON: None.IMPRESSION:Single crosstable lateral film demonstrates no definite fracture or effusion.[facility]-[id number] MethodistAlcohol level, zdmnt0827-64-01 18:35:52* Test Item Value Reference Range Interpretation Comments Alcohol percent (test code = 5643-2) 0.37 % 0-0.08 H Normal None DetectedLegal Intoxication in [place] 80 mg/dL (0.08%) - Whole BloodToxic Concentration 200 mg/dL (0.2%)Potentially Fatal 350 - 500 mg/dL (0.35 - 0.5%) Lab Interpretation (test code = 66752-3) Abnormal Alan MethodistSedimentation ogic9060-56-44 18:27:22* Test Item Value Reference Range Interpretation Comments Sedimentation rate (test code = 88263-5) 13 1- 10 mm/hr H Lab Interpretation (test code = 25388-3) Abnormal Alan Valenzuela Coronavirus [id number] 17:01:00* Test Item Value Reference Range Interpretation Comments Novel Coronavirus 2019 Inhouse (test code = IRHRB41XE) Negative Negative Positive results are indicative of the presence vwDMHZ-EeH-1 RNA, clinical correlation with patient historyand other diagnostic information is necessary to determinepatient infection status. Positive results do not rule outbacterial infection or co-infection with other viruses. Negative results do not preclude SARS-CoV-2 infection andshould not be used as the sole basis for patient managementdecisions. Negative results must be combined with otherclinical observations, patient history, and epidemiologicalinformation. Detection of SARS-CoV-2 RNA may be affected bysample collection methods, storage conditions, and/or stageof infection. Viral RNA mutations, vaccinations, antiviraltherapeutics, antibiotics, chemotherapeutic orimmunosuppressant drugs have not been evaluated for effectson detection. Results are for the identification of SARS-CoV-2 RNA usingthe Ace M2000 System under the FDA Emergency UseAuthorization. The testing is performed by personneltrained in the procedures for the Ace M2000 moleculardiagnostic SARS-CoV-2 assay in vitro. BASIC METABOLIC [id number] 07:11:00* Test Item Value Reference Range Interpretation Comments SODIUM (test code = NA) 135 mmol/L 136-145 L POTASSIUM (test code = K) 3.6 MMOL/L 3.6-5.2 N CHLORIDE (test code = CL) 96 MMOL/L 98-110 L CARBON DIOXIDE (test code = CO2) 27 mEq/L 24-32 N GLUCOSE (test code = GLU) 87 mg/dL 70-110 N BLOOD UREA NITROGEN (test code = BUN) 17 mg/dL 7-18 N GLOMERULAR FILTRATION RATE (test code = GFR) >=60 max estimate >60 The estimated glomerular filtration rate is computed usingpatient race, age (>18), sex, and serum creatinine. If anyof the needed data elements are missing the Laboratory cannot compute an estimation of the glomerular filtration rate. CREATININE (test code = CREAT) 0.99 mg/dL 0.60-1.30 N CALCIUM (test code = CA) 7.8 mg/dL 8.6-10.3 L LACTIC DEHYDROGENASE(LDH)2020-03-21 07:11:00* Test Item Value Reference Range Interpretation Comments LACTIC DEHYDROGENASE(LDH) (test code = LDH) 308 UNITS/L 91-180 H [id number] 07:11:00* Test Item Value Reference Range Interpretation Comments FERRITIN (test code = JC) 293.0 ng/mL 24.0-336.0 N HIGH SENSITIVITY [id number] 07:11:00* Test Item Value Reference Range Interpretation Comments HIGH SENSITIVITY CRP (test code = CRPHS) 9.0 mg/L 0.0-1.0 H REFERENCE RANGE:Low: <1.0 mg/LAverage: 1.0-3.0 mg/LHigh: >3.0-10.0 mg/LIndeterminate: >10.0 mg/L [id number] 06:56:00* Test Item Value Reference Range Interpretation Comments D-DIMER (test code = DDIMER) 07498 ng/mLFEU 0-500 HH Critical Value reported toFirst Name: CHELSI Last Name: KAYLA PAREKH/3CRESULTS READ BACK AND VERIFIEDby LAVONNE, on 03/21/20, @ 0666.THE DDIMER METHOD IS USED IN THE EXCLUSION OF DEEP VEINTHROMBOSIS AND/OR PULMONARY EMBOLISM AND THE CLINICAL CUT-OFF VALUE FOR EXCLUSION (500 NG/ML FEU) OF THESE CONDITIONSIS VALIDATED BY THE BLOCK LAYER OF THE METHOD. A NEGATIVE DDIMER RESULT WHEN COMBINED WITH A CLINICALASSESSMENT OF LOW PRETEST PROBABILITY HAS BEEN SHOWN TO HAVEA HIGH NEGATIVE PREDICTIVE VALUE OF DVT OR PE. D-DIMER VALUES >500 ng/mL ARE NOT DIAGNOSTIC FOR DVT,PEOR DIC WITHOUT OTHER CONFIRMATORY TESTS AND APPROPRIATECLINICAL EVALUATIONS. PROCALCITONIN (PCT)2020-03-21 06:33:00* Test Item Value Reference Range Interpretation Comments PROCALCITONIN (PCT) (test code = PROCAL) < 0.05 ng/mL 0.00-0.50 N CBC W/AUTO [id number] 06:25:00* Test Item Value Reference Range Interpretation Comments WHITE BLOOD CELL (test code = WBC) 9.77 K/mm3 5.0-12.0 N RED BLOOD CELL (test code = RBC) 3.60 M/mm3 4.70-6.10 L HEMOGLOBIN (test code = HGB) 13.3 G/DL 14.0-18.0 L HEMATOCRIT (test code = HCT) 38.6 % 38.8-50.0 L MEAN CELL VOLUME (test code = MCV) 107 fL 80-94 H MEAN CELL HGB (test code = MCH) 36.9 PGM 27-31 H MEAN CELL HGB CONCENTRATION (test code = MCHC) 34.5 G/DL 33-37 N RED CELL DISTRIBUTION WIDTH (test code = RDW) 15.9 % 11.6-16. 2 N PLATELET COUNT (test code = PLT) 333 K/mm3 130-400 N MEAN PLATELET VOLUME (test code = MPV) 10.5 fl 7.4-10.4 H NEUTROPHIL % (test code = NT%) 43.3 % 43-65 N IMMATURE GRANULOCYTE % (test code = IG%) 0.7 % 0.0-2.0 N LYMPHOCYTE % (test code = LY%) 35.9 % 20.5-45.5 N MONOCYTE % (test code = MO%) 15.8 % 5.5-11.7 H EOSINOPHIL % (test code = EO%) 3.5 % 0.9-2.9 H BASOPHIL % (test code = BA%) 0.8 % 0.2-1.0 N NUCLEATED RBC % (test code = NRBC%) 1.2 % 0-1.0 H NEUTROPHIL # (test code = NT#) 4.23 K/mm3 2.2-4.8 N LYMPHOCYTE # (test code = LY#) 3.51 K/mm3 1.3-2.9 H MONOCYTE # (test code = MO#) 1.54 K/mm3 0.3-0.8 H EOSINOPHIL # (test code = EO#) 0.34 K/MM3 0.0-0.2 H BASOPHIL # (test code = BA#) 0.08 K/mm3 0.0-0.1 N BASIC METABOLIC [id number] 06:17:00* Test Item Value Reference Range Interpretation Comments SODIUM (test code = NA) 135 mmol/L 136-145 L POTASSIUM (test code = K) 3.6 MMOL/L 3.6-5.2 N CHLORIDE (test code = CL) 96 MMOL/L 98-110 L CARBON DIOXIDE (test code = CO2) 27 mEq/L 24-32 N GLUCOSE (test code = GLU) 87 mg/dL 70-110 N BLOOD UREA NITROGEN (test code = BUN) 17 mg/dL 7-18 N GLOMERULAR FILTRATION RATE (test code = GFR) >=60 max estimate >60 The estimated glomerular filtration rate is computed usingpatient race, age (>18), sex, and serum creatinine. If anyof the needed data elements are missing the Laboratory cannot compute an estimation of the glomerular filtration rate. CREATININE (test code = CREAT) 0.99 mg/dL 0.60-1.30 N CALCIUM (test code = CA) 7.8 mg/dL 8.6-10.3 L LACTIC DEHYDROGENASE(LDH)2020-03-21 06:17:00* Test Item Value Reference Range Interpretation Comments LACTIC DEHYDROGENASE(LDH) (test code = LDH) 308 UNITS/L 91-180 H [id number] 06:17:00* Test Item Value Reference Range Interpretation Comments FERRITIN (test code = JC) ng/mL 24.0-336.0 HIGH SENSITIVITY [id number] 06:17:00* Test Item Value Reference Range Interpretation Comments HIGH SENSITIVITY CRP (test code = CRPHS) 9.0 mg/L 0.0-1.0 H REFERENCE RANGE:Low: <1.0 mg/LAverage: 1.0-3.0 mg/LHigh: >3.0-10.0 mg/LIndeterminate: >10.0 mg/L BASIC METABOLIC [id number] 06:13:00* Test Item Value Reference Range Interpretation Comments SODIUM (test code = NA) mmol/L 136-145 POTASSIUM (test code = K) 3.6 MMOL/L 3.6-5.2 N CHLORIDE (test code = CL) MMOL/L 98-110 CARBON DIOXIDE (test code = CO2) mEq/L 24-32 GLUCOSE (test code = GLU) mg/dL 70-110 BLOOD UREA NITROGEN (test code = BUN) 17 mg/dL 7-18 N GLOMERULAR FILTRATION RATE (test code = GFR) >=60 max estimate >60 The estimated glomerular filtration rate is computed usingpatient race, age (>18), sex, and serum creatinine. If anyof the needed data elements are missing the Laboratory cannot compute an estimation of the glomerular filtration rate. CREATININE (test code = CREAT) 0.99 mg/dL 0.60-1.30 N CALCIUM (test code = CA) mg/dL 8.6-10.3 LACTIC DEHYDROGENASE(LDH)2020-03-21 06:13:00* Test Item Value Reference Range Interpretation Comments LACTIC DEHYDROGENASE(LDH) (test code = LDH) UNITS/L 91-180 [id number] 06:13:00* Test Item Value Reference Range Interpretation Comments FERRITIN (test code = JC) ng/mL 24.0-336.0 HIGH SENSITIVITY [id number] 06:13:00* Test Item Value Reference Range Interpretation Comments HIGH SENSITIVITY CRP (test code = CRPHS) mg/L 0.0-1.0 LACTIC [id number] 05:51:00* Test Item Value Reference Range Interpretation Comments LACTIC ACID (test code = LACT) 1.10 mmol/L 0.5-2.2 N COVID 19 Asymptomatic IH [id number] 19:04:00* Test Item Value Reference Range Interpretation Comments COVID 19 Asymptomatic IH AG (test code = COVNONPUIAG) POSITIVE Negative A Critical Value reported toFirst Name:MARI Francisco Name:DEVON/GIANNA READ BACK AND VERIFIEDby T.LAB.LN, on 03/19/20, @ 1904. [id number] 07:09:00* Test Item Value Reference Range Interpretation Comments ALCOHOL (test code = ALC) 72.0 mg/dl 0.0-80.0 N ~~~~~~~~~~~~~~~~~~~~~~~~~~~~~~~~~~~~~~~~~~~~~~~~~~ RESULTS ARE TO BE USED FOR MEDICAL PURPOSES ONLY.FOR LEGAL PURPOSES THE SPECIMEN MUST BE COLLECTED BY A CHAINOF CUSTODY. LEGAL TESTING IS NOT PERFORMED BY THIS FACILITY. ~~~~~~~~~~~~~~~~~~~~~~~~~~~~~~~~~~~~~~~~~~~~~~~~~~ URINALYSIS [id number] 23:13:00* Test Item Value Reference Range Interpretation Comments UA COLOR (test code = COLU) Yellow YELLOW UA APPEARANCE (test code = APPU) CLEAR CLEAR UA GLUCOSE DIPSTICK (test code = DGLUU) NEG MG/DL NEGATIVE UA BILIRUBIN DIPSTICK (test code = BILU) NEG NEGATIVE UA KETONE DIPSTICK (test code = KETU) NEG MG/DL NEGATIVE UA SPECIFIC GRAVITY (test code = SGU) 1.006 1.000-1.030 UA BLOOD DIPSTICK (test code = AKANKSHA) NEG NEGATIVE UA PH DIPSTICK (test code = HERNANDO) 6.0 4.5-8.5 UA PROTEIN DIPSTICK (test code = PROU) NEG MG/DL NEGATIVE UA UROBILINOGEN DIPSTICK (test code = URO) 3.0 EU/dL <=1.0 A UA NITRITE DIPSTICK (test code = MARGARET) NEG NEGATIVE UA LEUKOCYTE ESTERASE DIPSTICK (test code = LEUU) NEG NEGA TIVE UA WBC (test code = WBCU) 0-3 /HPF 0-3 UA RBC (test code = RBCU) 0-3 /HPF 0-3 UA BACTERIA (test code = BACU) NONE SEEN /HPF NONE SEEN UA SQUAMOUS CELLS (test code = SQU) RARE /HPF NONE-FEW UA HYALINE CAST (test code = HYALU) 5-10 /LPF NONE SEEN A UA MUCUS (test code = MUCU) MODERATE /LPF NONE-FEW A DRUGS OF ABUSE SCREEN [id number] 23:11:00* Test Item Value Reference Range Interpretation Comments UR COCAINE (test code = COCAU) NEGATIVE NEGATIVE UR METHAMPHETAMINE (test code = METHAMPHU) NEGATIVE NEGATIVE UR CANABINOIDS (test code = CANU) NEGATIVE NEGATIVE UR AMPHETAMINE (test code = AMPHU) NEGATIVE NEGATIVE UR BARBITURATE (test code = BARBQLU) NEGATIVE NEGATIVE UR BENZODIAZEPINE (test code = BENZU) POSITIVE NEGATIVE A METHADONE (test code = METHDU) NEGATIVE NEGATIVE PROPOXYPHENE SCREEN (test code = PROPXSQ) NEGATIVE NEGATIVE UR OPIATES QUAL (test code = OPIAQLU) NEGATIVE NEGATIVE OXYCODONE (test code = OXYCOD) NEGATIVE NEGATIVE UR TRICYCLICS (test code = TRICYCU) NEGATIVE NEGATIVE UR PHENCYCLIDINE (PCP) (test code = PHENCU) NEGATIVE NEGATIVE UR BUPRENORPHINE QUAL (test code = BUPRESCRT) NEGATIVE NEGATIVE URINALYSIS [id number] 23:06:00* Test Item Value Reference Range Interpretation Comments UA COLOR (test code = COLU) Yellow YELLOW UA APPEARANCE (test code = APPU) CLEAR CLEAR UA GLUCOSE DIPSTICK (test code = DGLUU) NEG MG/DL NEGATIVE UA BILIRUBIN DIPSTICK (test code = BILU) NEG NEGATIVE UA KETONE DIPSTICK (test code = KETU) NEG MG/DL NEGATIVE UA SPECIFIC GRAVITY (test code = SGU) 1.006 1.000-1.030 UA BLOOD DIPSTICK (test code = AKANKSHA) NEG NEGATIVE UA PH DIPSTICK (test code = HERNANDO) 6.0 4.5-8.5 UA PROTEIN DIPSTICK (test code = PROU) NEG MG/DL NEGATIVE UA UROBILINOGEN DIPSTICK (test code = URO) 3.0 EU/dL <=1.0 A UA NITRITE DIPSTICK (test code = MARGARET) NEG NEGATIVE UA LEUKOCYTE ESTERASE DIPSTICK (test code = LEUU) NEG NEGA TIVE COMPREHENSIVE METABOLIC [id number] 23:05:00* Test Item Value Reference Range Interpretation Comments SODIUM (test code = NA) 134 mmol/L 136-145 L POTASSIUM (test code = K) 3.0 MMOL/L 3.6-5.2 L CHLORIDE (test code = CL) 95 MMOL/L 98-110 L CARBON DIOXIDE (test code = CO2) 23 mEq/L 24-32 L GLUCOSE (test code = GLU) 91 mg/dL 70-110 N BLOOD UREA NITROGEN (test code = BUN) 10 mg/dL 7-18 N GLOMERULAR FILTRATION RATE (test code = GFR) >=60 max estimate >60 The estimated glomerular filtration rate is computed usingpatient race, age (>18), sex, and serum creatinine. If anyof the needed data elements are missing the Laboratory cannot compute an estimation of the glomerular filtration rate. CREATININE (test code = CREAT) 0.95 mg/dL 0.60-1.30 N TOTAL PROTEIN (test code = PROT) 7.8 g/dL 6.0-8.3 N ALBUMIN (test code = ALB) 4.1 g/dL 3.2-5.5 N CALCIUM (test code = CA) 7.5 mg/dL 8.6-10.3 L BILIRUBIN TOTAL (test code = BILT) 2.7 mg/dL 0.2-1.0 H H-kuhhbj-u-benzoquinone imine (NAPQI), a metabolite ofacetaminophen (paracetamol), may generate erroneously lowresults in samples for patients that have taken toxic dosesof acetaminophen (paracetamol). SGOT/AST (test code = AST) 166 UNITS/L 10-42 H SGPT/ALT (test code = ALT) 84 UNITS/L 10-40 H ALKALINE PHOSPHATASE (test code = ALKP) 50 UNITS/L 38-126 N [id number] 23:05:00* Test Item Value Reference Range Interpretation Comments ACETAMINOPHEN (test code = ACET) < 10.0 ug/mL 10.0-25.0 L [id number] 23:05:00* Test Item Value Reference Range Interpretation Comments SALICYLATE (test code = EMILY) < 4.0 mg/dL 0.0-30.0 N [id number] 23:05:00* Test Item Value Reference Range Interpretation Comments ALCOHOL (test code = ALC) 249.0 mg/dl 0.0-80.0 H ~~~~~~~~~~~~~~~~~~~~~~~~~~~~~~~~~~~~~~~~~~~~~~~~~~ RESULTS ARE TO BE USED FOR MEDICAL PURPOSES ONLY.FOR LEGAL PURPOSES THE SPECIMEN MUST BE COLLECTED BY A CHAINOF CUSTODY. LEGAL TESTING IS NOT PERFORMED BY THIS FACILITY. ~~~~~~~~~~~~~~~~~~~~~~~~~~~~~~~~~~~~~~~~~~~~~~~~~~ COMPREHENSIVE METABOLIC [id number] 22:56:00* Test Item Value Reference Range Interpretation Comments SODIUM (test code = NA) mmol/L 136-145 POTASSIUM (test code = K) 3.0 MMOL/L 3.6-5.2 L CHLORIDE (test code = CL) MMOL/L 98-110 CARBON DIOXIDE (test code = CO2) mEq/L 24-32 GLUCOSE (test code = GLU) mg/dL 70-110 BLOOD UREA NITROGEN (test code = BUN) mg/dL 7-18 GLOMERULAR FILTRATION RATE (test code = GFR) >60 CREATININE (test code = CREAT) mg/dL 0.60-1.30 TOTAL PROTEIN (test code = PROT) g/dL 6.0-8.3 ALBUMIN (test code = ALB) g/dL 3.2-5.5 CALCIUM (test code = CA) mg/dL 8.6-10.3 BILIRUBIN TOTAL (test code = BILT) mg/dL 0.2-1.0 SGOT/AST (test code = AST) UNITS/L 10-42 SGPT/ALT (test code = ALT) UNITS/L 10-40 ALKALINE PHOSPHATASE (test code = ALKP) UNITS/L 38-126 [id number] 22:56:00* Test Item Value Reference Range Interpretation Comments ACETAMINOPHEN (test code = ACET) ug/mL 10.0-25.0 [id number] 22:56:00* Test Item Value Reference Range Interpretation Comments SALICYLATE (test code = EMILY) mg/dL 0.0-30.0 [id number] 22:56:00* Test Item Value Reference Range Interpretation Comments ALCOHOL (test code = ALC) mg/dl 0.0-80.0 COMPREHENSIVE METABOLIC [id number] 22:56:00* Test Item Value Reference Range Interpretation Comments SODIUM (test code = NA) 134 mmol/L 136-145 L POTASSIUM (test code = K) 3.0 MMOL/L 3.6-5.2 L CHLORIDE (test code = CL) 95 MMOL/L 98-110 L CARBON DIOXIDE (test code = CO2) 23 mEq/L 24-32 L GLUCOSE (test code = GLU) 91 mg/dL 70-110 N BLOOD UREA NITROGEN (test code = BUN) mg/dL 7-18 GLOMERULAR FILTRATION RATE (test code = GFR) >60 CREATININE (test code = CREAT) mg/dL 0.60-1.30 TOTAL PROTEIN (test code = PROT) g/dL 6.0-8.3 ALBUMIN (test code = ALB) g/dL 3.2-5.5 CALCIUM (test code = CA) 7.5 mg/dL 8.6-10.3 L BILIRUBIN TOTAL (test code = BILT) mg/dL 0.2-1.0 SGOT/AST (test code = AST) UNITS/L 10-42 SGPT/ALT (test code = ALT) UNITS/L 10-40 ALKALINE PHOSPHATASE (test code = ALKP) UNITS/L 38-126 [id number] 22:56:00* Test Item Value Reference Range Interpretation Comments ACETAMINOPHEN (test code = ACET) ug/mL 10.0-25.0 [id number] 22:56:00* Test Item Value Reference Range Interpretation Comments SALICYLATE (test code = EMILY) mg/dL 0.0-30.0 [id number] 22:56:00* Test Item Value Reference Range Interpretation Comments ALCOHOL (test code = ALC) mg/dl 0.0-80.0 CBC W/AUTO [id number] 22:35:00* Test Item Value Reference Range Interpretation Comments WHITE BLOOD CELL (test code = WBC) 10.96 K/mm3 5.0-12.0 N RED BLOOD CELL (test code = RBC) 3.79 M/mm3 4.70-6.10 L HEMOGLOBIN (test code = HGB) 13.9 G/DL 14.0-18.0 L HEMATOCRIT (test code = HCT) 38.8 % 37.0-49.0 N MEAN CELL VOLUME (test code = MCV) 102 fL 80-94 H MEAN CELL HGB (test code = MCH) 36.7 PGM 27-31 H MEAN CELL HGB CONCENTRATION (test code = MCHC) 35.8 G/DL 33-37 N RED CELL DISTRIBUTION WIDTH (test code = RDW) 14.7 % 11.6-16. 2 N PLATELET COUNT (test code = PLT) 277 K/mm3 130-400 N MEAN PLATELET VOLUME (test code = MPV) 10.2 fl 7.4-10.4 N NEUTROPHIL % (test code = NT%) 44.5 % 43-65 N IMMATURE GRANULOCYTE % (test code = IG%) 0.5 % 0.0-2.0 N LYMPHOCYTE % (test code = LY%) 33.9 % 20.5-45.5 N MONOCYTE % (test code = MO%) 17.7 % 5.5-11.7 H EOSINOPHIL % (test code = EO%) 2.5 % 0.9-2.9 N BASOPHIL % (test code = BA%) 0.9 % 0.2-1.0 N NUCLEATED RBC % (test code = NRBC%) 2.9 % 0-1.0 H NEUTROPHIL # (test code = NT#) 4.87 K/mm3 2.2-4.8 H LYMPHOCYTE # (test code = LY#) 3.72 K/mm3 1.3-2.9 H MONOCYTE # (test code = MO#) 1.94 K/mm3 0.3-0.8 H EOSINOPHIL # (test code = EO#) 0.27 K/MM3 0.0-0.2 H BASOPHIL # (test code = BA#) 0.10 K/mm3 0.0-0.1 N [id number] 16:13:00* Test Item Value Reference Range Interpretation Comments ETHANOL (BEAKER) (test code = 400) < mg/dL <=10 Consulting Services Manager ID - ROBERTCOMPREHENSIVE METABOLIC [id number] 15:44:00* Test Item Value Reference Range Interpretation Comments TOTAL PROTEIN (BEAKER) (test code = 770) 7.9 gm/dL 6.0-8.5 ALBUMIN (BEAKER) (test code = 1145) 4.2 g/dL 3.5-5.0 ALKALINE PHOSPHATASE (BEAKER) (test code = 346) 57 U/L 30-115 BILIRUBIN TOTAL (BEAKER) (test code = 377) 2.3 mg/dL 0.1-1.2 H SODIUM (BEAKER) (test code = 381) 139 meq/L 135-148 POTASSIUM (BEAKER) (test code = 379) 3.4 meq/L 3.6-5.5 L CHLORIDE (BEAKER) (test code = 382) 98 meq/L 98-106 CO2 (BEAKER) (test code = 355) 26 meq/L 20-29 BLOOD UREA NITROGEN (BEAKER) (test code = 354) 8 mg/dL 10-26 L CREATININE (BEAKER) (test code = 358) 0.94 mg/dL 0.50-1.20 GLUCOSE RANDOM (BEAKER) (test code = 652) 97 mg/dL 70-110 CALCIUM (BEAKER) (test code = 697) 7.8 mg/dL 8.5-10.5 L AST (SGOT) (BEAKER) (test code = 353) 153 U/L 5-40 H ALT (SGPT) (BEAKER) (test code = 347) 92 U/L 5-50 H EGFR (BEAKER) (test code = 1092) INSUFFICIENT CLINICAL DATA TO CALCULATE ESTIMATED GFR. Consulting Services Manager ID - [id number] slightly ictericCBC W/PLT COUNT & AUTO DIFFERENTIAL 2020-03-16 15:29:00* Test Item Value Reference Range Interpretation Comments WHITE BLOOD CELL COUNT (BEAKER) (test code = 775) 7.6 K/ L 4.0- 10.0 RED BLOOD CELL COUNT (BEAKER) (test code = 761) 3.78 M/ L 4.20-5 .80 L HEMOGLOBIN (BEAKER) (test code = 410) 13.9 GM/DL 13.0-16.8 HEMATOCRIT (BEAKER) (test code = 411) 38.3 % 36.0-50.0 MEAN CORPUSCULAR VOLUME (BEAKER) (test code = 753) 101.3 fL 82. 0-99.0 H MEAN CORPUSCULAR HEMOGLOBIN (BEAKER) (test code = 751) 36.8 pg 27.0-33.0 H MEAN CORPUSCULAR HEMOGLOBIN CONC (BEAKER) (test code = 752) 36.3 GM/DL 32.0-36.0 H RED CELL DISTRIBUTION WIDTH (BEAKER) (test code = 412) 14.7 % 12.0-15.0 PLATELET COUNT (BEAKER) (test code = 756) 262 K/CU MM 150-430 MEAN PLATELET VOLUME (BEAKER) (test code = 754) 9.8 fL 6.0-11 .5 NUCLEATED RED BLOOD CELLS (BEAKER) (test code = 413) 2 /100 WBC 0 -0 H NEUTROPHILS RELATIVE PERCENT (BEAKER) (test code = 429) 50 % LYMPHOCYTES RELATIVE PERCENT (BEAKER) (test code = 430) 30 % MONOCYTES RELATIVE PERCENT (BEAKER) (test code = 431) 15 % EOSINOPHILS RELATIVE PERCENT (BEAKER) (test code = 432) 3 % BASOPHILS RELATIVE PERCENT (BEAKER) (test code = 437) 1 % NEUTROPHILS ABSOLUTE COUNT (BEAKER) (test code = 670) 3.78 K/ L 1.80-8.00 LYMPHOCYTES ABSOLUTE COUNT (BEAKER) (test code = 414) 2.26 K/ L 1.48-4.50 MONOCYTES ABSOLUTE COUNT (BEAKER) (test code = 415) 1.17 K/ L 0. 00-1.30 EOSINOPHILS ABSOLUTE COUNT (BEAKER) (test code = 416) 0.25 K/ L 0.00-0.50 BASOPHILS ABSOLUTE COUNT (BEAKER) (test code = 417) 0.08 K/ L 0. 00-0.20 IMMATURE GRANULOCYTES-RELATIVE PERCENT (BEAKER) (test code = 2801) 1 % 0-[address], BRAIN, WITHOUT [id number] 15:07:00Reason for exam:->ALCOHOL PROBLEMpt hx of ETOH abuse, last drink yesterday, c/o tremors, nausea, vomiting, also fell yesterday. Reason for exam:->FALLWhat is the patient's sedation requirement?->No SedationFINAL REPORT CT, BRAIN, WITHOUT CONTRAST INDICATION: Head trauma, minor, normal mental status (Age 21- 64y)ALCOHOL PROBLEMFALL TECHNIQUE: Noncontrast axial imaging was obtained from [...] pathology, MR examination is recommended for further characteri zation. Signed: Felicitas Medina MDReport Verified Date/Time: 03/16/2020 15:07:36 brain without IV [id number] 15:07:00Interface, External Ris In - 03/16/2020 3:[address], BRAIN, WITHOUT CONTRAST INDICATION: Head trauma, minor, normal mental status (Age 19- 66y)ALCOHOL PROBLEMFALL TECHNIQUE: Noncontrast axial imaging was obtained from [...] foci of hypoattenuation within the periventricular and subcor tical white matter are a nonspecific finding commonly attributed to chronic smal l vessel ischemic disease. Osseous structures: No fracture. No suspicious lesion . Paranasal sinuses and mastoid air cells: No evidence of sinusitis. Mastoids ar e clear. Orbital contents: Globes are intact. IMPRESSION: No acute intracranial hemorrhage. If there is persistent clinical concern for intracranial pathology, MR examination is recommended for further characterization. Signed: Geneva Medina MDReport Verified Date/Time: 03/16/2020 15:07:36 [facility] BASIC METABOLIC [id number] 17:49:00* Test Item Value Reference Range Interpretation Comments SODIUM (test code = NA) 139 mmol/L 136-145 N POTASSIUM (test code = K) 3.2 MMOL/L 3.6-5.2 L CHLORIDE (test code = CL) 102 MMOL/L 98-110 N CARBON DIOXIDE (test code = CO2) 23 mEq/L 24-32 L GLUCOSE (test code = GLU) 93 mg/dL 70-110 N BLOOD UREA NITROGEN (test code = BUN) 7 mg/dL 7-18 N GLOMERULAR FILTRATION RATE (test code = GFR) >=60 max estimate >60 The estimated glomerular filtration rate is computed usingpatient race, age (>18), sex, and serum creatinine. If anyof the needed data elements are missing the Laboratory cannot compute an estimation of the glomerular filtration rate. CREATININE (test code = CREAT) 0.91 mg/dL 0.60-1.30 N CALCIUM (test code = CA) 8.3 mg/dL 8.6-10.3 L LIVER FUNCTION [id number] 17:49:00* Test Item Value Reference Range Interpretation Comments TOTAL PROTEIN (test code = PROT) 8.0 g/dL 6.0-8.3 N ALBUMIN (test code = ALB) 4.1 g/dL 3.2-5.5 N BILIRUBIN TOTAL (test code = BILT) 0.9 mg/dL 0.2-1.0 N V-lpaglk-u-benzoquinone imine (NAPQI), a metabolite ofacetaminophen (paracetamol), may generate erroneously lowresults in samples for patients that have taken toxic dosesof acetaminophen (paracetamol). BILIRUBIN DIRECT (test code = BILD) 0.3 mg/dL 0.0-0.2 H H-hfhyka-e-benzoquinone imine (NAPQI), a metabolite ofacetaminophen (paracetamol), may generate erroneously lowresults in samples for patients that have taken toxic dosesof acetaminophen (paracetamol). BILIRUBIN INDIRECT (test code = BILIND) 0.6 mg/dL SGOT/AST (test code = AST) 146 UNITS/L 10-42 H SGPT/ALT (test code = ALT) 110 UNITS/L 10-40 H ALKALINE PHOSPHATASE (test code = ALKP) 52 UNITS/L 38-126 N [id number] 17:49:00* Test Item Value Reference Range Interpretation Comments LIPASE (test code = LIP) 36 UNITS/L 22-151 N [id number] 17:49:00* Test Item Value Reference Range Interpretation Comments ALCOHOL (test code = ALC) 304.9 mg/dl 0.0-80.0 H ~~~~~~~~~~~~~~~~~~~~~~~~~~~~~~~~~~~~~~~~~~~~~~~~~~ RESULTS ARE TO BE USED FOR MEDICAL PURPOSES ONLY.FOR LEGAL PURPOSES THE SPECIMEN MUST BE COLLECTED BY A CHAINOF CUSTODY. LEGAL TESTING IS NOT PERFORMED BY THIS FACILITY. ~~~~~~~~~~~~~~~~~~~~~~~~~~~~~~~~~~~~~~~~~~~~~~~~~~ BASIC METABOLIC [id number] 17:48:00* Test Item Value Reference Range Interpretation Comments SODIUM (test code = NA) 139 mmol/L 136-145 N POTASSIUM (test code = K) 3.2 MMOL/L 3.6-5.2 L CHLORIDE (test code = CL) 102 MMOL/L 98-110 N CARBON DIOXIDE (test code = CO2) 23 mEq/L 24-32 L GLUCOSE (test code = GLU) 93 mg/dL 70-110 N BLOOD UREA NITROGEN (test code = BUN) 7 mg/dL 7-18 N GLOMERULAR FILTRATION RATE (test code = GFR) >=60 max estimate >60 The estimated glomerular filtration rate is computed usingpatient race, age (>18), sex, and serum creatinine. If anyof the needed data elements are missing the Laboratory cannot compute an estimation of the glomerular filtration rate. CREATININE (test code = CREAT) 0.91 mg/dL 0.60-1.30 N CALCIUM (test code = CA) 8.3 mg/dL 8.6-10.3 L LIVER FUNCTION [id number] 17:48:00* Test Item Value Reference Range Interpretation Comments TOTAL PROTEIN (test code = PROT) g/dL 6.0-8.3 ALBUMIN (test code = ALB) g/dL 3.2-5.5 BILIRUBIN TOTAL (test code = BILT) mg/dL 0.2-1.0 BILIRUBIN DIRECT (test code = BILD) mg/dL 0.0-0.2 SGOT/AST (test code = AST) UNITS/L 10-42 SGPT/ALT (test code = ALT) UNITS/L 10-40 ALKALINE PHOSPHATASE (test code = ALKP) UNITS/L 38-126 [id number] 17:48:00* Test Item Value Reference Range Interpretation Comments LIPASE (test code = LIP) UNITS/L 22-151 [id number] 17:48:00* Test Item Value Reference Range Interpretation Comments ALCOHOL (test code = ALC) mg/dl 0.0-80.0 BASIC METABOLIC [id number] 17:36:00* Test Item Value Reference Range Interpretation Comments SODIUM (test code = NA) mmol/L 136-145 POTASSIUM (test code = K) 3.2 MMOL/L 3.6-5.2 L CHLORIDE (test code = CL) MMOL/L 98-110 CARBON DIOXIDE (test code = CO2) mEq/L 24-32 GLUCOSE (test code = GLU) mg/dL 70-110 BLOOD UREA NITROGEN (test code = BUN) mg/dL 7-18 GLOMERULAR FILTRATION RATE (test code = GFR) >60 CREATININE (test code = CREAT) mg/dL 0.60-1.30 CALCIUM (test code = CA) mg/dL 8.6-10.3 LIVER FUNCTION [id number] 17:36:00* Test Item Value Reference Range Interpretation Comments TOTAL PROTEIN (test code = PROT) g/dL 6.0-8.3 ALBUMIN (test code = ALB) g/dL 3.2-5.5 BILIRUBIN TOTAL (test code = BILT) mg/dL 0.2-1.0 BILIRUBIN DIRECT (test code = BILD) mg/dL 0.0-0.2 SGOT/AST (test code = AST) UNITS/L 10-42 SGPT/ALT (test code = ALT) UNITS/L 10-40 ALKALINE PHOSPHATASE (test code = ALKP) UNITS/L 38-126 [id number] 17:36:00* Test Item Value Reference Range Interpretation Comments LIPASE (test code = LIP) UNITS/L 22-151 [id number] 17:36:00* Test Item Value Reference Range Interpretation Comments ALCOHOL (test code = ALC) mg/dl 0.0-80.0 BASIC METABOLIC [id number] 17:36:00* Test Item Value Reference Range Interpretation Comments SODIUM (test code = NA) 139 mmol/L 136-145 N POTASSIUM (test code = K) 3.2 MMOL/L 3.6-5.2 L CHLORIDE (test code = CL) 102 MMOL/L 98-110 N CARBON DIOXIDE (test code = CO2) 23 mEq/L 24-32 L GLUCOSE (test code = GLU) 93 mg/dL 70-110 N BLOOD UREA NITROGEN (test code = BUN) mg/dL 7-18 GLOMERULAR FILTRATION RATE (test code = GFR) >60 CREATININE (test code = CREAT) mg/dL 0.60-1.30 CALCIUM (test code = CA) 8.3 mg/dL 8.6-10.3 L LIVER FUNCTION [id number] 17:36:00* Test Item Value Reference Range Interpretation Comments TOTAL PROTEIN (test code = PROT) g/dL 6.0-8.3 ALBUMIN (test code = ALB) g/dL 3.2-5.5 BILIRUBIN TOTAL (test code = BILT) mg/dL 0.2-1.0 BILIRUBIN DIRECT (test code = BILD) mg/dL 0.0-0.2 SGOT/AST (test code = AST) UNITS/L 10-42 SGPT/ALT (test code = ALT) UNITS/L 10-40 ALKALINE PHOSPHATASE (test code = ALKP) UNITS/L 38-126 [id number] 17:36:00* Test Item Value Reference Range Interpretation Comments LIPASE (test code = LIP) UNITS/L 22-151 [id number] 17:36:00* Test Item Value Reference Range Interpretation Comments ALCOHOL (test code = ALC) mg/dl 0.0-80.0 - CT ABD PELVIS [id number] 17:22:00Patient Name: BILL BELTRAN Unit No: [id number] EXAMS: CPT: [id number] CT ABD PELVIS W/CONT 06590 CT CHEST, ABDOMEN PELVIS WITH CONTRAST: HISTORY: Fall, ethanol, loss of consciousness COMPARISON: None available CONTRAST: Isovue-300, 100 mL IV FINDINGS/CHEST: No hilar or mediastinal mass or lymphadenopathy is seen. No mediastinal hemorrhage is noted. The heart is normal in size. The central tracheobronchial tree is clear. No pleural masses, effusions, or hemorrhage is noted. There is no pneumothorax.. Linear atelectasis is noted in the left lung base. The lungs are otherwise clear. The aorta and pulmonary arteries are normal.There is no evidence of pulmonary embolism or aortic dissection. FINDINGS/ABDOMEN/PELVIS: Diffuse fatty infiltration of the liver. No focal hepatic lesion is seen. The spleen is absent, perhaps surgically removed. There is a 2.9 cm left renal cyst. The kidneys are otherwise normal. No adrenal abnormality. The pancreas is unremarkable. Several gallstones are present. There is no biliary dilatation. No abdominal or retroperitoneal mass, lymphadenopathy, or fluid collection is seen in the abdomen or pelvis. Specifically, no hemorrhage is noted. No bowel dilatation or bowel wall thickening is seen. No free intraperitoneal air or infla mmatory process is identified. The abdominal aorta and its major b ranches are within normal limits. No hernias are noted. SKELETAL FINDINGS: No acute traumatic or aggressive [place] lesion. Mild degenerative changes are present in the thoracic and lumb ar spine. Name: BILL BELTRAN [facility] [place] Phys: Eliezer Singh MD [address] [facility] : 1955 Age: 64 Sex: M Murali Rodríguez Loc: T.ERS Exam Date: 03/11/2020 Status: REG ER PH: FAX: PAGE 1 Signed Report (CONTINUED) Patient Na me: BELTRANBILL Samuel Unit No: [id number] EXAMS: CPT: [id number] CT ABD PELVIS W/[place] O[place] [address] <Continued> IMPRESSION: No acute traumatic abnormality noted. A 2.9 cm left renal cyst. Fatty infiltration of the liver. Absent spleen. Gallstones. DLP: 756 mGy*cm One or more of the following dose reduction techniques were used: Automated exposure control, adjustment of the SMA and/or KV according to the patient size, and/or utilization of degenerative reconstruction technique. at 1722 Reported and signed by: Lokesh Ortega MD CC: Eliezer Diallo MD Technologist: Edyta Ochoa CTDI: 18.88 DLP: 1874.83Trscr Dt/Tm: 03/11/2020 (1722) by:[email or web address] Orig Print D/T: S: 03/11/2020 (172) BATCH NO: N/A Name: BILL BELTRAN [facility] [place] Phys: Eliezer Singh MD [address] [facility] : 1955 Age: 64 Sex: M [place] Loc: T.ERS Exam Date: 03/11/2020 Status: REG ER PH: FAX: PAGE 2 Signed Report - CT CHEST [id number] 17:22:00Patient Name: ARCADIOBILL Samuel Unit No: [id number] EXAMS: CPT: [id number] CT CHEST W/CONTRAST 980[address] CT CHEST, ABDOMEN PELVIS WITH CONTRAST: HISTORY: Fall, ethanol, loss of consciousness COMPARISON: None available CONTRAST: Isovue-300, 100 mL IV FINDINGS/CHEST: No hilar or mediastinal mass or lymphadenopathy is seen. No mediastinal hemorrhage is noted. The heart is normal in size. The central tracheobronchial tree is clear. No pleural masses, effusions, or hemorrhage is noted. There is no pneumothorax.. Linear atelectasis is noted in the left lung base. The lungs are otherwise clear. The aorta and pulmonary arteries are normal.There is no evidence of pulmonary embolism or aortic dissection. FINDINGS/ABDOMEN/PELVIS: Diffuse fatty infiltration of the liver. No focal hepatic lesion is seen. The spleen is absent, perhaps surgically removed. There is a 2.9 cm left renal cyst. The kidneys are otherwise normal. No adrenal abnormality. The pancreas is unremarkable. Several gallstones are present. There is no biliary dilatation. No abdominal or retroperitoneal mass, lymphadenopathy, or fluid collection is seen in the abdomen or pelvis. Specifically, no hemorrhage is noted. No bowel dilatation or bowel wall thickening is seen. No free intraperitoneal air or infla mmatory process is identified. The abdominal aorta and its major b ranches are within normal limits. No hernias are noted. SKELETAL FINDINGS: No acute traumatic or aggressive [place] lesion. Mild degenerative changes are present in the thoracic and lumb ar spine. Name: BILL BELTRAN [facility] [place] Phys: Eliezer Singh MD [address] [facility] : 1955 Age: 64 Sex: Murali Arrieta Loc: T[facility] Exam Date: 03/11/2020 Status: REG ER PH: FAX: PAGE 1 Signed Report (CONTINUED) Patient Na me: BILL BELTRAN Unit No: [id number] EXAMS: CPT: [id number] CT CHEST W/CONTRA [place] [address] <Continued> IMPRESSION: No acute traumatic abnormality noted. A 2.9 cm left renal cyst. Fatty infiltration of the liver. Absent spleen. Gallstones. DLP: 756 mGy*cm One or more of the following dose reduction techniques were used: Automated exposure control, adjustment of the SMA and/or KV according to the patient size, and/or utilization of degenerative reconstruction technique. at 1722 Reported and signed by: Lokesh Ortega MD CC: Eliezer Diallo MD Technologist: Edyta Ochoa CTDI: 18.88 DLP: 1874.83Trscr Dt/Tm: 03/11/2020 (1722) by:[email or web address] Orig Print D/T: S: 03/11/2020 (1727) BATCH NO: N/A Name: BILL BELTRAN [facility] [place] Phys: Eliezer Singh MD [address] [facility] : 1955 Age: 64 Sex: M [place] Loc: T.ERS Exam Date: 03/11/2020 Status: REG ER PH: FAX: PAGE 2 Signed Report PROTHROMBIN [id number] 17:17:00* Test Item Value Reference Range Interpretation Comments PROTHROMBIN TIME PATIENT (test code = PTP) 11.8 SECONDS 9.5-12.9 N INTERNATIONAL NORMAL RATIO (test code = INR) 0.9 0.85-1.15 N The INR is to be used only for monitoring ORAL ANTICOAGULANTTHERAPY. Indication INR Value1. Prophylaxis/treatment of: Venous Thrombosis, Pulmonary Embolism 2.0 - 3.02. Prevention of systemic embolism from: Tissue heart valves 2.0 - 3.0 Acute myocardial infarction (to present systemic embolism)* 2.0 - 3.0 Valvular heart disease 2.0 - 3.0 Atrial fibrillation 2.0 - 3.03. Mechanical prosthetic valves (high risk) 2.5 - 3.5 * If oral anticoagulant therapy is elected to preventrecurrent myocardial infarction, an INR of 2.5-3.5 isrecommended, consistent with Food and Drug Administrationrecommendations. CBC W/AUTO [id number] 17:14:00* Test Item Value Reference Range Interpretation Comments WHITE BLOOD CELL (test code = WBC) 8.82 K/mm3 5.0-12.0 N RED BLOOD CELL (test code = RBC) 4.01 M/mm3 4.70-6.10 L HEMOGLOBIN (test code = HGB) 14.5 G/DL 14.0-18.0 N HEMATOCRIT (test code = HCT) 41.3 % 37.0-49.0 N MEAN CELL VOLUME (test code = MCV) 103 fL 80-94 H MEAN CELL HGB (test code = MCH) 36.2 PGM 27-31 H MEAN CELL HGB CONCENTRATION (test code = MCHC) 35.1 G/DL 33-37 N RED CELL DISTRIBUTION WIDTH (test code = RDW) 15.1 % 11.6-16. 2 N PLATELET COUNT (test code = PLT) 223 K/mm3 130-400 N MEAN PLATELET VOLUME (test code = MPV) 10.1 fl 7.4-10.4 N NEUTROPHIL % (test code = NT%) 47.1 % 43-65 N IMMATURE GRANULOCYTE % (test code = IG%) 0.5 % 0.0-2.0 N LYMPHOCYTE % (test code = LY%) 31.4 % 20.5-45.5 N MONOCYTE % (test code = MO%) 17.6 % 5.5-11.7 H EOSINOPHIL % (test code = EO%) 2.6 % 0.9-2.9 N BASOPHIL % (test code = BA%) 0.8 % 0.2-1.0 N NUCLEATED RBC % (test code = NRBC%) 0.0 % 0-1.0 N NEUTROPHIL # (test code = NT#) 4.16 K/mm3 2.2-4.8 N LYMPHOCYTE # (test code = LY#) 2.77 K/mm3 1.3-2.9 N MONOCYTE # (test code = MO#) 1.55 K/mm3 0.3-0.8 H EOSINOPHIL # (test code = EO#) 0.23 K/MM3 0.0-0.2 H BASOPHIL # (test code = BA#) 0.07 K/mm3 0.0-0.1 N TROPONIN I [id number] 17:13:00* Test Item Value Reference Range Interpretation Comments TROPONIN I RAPID (test code = TROPIRAP) 0.00 ng/mL 0.00-0.08 N ISTAT TROPONIN I CRITERIA0.00-0.08 ng/mL - Negative>0.08 ng/mL - Positive The use of serial sampling and testing protocol is arecommended practice.An elevated troponin level alone is often not sufficient fordiagnosis of myocardial infarction. Troponin results obtained by different assays may vary.Evaluation of the extent of myocardial damage based onincrease of troponin would be valid only if similarmethodology is used. - CT C-SPINE W/O [id number] 17:04:00Patient Name: BILL BELTRAN Unit No: [id number] EXAMS: CPT: [id number] CT C-SPINE W/O CONT 72544 CT SCAN OF THE CERVICAL SPINE WITHOUT CONTRAST: COMPARISON: None available CLINICAL HISTORY: Fall. Neck Pain. Contrast: IV-None. Oral-None. DLP: 584 mGy/cm. FINDINGS: Multilevel disc space narrowing, osteophytosis and hypertrophic facet changes seen. Straightening of the cervical spine noted. No prevertebral soft tissue swelling is seen. No acute fracture is seen. No bony destructive lesions seen. IMPRESSION: Degenerative change. Straightening of the cervical spine which can be seen secondary to patient position, muscular spasm, etc. COMMENT: CT radiation dose optimization is achieved for this examination by one or more of the following dose reduction techniques-automated exposure control, adjustment of the mA and/or KV according to patient size, and/or utilization of iterative reconstruction technique. at 1704 Reported and signed by: Chaka Selby MD CC: Eliezer Diallo MD Technologist: Edyta Ochoa CTDI: 20.58 DLP: 1373.79Trscr Dt/Tm: 03/11/2020 (1704) by:Gifty Orig Print D/T: S: 03/11/2020 (7273) BATCH NO: N/A Name: BILL BELTRAN [facility] [place] Phys: Eliezer Singh MD [address] [facility] : 1955 Age: 64 [place]: [place] [facility] Exam Date: 03/11/2020 Status: REG ER PH: FAX: PAGE 1 Signed Report - CT HEAD/BRAIN W/O [id number] 17:00:00Patient Name: BILL BELTRAN Unit No: [id number] EXAMS: CPT: [id number] CT HEAD/BRAIN W/O CONT 81172 CT HEAD WITHOUT CONTRAST: COMPARISON: None available CLINICAL HISTORY: Fall. Headache. Contrast: IV-None. Oral-None. DLP: 789 mGy/cm. FINDINGS: No acute intracranial hemorrhage was visualized. Fernandes-white differentiation is intact. No midline shift is present. No hydrocephalus is seen. Cerebral atrophy is seen. Hypodensity is seen within the white matter. IMPRESSION: Nonspecific white matter changes. Given patient's age, small vessel ischemic disease should be considered Cerebral atrophy. COMMENT: CT radiation dose optimization is achieved for this examination by one or more of the following dose reduction techniques- automated exposure control, adjustment of the mA and/or KV according to patient size, and/or utilization of iterative reconstruction technique. at 1700 Reported and signed by: Chaka Selby MD CC: Eliezer Diallo MD Technologist: Edyta Ochoa CTDI: 40.74 DLP: 1373.83Trscr Dt/Tm: 03/11/2020 (1700) by:Gifty Orig Print D/T: S: 03/11/2020 (9763) BATCH NO: N/A Name: ARCADIOBILL Samuel [facility] [place] Phys: Eliezer Singh MD [address] [facility] : 1955 Age: 64 Sex: M [place] Loc: T.ERS Exam Date: 03/11/2020 Status: REG ER PH: FAX: PAGE 1 Signed Report CREATININE POC 2020-03-11 16:42:00* Test Item Value Reference Range Interpretation Comments CREATININE POC (test code = CREATP) 1.17 mg/dL 0.6-1.3 N Urine drugs of abuse [id number] 09:22:40* Test Item Value Reference Range Interpretation Comments Amphetamine screen, urine (test code = 3349-8) Negative Barbiturate screen, urine (test code = 3377-9) Negative Benzodiazepine screen, urine (test code = 3390-2) Positive A Cocaine screen, urine (test code = 3397-7) Negative Methadone metabolite (EDDP), urine (test code = 05878-6) Negative Opiates screen, urine (test code = 3879-4) Negative Oxycodone screen, urine (test code = 76094-2) Negative Phencyclidine screen, urine (test code = 3936-2) Negative Tricyclic screen, urine (test code = 05675-4) Negative Cannabinoid screen, urine (test code = 3427-2) Negative Drug screen minimum concentration of detectabilityAmphetamines 1000 ng/mLBarbiturates 200 ng/mLBenzodiazepines 300 ng/mLCocaine 300 ng/mLMethadone 300 ng/mLOpiates 300 ng/mLOxycodone 300 ng/mLPhencyclidine 25 ng/mLCannabinoids 50 ng/mLTricyclics 1000 ng/mLResults are from screening tests and should only be used for medical evaluation. Drug testing for legal purposes requires definitive (or confirmatory) testing methods, which are available upon request. Contact the laboratory if definitive testing is required. Lab Interpretation (test code = 42849-5) Abnormal [facility] [id number] 08:25:02* Test Item Value Reference Range Interpretation Comments Salicylate (test code = 4024-6) <0.3 5-30 L Therapeutic Range: 5 - 30 mg/dL Lab Interpretation (test code = 30389-7) Abnormal [facility]Acetaminophen [id number] 08:25:02* Test Item Value Reference Range Interpretation Comments Acetaminophen level (test code = 3298-7) <15.0 10-30 [facility] RAPID [id number] 13:45:00* Test Item Value Reference Range Interpretation Comments Rapid HIV Result (test code = 8988) Negative Rapid HIV Control (test code = 8989) [facility] [id number] 03:48:00* Test Item Value Reference Range Interpretation Comments SODIUM (test code = NA) 140 mmol/L 136-145 N POTASSIUM (test code = K) 3.4 mmol/L 3.5-5.1 L CHLORIDE (test code = CL) 101.0 mmol/L 98-107 N CARBON DIOXIDE (test code = CO2) 30.0 mmol/L 21-32 N ANION GAP (test code = GAP) 12.4 10-20 N GLUCOSE (test code = GLU) 96 mg/dL 74-106 N BLOOD UREA NITROGEN (test code = BUN) 13 mg/dL 7-18 N GLOMERULAR FILTRATION RATE (test code = GFR) > 60 mL/min >=60 Estimated GFR by using Modified MDRD formula.Chronic kidney disease is defined as either kidney damageor GFR <60 mL/min/1.73 m2 for >3 months. CREATININE (test code = CREAT) 1.10 mg/dL 0.7-1.3 N BUN/CREATININE RATIO (test code = BUN/CREA) 11.9 10-20 N TOTAL PROTEIN (test code = PROT) 6.8 gram/dL 6.4-8.2 N ALBUMIN (test code = ALB) 3.3 g/dL 3.4-5.0 L GLOBULIN (test code = GLOB) 3.5 gram/dL 2.7-4.2 N ALBUMIN/GLOBULIN RATIO (test code = A/G) 0.9 0.75-1.50 N CALCIUM (test code = CA) 7.9 mg/dL 8.5-10.1 L BILIRUBIN TOTAL (test code = BILT) 2.70 mg/dL 0.0-1.0 H SGOT/AST (test code = AST) 351 IUnit/L 15-37 H SGPT/ALT (test code = ALT) 349 IUnit/L 12-78 H ALKALINE PHOSPHATASE TOTAL (test code = ALKP) 63 IUnit/L 45-117 N Note change in reference range due to change in reagent. COMPREHENSIVE METABOLIC [id number] 03:47:00* Test Item Value Reference Range Interpretation Comments SODIUM (test code = NA) 140 mmol/L 136-145 N POTASSIUM (test code = K) 3.4 mmol/L 3.5-5.1 L CHLORIDE (test code = CL) 101.0 mmol/L 98-107 N CARBON DIOXIDE (test code = CO2) mmol/L 21-32 ANION GAP (test code = GAP) 10-20 GLUCOSE (test code = GLU) mg/dL 74-106 BLOOD UREA NITROGEN (test code = BUN) mg/dL 7-18 GLOMERULAR FILTRATION RATE (test code = GFR) mL/min >=60 CREATININE (test code = CREAT) mg/dL 0.7-1.3 BUN/CREATININE RATIO (test code = BUN/CREA) 10-20 TOTAL PROTEIN (test code = PROT) gram/dL 6.4-8.2 ALBUMIN (test code = ALB) g/dL 3.4-5.0 GLOBULIN (test code = GLOB) gram/dL 2.7-4.2 ALBUMIN/GLOBULIN RATIO (test code = A/G) 0.75-1.50 CALCIUM (test code = CA) mg/dL 8.5-10.1 BILIRUBIN TOTAL (test code = BILT) mg/dL 0.0-1.0 SGOT/AST (test code = AST) IUnit/L 15-37 SGPT/ALT (test code = ALT) IUnit/L 12-78 ALKALINE PHOSPHATASE TOTAL (test code = ALKP) IUnit/L 45-117 CBC W/AUTO [id number] 03:35:00* Test Item Value Reference Range Interpretation Comments WHITE BLOOD CELL (test code = WBC) 11.5 K/mm3 4.5-12.5 N RED BLOOD CELL (test code = RBC) 3.51 mill/mm3 4.0-5.8 L HEMOGLOBIN (test code = HGB) 12.1 gram/dL 13.0-17.5 L HEMATOCRIT (test code = HCT) 35.5 % 42.0-52.0 L MEAN CELL VOLUME (test code = MCV) 101.1 fL 80-98 H MEAN CELL HGB (test code = MCH) 34.5 picogram 27.0-33.0 H MEAN CELL HGB CONCETRATION (test code = MCHC) 34.1 gram/dL 33.0-36. 0 N RED CELL DISTRIBUTION WIDTH (test code = RDW) 15.6 % 11.6-16. 2 N RED CELL DISTRIBUTION WIDTH SD (test code = RDW-SD) 55.4 fL 37 .0-51.0 H PLATELET COUNT (test code = PLT) 292 K/mm3 150-450 N MEAN PLATELET VOLUME (test code = MPV) 11.3 fL 6.7-11.0 H NEUTROPHIL % (test code = NT%) 44.1 % 39.0-69.0 N IMMATURE GRANULOCYTE % (test code = IG%) 0.3 % 0.0-5.0 N LYMPHOCYTE % (test code = LY%) 39.5 % 25.0-55.0 N MONOCYTE % (test code = MO%) 13.9 % 0.0-10.0 H EOSINOPHIL % (test code = EO%) 1.7 % 0.0-5.0 N BASOPHIL % (test code = BA%) 0.5 % 0.0-1.0 N NUCLEATED RBC % (test code = NRBC%) 0.3 % 0-0 H NEUTROPHIL # (test code = NT#) 5.06 K/mm3 1.8-7.7 N IMMATURE GRANULOCYTE # (test code = IG#) 0.04 x10 3/uL 0-0.03 H LYMPHOCYTE # (test code = LY#) 4.55 K/mm3 1.0-5.0 N MONOCYTE # (test code = MO#) 1.60 K/mm3 0-0.8 H EOSINOPHIL # (test code = EO#) 0.20 K/mm3 0.0-0.5 N BASOPHIL # (test code = BA#) 0.06 K/mm3 0.0-0.2 N NUCLEATED RBC # (test code = NRBC#) 0.04 K/mm3 0.0-0.1 N MANUAL DIFF REQUIRED (test code = MDIFF) NO VITAMIN [id number] 17:11:00* Test Item Value Reference Range Interpretation Comments VITAMIN B12 (test code = VITB12) 471 pg/mL 193-986 N FOLIC [id number] 17:11:00* Test Item Value Reference Range Interpretation Comments FOLIC ACID (test code = FOL) 15.8 ng/mL 3.10-17.50 N [id number] 16:50:00* Test Item Value Reference Range Interpretation Comments TROPONIN-I (test code = TROPI) <0.015 ng/mL 0-0.045 N COMMENTS TO SCRAP DROP CRANE OPERATOR: COLLECT 3 HOURS AFTER PREVIOUS [id number] 16:45:00* Test Item Value Reference Range Interpretation Comments AMMONIA (test code = AMM) 40 umol/L 11-32 H LIPID PROFILE (CORONARY RISK)2019-04-20 13:27:00* Test Item Value Reference Range Interpretation Comments TRIGLYCERIDES (test code = TRIG) 60 mg/dL 20-150 N CHOLESTEROL (test code = CHOL) 170 mg/dL 0-200 N CHOLESTEROL/HDL RATIO (test code = CHOLHDL) 1.0 RATIO 0-4.9 N RISK ASSOCIATED WITH CHOL/HDL RATIOS: Risk Male Female1/2 AVERAGE 3.43 3.27AVERAGE 4.97 4.442X AVERAGE 9.55 7.053X AVERAGE 23.39 11.04 REFERENCE VALUE IS RELATED TO RISK LEVELS ASRECOMMENDED BY THE HORTENSIA. HEART, LUNG, AND BLOOD INST. HDL CHOLESTEROL (test code = HDL) 93 mg/dL 40-60 H LIPOPROTEIN LDL (test code = LDL) 76 mg/dL 100-129 L Reference Interval: mg/dL mmol/L Optimal <100 <2.6Near/above optimal 100-129 2.6- 3.3Borderline High 130-159 3.4-4.1High 160-189 4.1-4.9Very High >=190 >=4.9========= This LDL result is a direct measurement.========= THYROID PROFILE [id number] 13:27:00* Test Item Value Reference Range Interpretation Comments T3 UPTAKE (test code = T3UP) 31.0 % 30.0-40.0 N T4 (THYROXINE) (test code = T4) 11.8 ug/dL 4.5-13.9 N T7 (FREE THYROXINE INDEX) (test code = T7) 3.65 FTI 1.3-5.1 N THYROID STIMULATING HORMONE (test code = TSH) 3.090 uIU/mL 0.36-3.7 4 N TSH REFERENCE RANGES: EUTHYROID: 0.35 - 4.3 mIU/mL HYPO : > 5.5 mIU/mL HYPER : < 0.35 mIU/mL [id number] 13:12:00* Test Item Value Reference Range Interpretation Comments TROPONIN-I (test code = TROPI) <0.015 ng/mL 0-0.045 N COMMENTS TO SCRAP DROP CRANE OPERATOR: COLLECT 3 HOURS AFTER PREVIOUS SAMPLEDRUGS OF ABUSE SCREEN [id number] 04:21:00* Test Item Value Reference Range Interpretation Comments UA PH DIPSTICK (test code = HERNANDO) 6.0 5.0-8.0 URN COCAINE (test code = COCAURN) NEGATIVE <300 ng/mL URN CANNABINOIDS (test code = CANNABURN) NEGATIVE <50 ng/mL URN AMPHETAMINE (test code = AMPHETURN) NEGATIVE <1000 ng/mL URN BARBITURATE (test code = BARBITURN) NEGATIVE <200 ng/mL URN BENZODIAZEPINE (test code = BENZOURN) NEGATIVE <200 ng/mL URN OPIATES (test code = OPIATURN) NEGATIVE <300 ng/mL URN PHENCYCLIDINE (PCP) (test code = PHENCURN) NEGATIVE <25 ng/ mL URN METHADONE (test code = METHAURN) NEGATIVE <300 ng/mL DRUGS OF ABUSE SCREEN [id number] 03:47:00* Test Item Value Reference Range Interpretation Comments UA PH DIPSTICK (test code = HERNANDO) 5.0-8.0 URN COCAINE (test code = COCAURN) NEGATIVE <300 ng/mL URN CANNABINOIDS (test code = CANNABURN) NEGATIVE <50 ng/mL URN AMPHETAMINE (test code = AMPHETURN) NEGATIVE <1000 ng/mL URN BARBITURATE (test code = BARBITURN) NEGATIVE <200 ng/mL URN BENZODIAZEPINE (test code = BENZOURN) NEGATIVE <200 ng/mL URN OPIATES (test code = OPIATURN) NEGATIVE <300 ng/mL URN PHENCYCLIDINE (PCP) (test code = PHENCURN) NEGATIVE <25 ng/ mL URN METHADONE (test code = METHAURN) NEGATIVE <300 ng/mL - XR CHEST 2 [id number] 02:49:00 FAX: Mirian Suero DO [place]: [address]: REG Name: BILL GARVIN [facility] : [birth year] Age/S: 63/M [address] [facility] Unit #: [id number] Loc: [place] [address] Phys: Mirian Suero DO Acct: [id number] Dis Date: Status: REG ER PHONE #: [phone] Exam Date: 04/20/2019 0145 FAX #: [phone] Reason: CHEST PAIN EXAMS: CPT CODE: [id number] XR CHEST 2 V 20371 AFTER HOURS SERVICE ON: 04/20/2019 2:48 AM Chest, PA and Lateral Location Code M12 History: CHEST PAIN Findings: Left hemidi aphragm is elevated. There is mild left basilar subsegmental atelectasis. There are no pleural effusions. There is no pneumothorax. Cardiac silho uette and mediastinum appear within normal limits. Impres jenna: Mild left basilar subsegmental atelectasis. at 0249 Reported and s igned by: Larisa Bar M.D. CC: Mirian Suero DO Technologist: Suri Verduzco [facility] Date/Time/By: 04/20/2019 (0249) : By: [email or web address] Orig Print D/T: S: 04/20/2019 (0252) PAGE 1 Signed Report BASIC METABOLIC [id number] 02:17:00* Test Item Value Reference Range Interpretation Comments SODIUM (test code = NA) 143 mmol/L 136-145 N POTASSIUM (test code = K) 3.3 mmol/L 3.5-5.1 L CHLORIDE (test code = CL) 106.0 mmol/L 98-107 N CARBON DIOXIDE (test code = CO2) 25.0 mmol/L 21-32 N ANION GAP (test code = GAP) 15.3 10-20 N GLUCOSE (test code = GLU) 126 mg/dL 74-106 H BLOOD UREA NITROGEN (test code = BUN) 16 mg/dL 7-18 N GLOMERULAR FILTRATION RATE (test code = GFR) > 60 mL/min >=60 Estimated GFR by using Modified MDRD formula.Chronic kidney disease is defined as either kidney damageor GFR <60 mL/min/1.73 m2 for >3 months. CREATININE (test code = CREAT) 1.20 mg/dL 0.7-1.3 N BUN/CREATININE RATIO (test code = BUN/CREA) 13.4 10-20 N CALCIUM (test code = CA) 8.8 mg/dL 8.5-10.1 N HEPATIC FUNCTION [id number] 02:17:00* Test Item Value Reference Range Interpretation Comments TOTAL PROTEIN (test code = PROT) 7.8 gram/dL 6.4-8.2 N ALBUMIN (test code = ALB) 3.6 g/dL 3.4-5.0 N GLOBULIN (test code = GLOB) 4.2 gram/dL 2.7-4.2 N ALBUMIN/GLOBULIN RATIO (test code = A/G) 0.9 0.75-1.50 N BILIRUBIN TOTAL (test code = BILT) 1.70 mg/dL 0.0-1.0 H BILIRUBIN DIRECT (test code = BILD) 0.60 mg/dL 0.0-0.20 H SGOT/AST (test code = AST) 563 IUnit/L 15-37 H SGPT/ALT (test code = ALT) 451 IUnit/L 12-78 H ALKALINE PHOSPHATASE TOTAL (test code = ALKP) 88 IUnit/L 45-117 N Note change in reference range due to change in reagent. [id number] 02:17:00* Test Item Value Reference Range Interpretation Comments LIPASE (test code = LIP) 85 U/L 73.0-393.0 N [id number] 02:17:00* Test Item Value Reference Range Interpretation Comments MAGNESIUM (test code = MAG) 1.7 mg/dL 1.8-2.4 L [id number] 02:17:00* Test Item Value Reference Range Interpretation Comments TROPONIN-I (test code = TROPI) <0.015 ng/mL 0-0.045 N [id number] 02:10:00* Test Item Value Reference Range Interpretation Comments ALCOHOL (test code = ALC) 71 mg/dL 0.0-3.0 H -- INTERPRETIVE DATA NOTE: POSITIVE SCREENING RESULTS SHOULD BE CONSIDERED PRESUMPTIVE.WHEN COLLECTED FOR MEDICAL PURPOSES ONLY. SPECIMEN WILL NOTBE COLLECTED BY CHAIN OF CUSTODY.IF A CONFIRMATION OF POSITIVE RESULTS IS DESIRED, ACONFIRMATION TEST MUST BE REQUESTED BY THE PHYSICIAN AT ANADDITIONAL CHARGE TO THE PATIENT. BASIC METABOLIC [id number] 02:05:00* Test Item Value Reference Range Interpretation Comments SODIUM (test code = NA) 143 mmol/L 136-145 N POTASSIUM (test code = K) 3.3 mmol/L 3.5-5.1 L CHLORIDE (test code = CL) 106.0 mmol/L 98-107 N CARBON DIOXIDE (test code = CO2) mmol/L 21-32 ANION GAP (test code = GAP) 10-20 GLUCOSE (test code = GLU) mg/dL 74-106 BLOOD UREA NITROGEN (test code = BUN) mg/dL 7-18 GLOMERULAR FILTRATION RATE (test code = GFR) mL/min >=60 CREATININE (test code = CREAT) mg/dL 0.7-1.3 BUN/CREATININE RATIO (test code = BUN/CREA) 10-20 CALCIUM (test code = CA) mg/dL 8.5-10.1 HEPATIC FUNCTION [id number] 02:05:00* Test Item Value Reference Range Interpretation Comments TOTAL PROTEIN (test code = PROT) gram/dL 6.4-8.2 ALBUMIN (test code = ALB) g/dL 3.4-5.0 GLOBULIN (test code = GLOB) gram/dL 2.7-4.2 ALBUMIN/GLOBULIN RATIO (test code = A/G) 0.75-1.50 BILIRUBIN TOTAL (test code = BILT) mg/dL 0.0-1.0 BILIRUBIN DIRECT (test code = BILD) mg/dL 0.0-0.20 SGOT/AST (test code = AST) IUnit/L 15-37 SGPT/ALT (test code = ALT) IUnit/L 12-78 ALKALINE PHOSPHATASE TOTAL (test code = ALKP) IUnit/L 45-117 [id number] 02:05:00* Test Item Value Reference Range Interpretation Comments LIPASE (test code = LIP) U/L 73.0-393.0 [id number] 02:05:00* Test Item Value Reference Range Interpretation Comments MAGNESIUM (test code = MAG) mg/dL 1.8-2.4 [id number] 02:05:00* Test Item Value Reference Range Interpretation Comments TROPONIN-I (test code = TROPI) ng/mL 0-0.045 CBC W/O [id number] 01:53:00* Test Item Value Reference Range Interpretation Comments WHITE BLOOD CELL (test code = WBC) K/mm3 4.5-12.5 RED BLOOD CELL (test code = RBC) mill/mm3 4.0-5.8 HEMOGLOBIN (test code = HGB) 13.1 gram/dL 13.0-17.5 N HEMATOCRIT (test code = HCT) % 42.0-52.0 MEAN CELL VOLUME (test code = MCV) fL 80-98 MEAN CELL HGB (test code = MCH) picogram 27.0-33.0 MEAN CELL HGB CONCETRATION (test code = MCHC) gram/dL 33.0-36. 0 RED CELL DISTRIBUTION WIDTH (test code = RDW) % 11.6-16. 2 PLATELET COUNT (test code = PLT) K/mm3 150-450 MEAN PLATELET VOLUME (test code = MPV) fL 6.7-11.0 CBC W/O [id number] 01:53:00* Test Item Value Reference Range Interpretation Comments WHITE BLOOD CELL (test code = WBC) 8.8 K/mm3 4.5-12.5 N RED BLOOD CELL (test code = RBC) 3.83 mill/mm3 4.0-5.8 L HEMOGLOBIN (test code = HGB) 13.1 gram/dL 13.0-17.5 N HEMATOCRIT (test code = HCT) 37.9 % 42.0-52.0 L MEAN CELL VOLUME (test code = MCV) 99.0 fL 80-98 H MEAN CELL HGB (test code = MCH) 34.2 picogram 27.0-33.0 H MEAN CELL HGB CONCETRATION (test code = MCHC) 34.6 gram/dL 33.0-36. 0 N RED CELL DISTRIBUTION WIDTH (test code = RDW) 15.4 % 11.6-16. 2 N PLATELET COUNT (test code = PLT) 302 K/mm3 150-450 N MEAN PLATELET VOLUME (test code = MPV) 10.3 fL 6.7-11.0 N Comprehensive Metabolic [id number] 02:36:23* Test Item Value Reference Range Interpretation Comments Sodium Level (test code = Sodium Level) 142.0 mmol/L 135.0-145.0 Potassium Level (test code = Potassium Level) see comment mmol/L 3. 5-5.1 N K=4.6AST=71Specimen slightly hemolyzed; K and AST may be falsely elevated. Suggest verify by recollect. Spoke with renu sosa Chloride Level (test code = Chloride Level) 99 mmol/L 98-105 CO2 (test code = CO2) 23 mmol/L 22-29 Anion Gap (test code = Anion Gap) 20 mmol/L 7-16 H BUN (test code = BUN) 12.50 mg/dL 8.00-23.00 Creatinine Level (test code = Creatinine Level) 0.90 mg/dL 0.70-1 .20 BUN/Creat Ratio (test code = BUN/Creat Ratio) 14 N Glucose Level (test code = Glucose Level) 121 mg/dL 70-115 H Calcium Level (test code = Calcium Level) 8.9 mg/dL 8.3-10.5 Alk Phos (test code = Alk Phos) 57 U/L 40-129 Bilirubin Total (test code = Bilirubin Total) 2.7 mg/dL 0.1-0.9 H Albumin Level (test code = Albumin Level) 4.9 g/dL 3.5-5.2 Protein Total (test code = Protein Total) 8.1 g/dL 6.4-8.3 ALT (test code = ALT) 54 U/L 1-41 H AST (test code = AST) see comment U/L 1-40 N K=4 .6AST=71Specimen slightly hemolyzed; K and AST may be falsely elevated. Suggest verify by recollect. Spoke with renu sosa Globulin (test code = Globulin) 3.2 g/dL 2.9-3.1 H A/G Ratio (test code = A/G Ratio) 1.5 ratio N Comprehensive Metabolic [id number] 02:36:23* Test Item Value Reference Range Interpretation Comments Sodium Level (test code = Sodium Level) 142.0 mmol/L 135.0-145.0 Potassium Level (test code = Potassium Level) see comment mmol/L 3. 5-5.1 N K=4.6AST=71Specimen slightly hemolyzed; K and AST may be falsely elevated. Suggest verify by recollect. Spoke with j loffe Chloride Level (test code = Chloride Level) 99 mmol/L 98-105 CO2 (test code = CO2) 23 mmol/L 22-29 Anion Gap (test code = Anion Gap) 20 mmol/L 7-16 H BUN (test code = BUN) 12.50 mg/dL 8.00-23.00 Creatinine Level (test code = Creatinine Level) 0.90 mg/dL 0.70-1 .20 BUN/Creat Ratio (test code = BUN/Creat Ratio) 14 N Glucose Level (test code = Glucose Level) 121 mg/dL 70-115 H Calcium Level (test code = Calcium Level) 8.9 mg/dL 8.3-10.5 Alk Phos (test code = Alk Phos) 57 U/L 40-129 Bilirubin Total (test code = Bilirubin Total) 2.7 mg/dL 0.1-0.9 H Albumin Level (test code = Albumin Level) 4.9 g/dL 3.5-5.2 Protein Total (test code = Protein Total) 8.1 g/dL 6.4-8.3 ALT (test code = ALT) 54 U/L 1-41 H AST (test code = AST) see comment U/L 1-40 N K=4 .6AST=71Specimen slightly hemolyzed; K and AST may be falsely elevated. Suggest verify by recollect. Spoke with renu muellerffe Globulin (test code = Globulin) 3.2 g/dL 2.9-3.1 H A/G Ratio (test code = A/G Ratio) 1.5 ratio N eGFR AA (test code = eGFR AA) >60 mL/min/1.73 m2 N eGFR (estimated Glomerular Filtration Rate) is an estimated value, calculated from the patient's serum creatinine using the MDRD equation. It is NOT the patient's actual GFR. The eGFR provides a more clinically useful measure of kidney disease than serum creatinine alone.This calculation takes sex and race into account, if the information is provided. If the race is not provided, and the patient is -Wel[place], multiply by 1.212. If sex is not provided, and the patient is female, multiply by 0.742. Results for patients <18 years of age have not been validated by the MDRD study and should be interpreted with caution. eGFR Result Interpretation:eGFR > or = 60 is in the Normal RangeeGFR < 60 may mean kidney diseaseeGFR < 15 may mean kidney failure Ranges recommended by the National Kidney Foundation, http://nkdep.nih.gov eGFR Non-AA (test code = eGFR Non-AA) >60.00 mL/min/1.73 m2 N eGFR (estimated Glomerular Filtration Rate) is an estimated value, calculated from the patient's serum creatinine using the MDRD equation. It is NOT the patient's actual GFR. The eGFR provides a more clinically useful measure of kidney disease than serum creatinine alone.This calculation takes sex and race into account, if the information is provided. If the race is not provided, and the patient is -Wel[place], multiply by 1.212. If sex is not provided, and the patient is female, multiply by 0.742. Results for patients <18 years of age have not been validated by the MDRD study and should be interpreted with caution. eGFR Result Interpretation:eGFR > or = 60 is in the Normal RangeeGFR < 60 may mean kidney diseaseeGFR < 15 may mean kidney failure Ranges recommended by the [employer], http://nkdep.nih.gov Comprehensive Metabolic [id number] 02:36:23* Test Item Value Reference Range Interpretation Comments Sodium Level (test code = Sodium Level) 142.0 mmol/L 135.0-145.0 Potassium Level (test code = Potassium Level) see comment mmol/L 3. 5-5.1 N K=4.6AST=71Specimen slightly hemolyzed; K and AST may be falsely elevated. Suggest verify by recollect. Spoke with j loffe Chloride Level (test code = Chloride Level) 99 mmol/L 98-105 CO2 (test code = CO2) 23 mmol/L 22-29 Anion Gap (test code = Anion Gap) 20 mmol/L 7-16 H BUN (test code = BUN) 12.50 mg/dL 8.00-23.00 Creatinine Level (test code = Creatinine Level) 0.90 mg/dL 0.70-1 .20 BUN/Creat Ratio (test code = BUN/Creat Ratio) 14 N Glucose Level (test code = Glucose Level) 121 mg/dL 70-115 H Calcium Level (test code = Calcium Level) 8.9 mg/dL 8.3-10.5 Alk Phos (test code = Alk Phos) 57 U/L 40-129 Bilirubin Total (test code = Bilirubin Total) 2.7 mg/dL 0.1-0.9 H Albumin Level (test code = Albumin Level) 4.9 g/dL 3.5-5.2 Protein Total (test code = Protein Total) 8.1 g/dL 6.4-8.3 ALT (test code = ALT) 54 U/L 1-41 H AST (test code = AST) see comment U/L 1-40 N K=4 .6AST=71Specimen slightly hemolyzed; K and AST may be falsely elevated. Suggest verify by recollect. Spoke with renu muellerffe Globulin (test code = Globulin) 3.2 g/dL 2.9-3.1 H A/G Ratio (test code = A/G Ratio) 1.5 ratio N eGFR AA (test code = eGFR AA) >60 mL/min/1.73 m2 N eGFR (estimated Glomerular Filtration Rate) is an estimated value, calculated from the patient's serum creatinine using the MDRD equation. It is NOT the patient's actual GFR. The eGFR provides a more clinically useful measure of kidney disease than serum creatinine alone.This calculation takes sex and race into account, if the information is provided. If the race is not provided, and the patient is -[place], multiply by 1.212. If sex is not provided, and the patient is female, multiply by 0.742. Results for patients <18 years of age have not been validated by the MDRD study and should be interpreted with caution. eGFR Result Interpretation:eGFR > or = 60 is in the Normal RangeeGFR < 60 may mean kidney diseaseeGFR < 15 may mean kidney failure Ranges recommended by the National Kidney Foundation, http://nkdep.nih.gov eGFR Non-AA (test code = eGFR Non-AA) >60.00 mL/min/1.73 m2 N eGFR (estimated Glomerular Filtration Rate) is an estimated value, calculated from the patient's serum creatinine using the MDRD equation. It is NOT the patient's actual GFR. The eGFR provides a more clinically useful measure of kidney disease than serum creatinine alone.This calculation takes sex and race into account, if the information is provided. If the race is not provided, and the patient is -[place], multiply by 1.212. If sex is not provided, and the patient is female, multiply by 0.742. Results for patients <18 years of age have not been validated by the MDRD study and should be interpreted with caution. eGFR Result Interpretation:eGFR > or = 60 is in the Normal RangeeGFR < 60 may mean kidney diseaseeGFR < 15 may mean kidney failure Ranges recommended by the National Kidney Foundation, http://nkdep.nih.gov Lipase [id number] 23:59:46* Test Item Value Reference Range Interpretation Comments Lipase Level (test code = Lipase Level) 22 U/L 13-60 Automated [id number] 23:41:25* Test Item Value Reference Range Interpretation Comments Neutro Auto (test code = Neutro Auto) 73.1 % 36.0-70.0 H Lymph Auto (test code = Lymph Auto) 16.4 % 12.0-44.0 [place] Auto (test code = [place] Auto) 9.5 % 0.0-11.0 Eos, Auto (test code = Eos, Auto) 0.0 % 0.0-7.0 Basophil Auto (test code = Basophil Auto) 0.5 % 0.0-2.0 Neutro Absolute (test code = Neutro Absolute) 7.8 x10 1.6-7.4 H Lymph Absolute (test code = Lymph Absolute) 1.75 x10 .50-4.60 [place] Absolute (test code = [place] Absolute) 1.02 x10 .00-1.20 Eos Absolute (test code = Eos Absolute) 0.00 x10 0.00-0.74 Baso Absolute (test code = Baso Absolute) 0.05 x10 0.00-0.21 IG [id number] 23:41:25* Test Item Value Reference Range Interpretation Comments IG (test code = IG) 0.5 % 0.0-5.0 IG Abs (test code = IG Abs) 0 x10 N Complete Blood Count with [id number] 23:41:24* Test Item Value Reference Range Interpretation Comments WBC (test code = WBC) 10.7 x10 4.4-10.5 H RBC (test code = RBC) 4.22 x10 4.10-5.70 Hgb (test code = Hgb) 14.4 g/dL 13.4-17.4 Hct (test code = Hct) 40.6 % 38.7-52.0 MCV (test code = MCV) 96.20 fL 80.00-100.00 MCHC (test code = MCHC) 35.50 g/dL 32.00-37.50 MCH (test code = MCH) 34.1 pg 27.0-32.5 H RDW CV (test code = RDW CV) 13.9 % 11.5-14.5 Platelets (test code = Platelets) 330.0 x10 140.0-440.0 MPV (test code = MPV) 11.3 fL N Slide Review (test code = Slide Review) Auto Auto Result created by [email or web address] nRBC (test code = nRBC) 0 N NRBC Abs (test code = NRBC Abs) 0.00 x10 N IPF (test code = IPF) 0 % N CT Brain/Head w/o [id number] 11:48:33Patient: BILL MCKNIGHT Date/Time10/16/2018 11:35 CSTReason for ExamHeadache(s)ReportLocation R 16CT SCAN OF THE HEAD WITHOUT CONTRASTCLINICAL HISTORY: HeadacheTECHNIQUE: Helical CT was performed from the skull base to the vertex without IV contrast and provided at 5 mm slice thickness. Coronal and sagittal reconstruction provided. Axial images provided in bone windows as well. One or more the following dose reduction techniques is utilized: Use of iterative reconstruction, automated exposure control, adjustment of the mAs and Kv for the patient's weight. DLP 1017.1 mGy-cm.F INDINGS:There is no CT evidence of acute infarct. No intra or extra-axial hemorr leonila or fluid collections. No midline shift or mass effect. Posterior fossa cont ents are intact.Visualized orbits, paranasal sinus and mastoid air spaces appear within normal limits. Calvarium is intact.IMPRESSION:No acute intracranial find ings. Final Dictated by: MD Troncoso Eniola FDictated DT/T M: 10/16/2018 11:47 amSigned by: MD Troncoso Eniola FSigned (Electroni c Signature): 10/16/2018 11:48 am
[2020-07-11 06:15] LABS: CLARITY,URINE SL CLOUDY (CLEAR); COLOR,URINE YELLOW (YELLOW); LEUKOCYTE ESTERASE ,URINE NEGATIVE (NEGATIVE); NITRITE,URINE NEGATIVE (NEGATIVE); PROTEIN,URINE DIPSTICK NEGATIVE (NEGATIVE)
[2020-07-11 06:16] LABS: AMPHETAMINES SCREEN,URINE NEGATIVE (NEGATIVE); BENZODIAZEPINES SCREEN,URINE NEGATIVE (NEGATIVE); KETONES,URINE 1+ (NEGATIVE); PHENCYCLIDINE SCREEN,URINE NEGATIVE (NEGATIVE); URINE UROBILINOGEN 1 mg/dL (0.2 - 1)
[2020-07-11 06:17] LABS: BACTERIA,URINE RARE /HPF; BILIRUBIN,URINE NEGATIVE (NEGATIVE); EPITHELIAL CELLS,URINE FEW /LPF; RBC,URINE 0-5 /HPF (0-5); WBC,URINE (MAN) 0-5 /HPF (0-5)
--- NOTE | 2020-07-11 06:47 | NUR ---
ADMIN APPROVAL - KEVAN GRAY @ [address] [facility] - DR. MORLEY, ALFONSO @ [address] [place] [id number] ROOM - ICU BED 10 FAX - REPORT -
[2020-07-11] MEDS ORDERED: LORAZEPAM 1 MG TAB PO ONE (07:45)
== END 2020-07-11 08:47 | disposition other institution (70) ==
LOC: ER 02:45
DX: F10.239 Alcohol dependence with withdrawal, unspecified (principal); E03.9 Hypothyroidism, unspecified; B19.20 Unspecified viral hepatitis C without hepatic coma; G40.909 Epilepsy, unspecified, not intractable, without status epilepticus
CPT/HCPCS: 36415; 70450; 71045; 73562; 80053; 80307; 80320; 81001; 82150; 82550; 82553; 83690; 84484; 85025; 93005; 96374; 96375; 99284; J2405; J3411; J7030; U0002